=== PATIENT | male | born 1960 | race Caucasian/White ===

== ENCOUNTER → 2024-11-18 | Outpatient (CLI) | payer MEDICARE, SELFPAY | END | disposition home or self-care (01) | LOC: LAB 11:25 | PROVIDERS: Referring Provider Physician Assistant; Visit Provider Physician Assistant | DX: E03.9 Hypothyroidism, unspecified (principal) | CPT/HCPCS: 36415; 84443 ==

== ENCOUNTER 2024-12-28 10:11 | Inpatient (IN) | payer MEDICARE, SELFPAY ==
[2024-10-15 11:53] LABS: Hematocrit 47.4 % (40-54); Hemoglobin 16.6 g/dL (13.0-16.5); Mean Corp Hgb Conc 35.0 g/dL (32-36); Mean Corpuscular Volume 91.3 fL (80-94); Mean Platelet Vol. 10.6 fl (6.2-12.0); Platelet Count 215 K/mm3 (150-450); RBC Distribution Width CV 14.2 % (11.6-14.6); RBC Distribution Width SD 47.8 fl (35.1-43.9); Red Blood Count 5.19 M/mm3 (4.6-6.2); White Blood Count 6.7 K/mm3 (4.4-11.0)
[2024-10-15 12:38] LABS: Anion Gap 12 (5-15); BUN 16 mg/dL (4-19); BUN/Creat Ratio 14.0 RATIO (10-20); Calcium,Total 9.5 mg/dL (7.6-11.0); Carbon Dioxide 25.8 mmol/L (21.0-32.0); Chloride 100 mmol/L (98-108); Glucose 114 mg/dL (70-99); Potassium 4.0 mmol/L (3.3-5.1)
--- NOTE | 2024-10-18 09:13 | PAT.ANESEVAL ---
Pre-Assessment Diagnosis/Proposed Procedure Planned Operative Procedure(s): Carotidstent, in Licensed Physical Therapy Assistant, OR Staff, Callie FERNANDES Anesthesia History Anesthesia History - solutions specialist: Anesthesia History - solutions specialist Hx Hospitalization No 10/05/24 15:10 Any Problems With Anesthesia No 10/05/24 15:10 Cholinesterase deficiency No 10/05/24 15:10 You/Your Family Experience No 10/05/24 15:10 fever (hyperthermia) with Relationship Recent Exposure to Contagious Disease Does patient have nerve No 10/05/24 15:10 stimulator Patient instructed to have device shut off --Does patient have Pacemaker or ICD? When Was Last Pacemaker Check QUESTION #4 FULL TEXT: You/Your Family Experience fever (hyperthermia) with Anesthesia Last Oral Intake Last Oral intake: Last Oral Intake NPO since Meds taken in AM with sips of water? 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 - solutions specialist: PONV - solutions specialist Female No 10/05/24 15:10 HX of Motion Sickness No 10/05/24 15:10 HX of N/V After Surgery No 10/05/24 15:10 Non-Smoker Yes 10/05/24 15:10 Duration of Surgery greater No 10/05/24 15:10 than 60 minutes Number of Risk Factors 1 10/05/24 15:10 PONV Score Low Risk 10/05/24 15:10 Respiratory Assessment Respiratory Assessment - solutions specialist: Respiratory Tract Infection Hx - solutions specialist Hx Respiratory Tract Infection No 10/05/24 15:10 STOP Sleep Apnea STOP Sleep Apnea - solutions specialist: STOP Sleep Apnea - solutions specialist Hx Hypertension Yes 10/05/24 15:10 Hx Sleep Apnea No 10/05/24 15:10 CPAP BIPAP Do you snore loudly (louder No 10/05/24 15:10 than talking or can be heard Do you often feel tired/ No 10/05/24 15:10 fatigued/ sleepy during daytime? Has anyone observed you stop No 10/05/24 15:10 breathing during sleep? STOP Results Negative 10/05/24 15:10 QUESTION #5 FULL TEXT : Do you snore loudly (louder than talking or can be heard through closed doors)? 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 Specify any problems Hx of Preganancy in last 3 N/A 10/05/24 15:10 Months Nurse Filling Out Transfusion [id number] 10/05/24 15:10 & Questions: Date: 10/05/24 10/05/24 15:10 Time: 15:13 10/05/24 15:10 Patient unable to answer at this time (ie. confused, unrespo /Reproduction History /Reproductive History - solutions specialist: /Reproductive Hx- solutions specialist Hx Now Gestational Age (in weeks): EDC: Hx Hx Para Hx Section SAB PFSH Medical History Wears glasses Alcohol use Thyroid disease Restless legs syndrome (RLS) Stroke/cerebrovascular accident Former smoker Carotid artery stenosis Acute right arterial ischemic stroke, middle cerebral artery (MCA) Hypertension Hypothyroid Hyperlipidemia Diabetes mellitus Home Medications ?Medication ?Instructions ?Recorded ?Last Taken ?Type aspirin 81 mg tablet,delayed 81 mg PO QDAY 08/05/24 Unknown History release (Adult Aspirin Regimen) atorvastatin 80 mg tablet 80 mg PO QDAY 08/05/24 Unknown History clopidogrel 75 mg tablet 75 mg PO QDAY 08/05/24 Unknown History hydrochlorothiazide 25 mg tablet 25 mg PO QDAY 08/05/24 Unknown History levothyroxine 75 mcg capsule 225 mcg PO QDAY 08/05/24 Unknown History metformin 1,000 mg tablet 1,000 mg PO BIDWMEAL 08/05/24 Unknown History Allergy/AdvReac Type Severity Reaction Status Date / Time duloxetine Allergy Nausea Verified 09/20/24 10:18 Penicillins Allergy Rash Verified 09/20/24 10:18 Family History Mother Breast cancer Father Alcohol abuse Surgical History H/O carotid endarterectomy (~06/16/17) History of cholecystectomy (~1992) Social History Smoking Status: Former smoker how long ago did patient quit smokin years Audit: Pertinent Findings Pertinent Findings Additional pertinent findings: TSH is 98.2. Should be optimized prior to surgery by physician managing hypothyroidism. Recommendation Anesthesia Recommendation Anesthesia recommendation: F/U recommended
--- NOTE | 2024-12-21 10:12 | EKG12_ITS ---
Test Reason : PREOP Blood Pressure : */* mmHG Vent. Rate : 56 BPM Atrial Rate : 56 BPM P-R Int : 180 ms QRS Dur : 102 ms QT Int : 438 ms P-R-T Axes : 44 -52 41 degrees QTcB Int : 422 ms Sinus bradycardia with sinus arrhythmia Left anterior fascicular block Abnormal ECG Confirmed by Ganga Willams ([id number]), video effects editor BRICE MEDEROS ([id number]) on 12/22/2024 1:43:45 PM Referred By: Roshan Burks Confirmed By: Ganga Willams
[2024-12-21 10:57] LABS: Hematocrit 50.4 % (40-54); Hemoglobin 17.2 g/dL (13.0-16.5); Immature Granulocytes Count 0.010 X10^3/uL (0.0-0.0); Mean Corp Hgb Conc 34.1 g/dL (32-36); Mean Corpuscular Volume 95.6 fL (80-94); Mean Platelet Vol. 10.1 fl (6.2-12.0); NRBC Flagged by Analyzer 0 % (0-5); Platelet Count 200 K/mm3 (150-450); RBC Distribution Width CV 13.6 % (11.6-14.6); RBC Distribution Width SD 48.2 fl (35.1-43.9); Red Blood Count 5.27 M/mm3 (4.6-6.2); White Blood Count 5.6 K/mm3 (4.4-11.0)
[2024-12-21 12:03] LABS: Anion Gap 11 (5-15); BUN 11 mg/dL (4-19); BUN/Creat Ratio 13.6 RATIO (10-20); Calcium,Total 9.5 mg/dL (7.6-11.0); Carbon Dioxide 26.4 mmol/L (21.0-32.0); Chloride 104 mmol/L (98-108); Glucose 95 mg/dL (70-99); Potassium 4.3 mmol/L (3.3-5.1)
--- NOTE | 2024-12-21 16:07 | PAT.ANE_ITS ---
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 When Was Last Pacemaker Check QUESTION #4 FULL TEXT: You/Your Family Experience fever (hyperthermia) with Anesthesia Last Oral Intake Last Oral intake: Last Oral Intake NPO since Meds taken in AM with sips of water? 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 Female No 12/14/24 14:00 HX of Motion Sickness No 12/14/24 14:00 HX of N/V After Surgery No 12/14/24 14:00 Non-Smoker Yes 12/14/24 14:00 Duration of Surgery greater No 12/14/24 14:00 than 60 minutes Number of Risk Factors 1 12/14/24 14:00 PONV Score Low Risk 12/14/24 14:00 Respiratory Assessment Respiratory Assessment - garbage pick up worker: Respiratory Tract Infection Hx - garbage pick up worker Hx Respiratory Tract Infection No 12/14/24 14:00 STOP Sleep Apnea STOP Sleep Apnea - garbage pick up worker: STOP Sleep Apnea - garbage pick up worker Hx Hypertension Yes 12/14/24 14:00 Hx Sleep Apnea No 12/14/24 14:00 CPAP BIPAP Do you snore loudly (louder No 12/14/24 14:00 than talking or can be heard Do you often feel tired/ No 12/14/24 14:00 fatigued/ sleepy during daytime? Has anyone observed you stop No 12/14/24 14:00 breathing during sleep? STOP Results Negative 12/14/24 14:00 QUESTION #5 FULL TEXT : Do you snore loudly (louder than talking or can be heard through closed doors)? 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 Specify any problems Hx of Preganancy in last 3 N/A 12/14/24 14:00 Months Nurse Filling Out Transfusion [email or web address] 12/14/24 14:00 & Questions: Date: 12/14/24 12/14/24 14:00 Time: 14:00 12/14/24 14:00 Patient unable to answer at this time (ie. confused, unrespo /Reproduction History /Reproductive History - garbage pick up worker: /Reproductive Hx- garbage pick up worker Hx Now Gestational Age (in weeks): EDC: Hx Hx Para Hx Section SAB PFSH Medical History (Updated 12/14/24 @ 14:05 by Patrick Magaña) Cardiology follow-up encounter Wears glasses Alcohol use Thyroid disease Restless legs syndrome (RLS) Stroke/cerebrovascular accident Former smoker Carotid artery stenosis Acute right arterial ischemic stroke, middle cerebral artery (MCA) Hypertension Hypothyroid Hyperlipidemia Diabetes mellitus Home Medications ?Medication ?Instructions ?Recorded ?Last Taken ?Type aspirin 81 mg tablet,delayed 81 mg PO QDAY 08/05/24 Un known History release (Adult Aspirin Regimen) atorvastatin 80 mg tablet 80 mg PO QDAY 08/05/24 Unkno wn History clopidogrel 75 mg tablet 75 mg PO QDAY 08/05/24 Unkno wn History hydrochlorothiazide 25 mg tablet 25 mg PO QDAY 5 Unknown History levothyroxine 75 mcg capsule 225 mcg PO QDAY 08/05/24 Unknown History metformin 1,000 mg tablet 1,000 mg PO BIDWMEAL 5 Unknown History Allergy/AdvReac Type Severity Reaction Status Date / Time duloxetine Allergy Nausea Verified 12/14/24 13:58 Penicillins Allergy Rash Verified 12/14/24 13:58 Family History Mother Breast cancer Father Alcohol abuse Surgical History H/O carotid endarterectomy (~06/16/17) History of cholecystectomy (~1992) Social History Smoking Status: Former smoker how long ago did patient quit smokin years Audit: Pertinent Findings HISTORY of Pertinent Findings History of Pertinent Findings: Additional Pertinent Findings Additional pertinent findings TSH is 98.2. Should be 10/18/24 09:17 optimized prior to surgery by physician managing hypothyroidism. Pertinent Findings EKG Perinent findings: 12/21/2024 Sinus bradycardia with sinus arryhthmia, LAFB, abnormal EKG. No previous EKGs Recommendation Anesthesia Recommendation Anesthesia recommendation: F/U recommended Follow up Details Consult Recommendation: Yes Consult Rec Details: Pre-op cardiology consult
--- NOTE | 2024-12-23 14:03 | PAT.ANESEVAL ---
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 When Was Last Pacemaker Check QUESTION #4 FULL TEXT: You/Your Family Experience fever (hyperthermia) with Anesthesia Last Oral Intake Last Oral intake: Last Oral Intake NPO since Meds taken in AM with sips of water? 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 Female No 12/14/24 14:00 HX of Motion Sickness No 12/14/24 14:00 HX of N/V After Surgery No 12/14/24 14:00 Non-Smoker Yes 12/14/24 14:00 Duration of Surgery greater No 12/14/24 14:00 than 60 minutes Number of Risk Factors 1 12/14/24 14:00 PONV Score Low Risk 12/14/24 14:00 Respiratory Assessment Respiratory Assessment - voting machine repairer: Respiratory Tract Infection Hx - voting machine repairer Hx Respiratory Tract Infection No 12/14/24 14:00 STOP Sleep Apnea STOP Sleep Apnea - voting machine repairer: STOP Sleep Apnea - voting machine repairer Hx Hypertension Yes 12/14/24 14:00 Hx Sleep Apnea No 12/14/24 14:00 CPAP BIPAP Do you snore loudly (louder No 12/14/24 14:00 than talking or can be heard Do you often feel tired/ No 12/14/24 14:00 fatigued/ sleepy during daytime? Has anyone observed you stop No 12/14/24 14:00 breathing during sleep? STOP Results Negative 12/14/24 14:00 QUESTION #5 FULL TEXT : Do you snore loudly (louder than talking or can be heard through closed doors)? 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 Specify any problems Hx of Preganancy in last 3 N/A 12/14/24 14:00 Months Nurse Filling Out Transfusion [email or web address] 12/14/24 14:00 & Questions: Date: 12/14/24 12/14/24 14:00 Time: 14:00 12/14/24 14:00 Patient unable to answer at this time (ie. confused, unrespo /Reproduction History /Reproductive History - voting machine repairer: /Reproductive Hx- voting machine repairer Hx Now Gestational Age (in weeks): EDC: Hx Hx Para Hx Section SAB PFSH Medical History (Updated 12/14/24 @ 14:05 by Patrick Magaña) Cardiology follow-up encounter Wears glasses Alcohol use Thyroid disease Restless legs syndrome (RLS) Stroke/cerebrovascular accident Former smoker Carotid artery stenosis Acute right arterial ischemic stroke, middle cerebral artery (MCA) Hypertension Hypothyroid Hyperlipidemia Diabetes mellitus Home Medications ?Medication ?Instructions ?Recorded ?Last Taken ?Type aspirin 81 mg tablet,delayed 81 mg PO QDAY 08/05/24 Unknown History release (Adult Aspirin Regimen) atorvastatin 80 mg tablet 80 mg PO QDAY 08/05/24 Unknown History clopidogrel 75 mg tablet 75 mg PO QDAY 08/05/24 Unknown History hydrochlorothiazide 25 mg tablet 25 mg PO QDAY 08/05/24 Unknown History levothyroxine 75 mcg capsule 225 mcg PO QDAY 08/05/24 Unknown History metformin 1,000 mg tablet 1,000 mg PO BIDWMEAL 08/05/24 Unknown History Allergy/AdvReac Type Severity Reaction Status Date / Time duloxetine Allergy Nausea Verified 12/14/24 13:58 Penicillins Allergy Rash Verified 12/14/24 13:58 Family History Mother Breast cancer Father Alcohol abuse Surgical History H/O carotid endarterectomy (~06/16/17) History of cholecystectomy (~1992) Social History Smoking Status: Former smoker how long ago did patient quit smokin years Audit: Pertinent Findings HISTORY of Pertinent Findings History of Pertinent Findings: EKG Pertinent Findings EKG Perinent findings 12/21/2024 Sinus bradycardia 12/21/24 16:14 with sinus arryhthmia, LAFB , abnormal EKG. No previous EKGs Additional Pertinent Findings Additional pertinent findings TSH is 98.2. Should be 10/18/24 09:17 optimized prior to surgery by physician managing hypothyroidism. Pertinent Findings EKG Perinent findings: 12/19/2024 with normal sinus rhythm and right bundle branch block, LAFB unchanged from 2021. Consult pertinent findings: Patient seen by clay plant treater on 12/23/2024 with comments on EKG and cardiovascular status. Patient was deemed to cardiovascularly stable and okay to proceed with procedure. Not to stop clopidogrel. Recommendation Anesthesia Recommendation Anesthesia recommendation: OPTIMIZED for anesthesia
[2024-12-28] VITALS (27 sets, daily range): BP systolic 111–151; BP diastolic 44–83; PULSE 51–75; RESP 10–21; TEMP 36.2–36.7; O2SAT 94–100; BMI 35.7; BMI 36.6
--- OUTSIDE RECORDS SUMMARY | 2024-12-28 05:40 | XMS RPT_ITS | CCD ---
Author Organization [facility] Care Team Providers Care Simulation Software Engineer Name Role Phone Zaugg, Rachel D Primary Care Provider Zuly Manriquez Attending Provider [phone] Zaugg, Rachel Primary Care Provider Unavailab le Zaugg, Rachel Referring Provider Unavailable Vitaliy MAYORGA, Dr. Islas Attending Provider [phone] ZAUGG, RACHEL Primary Care Provider Zuly Manriquez Referring Provider [phone] ZAUGG, RACHEL Primary Care Provider Unavailab le ZAUGG, RACHEL Referring Provider Unavailable Zaugg DO, Rachel D Primary Care Provider Zaugg DO, Rachel D Primary Care Provider ZAUGG, RACHEL D Primary Care Unavailable ALLIE GRANDE Attending Unavailable ZAUGG, RACHEL Attending Unavailable ZAUGG, RACHEL Primary Care Unavailable ZAUGG, RACHEL Attending Unavailable ZAUGG, RACHEL Primary Care Unavailable AUBRIE PALMER Attending Unavailable ZAUGG, RACHEL Primary Care Unavailable BEN JUSTICE Attending Unavailable ZAUGG, RACHEL Primary Care Unavailable MART ATKINSON Attending Unavailable MART ATKINSON Referring Unavailable ZAUGG, RACHEL Primary Care Unavailable Ruggiero, Zuly Attending Unavailable Ruggiero, Zuly Attending Unavailable GALOWNIA, A Primary Care Unavailable GALOWNIA, A Referring Unavailable Ruggiero, Zuly Attending Unavailable Ruggiero, Zuly Referring Unavailable GALOWNIA, A Primary Care Unavailable Ruggiero, Zuly Attending Unavailable Ruggiero, Zuly Referring Unavailable GALOWNIA, A Primary Care Unavailable Ruggiero, Zuly Attending Unavailable GALOWNIA, A Primary Care Unavailable GALOWNIA, A Referring Unavailable Mart Atkinson Attending Unavailable Mart Atkinson Referring Unavailable Sim LEBLANC Primary Care Unavailable Mart Atkinson Admitting Unavailable Mart Atkinson Attending Unavailable Allergies Allergy Classification Reported Allergen(s) Allergy Type Date of Onset Reaction(s) Facility (13 sources) Erythromycin; Translations: [ERYTHROMYCIN] Drug Allergy 8 [place], [place] (6 sources) Penicillins; Translations: [PENICILLINS] Propensity to adverse reactions to drug 9 [place] (20 sources) DULoxetine; Translations: [DULOXETINE] Drug Allergy 2 Other (See Comments), Nausea Only, Vomiting, Other: See Comments [facility] [employer] Phone: (20 sources) Penicillins Drug Allergy 2 [facility] (2 sources) Penicillins Allergy to substance 5 [facility] (1 source) Penicillins Drug Allergy 9 Unknown [facility] (1 source) DULoxetine Drug Allergy 5 [facility] (1 source) Penicillins Drug allergy (disorder) 5 [facility] Medications Current Medications Medication Drug Class(es) Dates Sig (Normalized) Sig (Original) amLODIPine 5 mg oral tablet (20 sources) Dihydropyridine Calcium Channel Alejandra Start: 10-22-2022 End: 11-04-2024 take 1 tablet by mouth once daily amLODIPine (Norvasc) 5 MG tablet Indications: Primary hypertension Take 1 tablet (5 mg) by mouth daily. 90 tablet 3 11/04/2024 Active Start: 02-10-2022 take 1 tablet by casimiro th in the morning amLODIPine (Norvasc) 5 MG tablet Take 5 mg by mouth in the morning. 0 02/10/2022 Active Start: 01-17-2022 take 1 tablet by casimiro th once daily amLODIPine (NORVASC) 5 MG tablet Indications: Hypertension, unspecified type Take 1 tablet by mouth daily 90 tablet 1 01/17/2022 Active Start: 06-28-2021 take 1 tablet by casimiro th once daily amLODIPine (NORVASC) 5 MG tablet Indications: Hypertension, unspecified type Take 1 tablet by mouth daily 90 tablet 1 06/28/2021 Active Start: 01-19-2021 take 1 tablet by casimiro th once daily amLODIPine (NORVASC) 5 MG tablet Indications: Hypertension, unspecified type Take 1 tablet by mouth once daily 90 tablet 1 01/19/2021 Active Start: 01-13-2020 take 1 tablet by casimiro th once daily amLODIPine (NORVASC) 5 MG tablet Indications: Hypertension, unspecified type TAKE 1 TABLET BY MOUTH ONCE DAILY 90 tablet 3 01/13/2020 Active Start: 02-04-2019 take 1 tablet by casimiro th once daily amLODIPine (NORVASC) 5 MG tablet Indications: Hypertension, unspecified type TAKE 1 TABLET BY MOUTH ONCE DAILY 90 tablet 3 04/08/2019 Active aspirin 81 mg delayed release oral tablet (20 sources) Platelet Aggregation Inhibitor, Nonsteroidal Anti-inflammatory Drug Start: 02-04-2019 take 1 tablet by mouth in the morning aspirin 81 MG EC tablet Take 1 tablet by mouth in the morning. 02/04/2019 Active take 1 tablet by mouth once carri y aspirin 81 mg chewable tablet Take 81 mg by mouth once daily. Active atorvastatin 80 mg oral tablet (20 sources) HMG-CoA Reductase Inhibitor Start: 01-17-2022 End: 11-04-2024 take 1 tablet by mouth once daily in the evening atorvastatin (Lipitor) 80 MG tablet Indications: Type 2 diabetes mellitus with hyperglycemia, without long-term current use of insulin ([facility]) , Mixed hyperlipidemia , History of ischemic right MCA stroke Take 1 tablet (80 mg) by mouth every evening. 90 tablet 3 11/04/2024 Active Start: 06-28-2021 take 1 tablet by casimiro th once daily in the evening atorvastatin (LIPITOR) 80 MG tablet Indications: Type 2 diabetes mellitus with hyperglycemia, without long-term current use of insulin ([facility]) , Carotid artery stenosis, symptomatic, bilateral TAKE 1 TABLET BY MOUTH ONCE DAILY IN THE EVENING 90 tablet 1 06/28/2021 Active Start: 01-19-2021 take 1 tablet by casimiro th once daily in the evening atorvastatin (LIPITOR) 80 MG tablet Indications: Type 2 diabetes mellitus with hyperglycemia, without long-term current use of insulin ([facility]) , Carotid artery stenosis, symptomatic, bilateral TAKE 1 TABLET BY MOUTH ONCE DAILY IN THE EVENING 90 tablet 1 01/19/2021 Active Start: 02-04-2019 take 1 tablet by casimiro th once daily in the evening atorvastatin (LIPITOR) 80 MG tablet Indications: Type 2 diabetes mellitus with hyperglycemia, without long-term current use of insulin ([facility]) , Carotid artery stenosis, symptomatic, bilateral TAKE 1 TABLET BY MOUTH EVERY EVENING 90 tablet 3 01/13/2020 Active Blood Pressure KIT (3 sources) Start: 06-17-2017 Blood Pressure KIT 1 kit by Does not apply route 2 times daily 1 kit 0 06/17/2017 Active clopidogrel 75 mg oral tablet (20 sources) [id number] Platelet Inhibitor Start: 01-31-2023 End: 11-04-2024 take 1 tablet by mouth once daily clopidogrel (Plavix) 75 MG tablet Indications: History of ischemic right MCA stroke Take 1 tablet (75 mg) by mouth daily. 90 tablet 3 11/04/2024 Active Start: 12-14-2021 End: 08-08-2022 take 1 tablet by mouth once daily clopidogrel (Plavix) 75 MG tablet Take 1 tablet (75 mg) by mouth daily. 90 tablet 1 08/08/2022 Active Start: 01-19-2021 take 1 tablet by casimiro th once daily clopidogrel (PLAVIX) 75 MG tablet Indications: Carotid artery stenosis, symptomatic, bilateral , Type 2 diabetes mellitus with hyperglycemia, without long-term current use of insulin ([facility]) Take 1 tablet by mouth once daily 90 tablet 1 01/19/2021 Active Start: 01-13-2020 take 1 tablet by casimiro th once daily clopidogrel (PLAVIX) 75 MG tablet Indications: Carotid artery stenosis, symptomatic, bilateral , Type 2 diabetes mellitus with hyperglycemia, without long-term current use of insulin ([facility]) TAKE 1 TABLET BY MOUTH ONCE DAILY 90 tablet 3 01/13/2020 Active Start: 02-04-2019 take 1 tablet by casimiro th once daily clopidogrel (PLAVIX) 75 MG tablet Indications: Carotid artery stenosis, symptomatic, bilateral , Type 2 diabetes mellitus with hyperglycemia, without long-term current use of insulin ([facility]) TAKE 1 TABLET BY MOUTH ONCE DAILY 90 tablet 1 05/03/2019 Active doxycycline hyclate 100 mg oral capsule (3 sources) Tetracycline-class Drug Start: 12-09-2024 End: 12-10-2024 take 2 capsules by mouth once daily doxycycline hyclate (VIBRAMYCIN) 100 mg capsule Take 2 capsules by mouth once daily for 1 day. 2 capsule 12/09/2024 12/10/2024 Active Start: 2019 End: 06-09-2019 doxycycline monohydrate (ADO XA) 100 MG tablet Take 100 mg by mouth 0 2019 06/09/2019 Active DULoxetine 60 mg delayed release oral capsule (2 sources) Serotonin and Norepinephrine Reuptake Inhibitor Start: 02-08-2021 take 1 capsule by mouth once daily DULoxetine (CYMBALTA) 60 MG extended release capsule Take 1 capsule by mouth daily 90 capsule 1 02/08/2021 Active ezetimibe 10 mg oral tablet (6 sources) Dietary Cholesterol Absorption Inhibitor Start: 12-23-2024 End: 12-23-2025 take 1 tablet by mouth once daily ezetimibe (Zetia) 10 MG tablet Take 1 tablet (10 mg) by mouth daily. 90 tablet 3 12/23/2024 12/23/2025 Active Start: 10-11-2020 take 1 tablet by casimiro th once daily ezetimibe (ZETIA) 10 MG tablet Take 1 tablet by mouth daily 90 tablet 3 10/11/2020 Active Start: 05-11-2019 take 1 tablet by casimiro th once daily ezetimibe (ZETIA) 10 MG tablet Take 1 tablet by mouth daily 90 tablet 3 05/11/2019 Active gabapentin 100 mg oral capsule (20 sources) Anti-epileptic Agent Start: 01-17-2022 End: 05-22-2023 take 1 capsule by mouth three times daily gabapentin (Neurontin) 100 MG capsule TAKE 1 CAPSULE BY MOUTH THREE TIMES DAILY FOR 90 DAYS 270 capsule 3 06/05/2022 Active Start: 01-13-2020 End: 12-25-2021 take 1 capsule by mouth three times daily gabapentin (NEURONTIN) 300 MG capsule Indications: Neuropathy Take 1 capsule by mouth 3 times daily for 180 days. 270 capsule 1 06/28/2021 12/25/2021 Active Start: 02-04-2019 End: 05-05-2019 take 1 capsule by mouth three times daily gabapentin (NEURONTIN) 300 MG capsule Indications: Central pain syndrome Take 1 capsule by mouth 3 times daily for 90 days. 270 capsule 3 02/04/2019 05/05/2019 Active GABAPENTIN ORAL Take by mouth. Active glimepiride 4 mg oral tablet (9 sources) Sulfonylurea Start: 03-22-2021 take 1 tablet by mouth once daily in the morning glimepiride (AMARYL) 4 MG tablet Indications: Type 2 diabetes mellitus with hyperglycemia, without long-term current use of insulin (HCC) TAKE 1 TABLET BY MOUTH ONCE DAILY IN THE MORNING 30 tablet 1 03/22/2021 Active Start: 02-08-2021 take 1 tablet by casimiro th once daily in the morning glimepiride (AMARYL) 4 MG tablet Indications: Type 2 diabetes mellitus with hyperglycemia, without long-term current use of insulin (HCC) TAKE 1 TABLET BY MOUTH ONCE DAILY IN THE MORNING 30 tablet 2 02/08/2021 Active Start: 01-13-2020 take 1 tablet by casimiro th once daily in the morning glimepiride (AMARYL) 2 MG tablet Indications: Type 2 diabetes mellitus with hyperglycemia, without long-term current use of insulin (HCC) Take 1 tablet by mouth every morning 90 tablet 3 01/13/2020 Active Start: 02-04-2019 take 1 tablet by casimiro th once daily in the morning glimepiride (AMARYL) 2 MG tablet Indications: Type 2 diabetes mellitus with hyperglycemia, without long-term current use of insulin ([facility]) Take 1 tablet by mouth every morning 90 tablet 3 02/04/2019 Active glucose monitoring kit (FREESTYLE) monitoring kit (11 sources) Start: 02-04-2019 glucose monitoring kit (FREESTYLE) monitoring kit Indications: Type 2 diabetes mellitus with hyperglycemia, without long-term current use of insulin ([facility]) 1 kit by Does not apply route daily Brand per patient or insurance preference. 1 kit 0 02/04/2019 Active glyBURIDE (1 source) Sulfonylurea GLYBURIDE ORAL T madeleine by mouth. Active 12 hr guaiFENesin 600 mg extended release oral tablet (2 sources) Start: 06-07-2019 End: 06-22-2019 take 1 tablet by mouth twice daily guaiFENesin (MUCINEX) 600 MG extended release tablet Take 1 tablet by mouth 2 times daily for 15 days 30 tablet 0 06/07/2019 06/22/2019 Active hydroCHLOROthiazide 25 mg oral tablet (20 sources) Thiazide Diuretic Start: 02-04-2019 End: 11-04-2024 take 1 tablet by mouth once daily Hydrochlorothiazide 25 mg tablet Active 25 mg PO daily August 05, 2024 1:00am levothyroxine sodium 0.075 mg oral tablet (20 sources) l-Thyroxine Start: 08-05-2024 take 3 capsules by mouth once daily Levothyroxine 75 mcg capsule Active 225 ug PO daily August 05, 2024 1:00am Start: 10-22-2022 End: 11-04-2024 take 3 tablets by mouth once daily levothyroxine (Synthroid, Levoxyl) 75 MCG tablet Indications: Hypothyroidism, unspecified type Take 3 tablets (225 mcg) by mouth daily. 270 tablet 3 11/04/2024 Active Start: 10-02-2021 take 3 tablets by mo uth in the morning levothyroxine (Synthroid, Levoxyl) 75 MCG tablet Take 3 tablets by mouth in the morning. 0 10/02/2021 Active Start: 06-29-2021 take 3 tablets by mo uth once daily levothyroxine (SYNTHROID) 75 MCG tablet Indications: Hypothyroidism, unspecified type Take 3 tablets by mouth daily 270 tablet 1 06/29/2021 Active Start: 01-26-2020 take 1 tablet by casimiro th once daily levothyroxine (SYNTHROID) 200 MCG tablet Indications: Hypothyroidism, unspecified type TAKE 1 TABLET BY MOUTH ONCE DAILY 90 tablet 3 05/19/2020 Active Start: 05-06-2019 take 1 tablet by casimiro th once daily levothyroxine (SYNTHROID) 150 MCG tablet Indications: Hypothyroidism, unspecified type TAKE 1 TABLET BY MOUTH ONCE DAILY 90 tablet 3 05/06/2019 Active Start: 02-04-2019 take 1 tablet by casimiro th once daily levothyroxine (SYNTHROID) 125 MCG tablet Indications: Hypothyroidism, unspecified type TAKE 1 TABLET BY MOUTH ONCE DAILY 90 tablet 3 02/04/2019 Active 24 hr metFORMIN hydrochloride 500 mg extended release oral tablet (20 sources) Biguanide Start: 08-05-2024 take 1 tablet by mouth twice daily at mealtime Metformin 1,000 mg tablet Active 1000 mg PO 2 times per day with meals August 05, 2024 1:00am Start: 06-10-2024 End: 11-04-2024 take 2 tablets by mouth twice daily at mealtime metFORMIN XR (Glucophage-XR) 500 MG 24 hr tablet Indications: Type 2 diabetes mellitus with hyperglycemia, without long-term current use of insulin (HCC) Take 2 tablets (1,000 mg) by mouth 2 times daily (with meals). 360 tablet 3 11/04/2024 Active Start: 05-22-2023 End: 06-10-2024 take 2 tablets by mouth every twenty-four hours in the morning metFORMIN XR (Glucophage-XR) 500 MG 24 hr tablet Indications: Type 2 diabetes mellitus with hyperglycemia, without long-term current use of insulin (HCC) Take 2 tablets (1,000 mg) by mouth in the morning and 2 tablets (1,000 mg) in the evening. Take with meals. 360 tablet 1 12/09/2023 06/10/2024 Discontinued (Reorder) Start: 05-05-2023 End: 05-22-2023 take 2 tablets by mouth twice daily at mealtime metFORMIN XR (Glucophage-XR) 500 MG 24 hr tablet TAKE 2 TABLETS BY MOUTH TWICE DAILY WITH MEALS 360 tablet 0 05/05/2023 05/22/2023 Discontinued (Reorder) Start: 01-17-2022 End: 05-05-2023 take 1 tablet by mouth every twenty-four hours metFORMIN XR (Glucophage-XR) 500 MG 24 hr tablet Take 1,000 mg by mouth. 0 01/17/2022 05/05/2023 Discontinued Start: 01-17-2022 take 2 tablets by mo uth twice daily at mealtime metFORMIN (GLUCOPHAGE-XR) 500 MG extended release tablet Indications: Type 2 diabetes mellitus with hyperglycemia, without long-term current use of insulin (HCC) Take 2 tablets by mouth 2 times daily (with meals) 360 tablet 3 01/17/2022 Active Start: 02-07-2021 take 2 tablets by mo uth twice daily at mealtime metFORMIN (GLUCOPHAGE-XR) 500 MG extended release tablet Indications: Type 2 diabetes mellitus with hyperglycemia, without long-term current use of insulin (HCC) Take 2 tablets by mouth 2 times daily (with meals) 360 tablet 3 02/07/2021 Active Start: 01-13-2020 take 2 tablets by mo uth twice daily at mealtime metFORMIN (GLUCOPHAGE-XR) 500 MG extended release tablet Indications: Type 2 diabetes mellitus with hyperglycemia, without long-term current use of insulin (HCC) Take 2 tablets by mouth 2 times daily (with meals) 360 tablet 3 01/13/2020 Active Start: 02-04-2019 take 2 tablets by mo uth twice daily at mealtime metFORMIN (GLUCOPHAGE-XR) 500 MG extended release tablet Indications: Type 2 diabetes mellitus with hyperglycemia, without long-term current use of insulin (HCC) Take 2 tablets by mouth 2 times daily (with meals) 360 tablet 3 02/04/2019 Active metformin HCl (M ETFORMIN ORAL) Take by mouth. Active sertraline 100 mg oral tablet (8 sources) Serotonin Reuptake Inhibitor Start: 05-18-2020 take 2 tablets by mouth once daily sertraline (ZOLOFT) 100 MG tablet Indications: Moderate episode of recurrent major depressive disorder (HCC) Take 2 tablets by mouth daily 180 tablet 3 05/18/2020 Active Start: 01-13-2020 take 2 tablets by mo uth once daily sertraline (ZOLOFT) 100 MG tablet Indications: Moderate episode of recurrent major depressive disorder (HCC) Take 2 tablets by mouth daily 180 tablet 3 01/13/2020 Active Start: 02-04-2019 take 1.5 tablets by mouth once daily sertraline (ZOLOFT) 100 MG tablet Indications: Moderate episode of recurrent major depressive disorder (HCC) Take 1.5 tablets by mouth daily 135 tablet 3 02/04/2019 Active sertraline (ZOLO FT) 100 mg tablet Take 150 mg by mouth once daily. Active Completed/Discontinued Medications Medication Drug Class(es) Dates Sig (Normalized) Sig (Original) iopamidol (Isovue-370) 76 % injection 75 mL (2 sources) Start: 09-14-2024 End: 09-14-2024 take 75 mL intravenously once as needed 75 mL, IntraVENous, IMG once PRN, contrast, Starting on Fri09/14/24 at 1158, For 1 dose 24 hr venlafaxine 37.5 mg extended release oral capsule (20 sources) Serotonin and Norepinephrine Reuptake Inhibitor Start: 08-05-2024 End: 08-06-2024 take 1 capsule by mouth once daily Venlafaxine 37.5 mg capsule,extended release 24hr Discontinued 37.5 mg PO daily August 05, 2024 1:00am August 06, 2024 12:06pm Start: 06-05-2022 End: 06-10-2024 take 1 capsule by mouth once daily venlafaxine XR (Effexor XR) 37.5 MG 24 hr capsule Indications: Neuropathy , Recurrent mild major depressive disorder with anxiety (HCC) Take 1 capsule (37.5 mg) by mouth daily. 90 capsule 1 12/09/2023 06/10/2024 Discontinued (Therapy completed) Start: 01-17-2022 End: 06-05-2022 take 1 capsule by mouth every twenty-four hours in the morning venlafaxine XR (Effexor XR) 37.5 MG 24 hr capsule Take 1 capsule by mouth in the morning. 0 01/17/2022 06/05/2022 Discontinued Start: 01-17-2022 take 1 capsule by mo uth once daily venlafaxine (EFFEXOR XR) 37.5 MG extended release capsule Indications: Neuropathy , Current mild episode of major depressive disorder without prior episode (HCC) Take 1 capsule by mouth daily 30 capsule 2 01/17/2022 Active Start: 09-27-2021 take 1 capsule by mo uth once daily venlafaxine (EFFEXOR XR) 37.5 MG extended release capsule Take 1 capsule by mouth daily 30 capsule 2 09/27/2021 Active Problems Active Problems Problem Classification Problem Date Documented Date Episodic/Chronic Adjustment disorders (1 source) Adjustment disorder with depressed mood; Translations: [Adjustment disorder with depressed mood] Onset: 10-07-2017 10-07-2017 Chronic Anxiety disorders (9 sources) Mixed anxiety and depressive disorder; Translations: [Other specified anxiety disorders] Onset: 01-18-2022 03-14-2022 Chronic Diabetes mellitus with complications (18 sources) Hyperglycemia due to type 2 diabetes mellitus; Translations: [Type 2 diabetes mellitus with hyperglycemia] Onset: 09-28-2021 06-10-2024 Chronic Diabetes mellitus without complication (20 sources) Type 2 diabetes mellitus; Translations: [Type 2 diabetes mellitus without complications] Onset: 06-12-2017 06-27-2017 Chronic Disorders of lipid metabolism (20 sources) Hyperlipidemia; Translations: [Hyperlipidemia, unspecified] Onset: 10-11-2020 10-11-2020 Chronic E Codes: Natural/environment (1 source) Bitten or stung by nonvenomous insect and other nonvenomous arthropods, initial encounter; Translations: [Tick bite of right thigh, initial encounter] Onset: 12-09-2024 Episodic Essential hypertension (20 sources) Hypertensive disorder; Translations: [Essential hypertension] Onset: 06-12-2017 06-27-2017 Chronic Mood disorders (20 sources) Moderate major depression, single episode; Translations: [Major depressive disorder, single episode, moderate] Onset: 10-07-2017 Resolved: 05-22-2023 02-07-2019 Chronic Occlusion or stenosis of precerebral arteries (20 sources) Symptomatic carotid artery stenosis; Translations: [Occlusion and stenosis of bilateral carotid arteries] Onset: 01-25-2020 06-27-2017 Chronic Comment on above: CTA- images reviewed , 95% stenosis left ICA with more severe degree of stenosis at distal extent of plaque, mild calcification more proximal lesion, high bifurcation Other circulatory disease (2 sources) Personal history of transient ischemic attack (TIA), and cerebral infarction without residual deficits; Translations: [Personal history of transient ischemic attack (TIA), and cerebral infarction without residual deficits] Onset: 04-06-2022 Episodic Other nervous system disorders (5 sources) Central pain syndrome; 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] Onset: 10-07-2017 10-07-2017 Chronic Other nervous system disorders (20 sources) Neuropathy; Translations: [Polyneuropathy, unspecified] Onset: 05-13-2019 08-05-2019 Chronic Other nutritional; endocrine; and metabolic disorders (20 sources) Severe obesity; Translations: [Morbid (severe) obesity due to excess calories] Onset: 01-22-2018 01-22-2018 Chronic Other nutritional; endocrine; and metabolic disorders (2 sources) Body mass index 30+ - obesity; Translations: [Body mass index (BMI) 38.0-38.9, adult] Onset: 09-27-2021 09-27-2021 Chronic Other nutritional; endocrine; and metabolic disorders (2 sources) Morbid (severe) obesity due to excess calories; Translations: [Morbid (severe) obesity due to excess calories (HCC)] Onset: 03-14-2022 Chronic Other nutritional; endocrine; and metabolic disorders (2 sources) Body mass index (BMI) 38.0-38.9, adult; Translations: [Body mass index (BMI) 38.0-38.9, adult] Onset: 03-14-2022 Chronic Other screening for suspected conditions (not mental disorders or infectious disease) (14 sources) Patient encounter status; Translations: [Encounter for screening for malignant neoplasm of colon] Onset: 10-07-2017 Resolved: 11-06-2017 11-06-2017 Episodic Peripheral and visceral atherosclerosis (6 sources) Atherosclerosis of artery ; Translations: [Atherosclerosis of artery] Onset: 06-16-2017 06-27-2017 Chronic Residual codes; unclassified (2 sources) Chronic pain; Translations: [Chronic left shoulder pain] Onset: 08-05-2019 08-05-2019 Chronic Residual codes; unclassified (20 sources) Hypersomnia; Translations: [Hypersomnia, unspecified] Onset: 01-22-2018 01-13-2020 Chronic Superficial injury; contusion (2 sources) Tick bite; Translations: [Insect bite (nonvenomous), right thigh, initial encounter] Onset: 12-09-2024 12-09-2024 Episodic Thyroid disorders (20 sources) Hypothyroidism; Translations: [Hypothyroidism, unspecified] Onset: 06-12-2017 06-27-2017 Chronic Unclassified (3 sources) Severe obesity; Translations: [Class 3 obesity in adult] Onset: 01-22-2018 01-22-2018 Unclassified (2 sources) New Patient; Translations: [New Patient] Onset: 07-05-2024 Unclassified (1 source) Obesity, class 2; Translations: [Obesity, class 2] Onset: 03-14-2022 Past or Other Problems Problem Classification Problem Date Documented Date Episodic/Chronic Blindness and vision defects (16 sources) Diplopia; Translations: [Diplopia] Onset: 06-11-2024 06-11-2024 Episodic Coma; stupor; and brain damage (5 sources) Daytime somnolence; Translations: [Daytime somnolence] Onset: 01-22-2018 01-22-2018 Episodic Other and ill-defined cerebrovascular disease (6 sources) Cerebral ischemia; Translations: [Transient cerebral ischemia] Resolved: 10-07-2017 10-07-2017 Chronic Other circulatory disease (20 sources) History of cerebrovascular accident; Translations: [Personal history of transient ischemic attack (TIA), and cerebral infarction without residual deficits] Onset: 06-11-2017 02-04-2019 Episodic Other liver diseases (20 sources) Enzyme level - finding; Translations: [Transaminitis] Onset: 02-03-2020 Resolved: 05-22-2023 02-03-2020 Episodic Other lower respiratory disease (20 sources) Air trapping; Translations: [Other specified symptoms and signs involving the circulatory and respiratory systems] Onset: 08-05-2019 08-05-2019 Episodic Other nervous system disorders (1 source) Hyperalgesia; Translations: [Hyperalgesia] Onset: 01-22-2018 01-22-2018 Episodic Other non-traumatic joint disorders (20 sources) Chronic pain of left upper limb; Translations: [Pain in left shoulder] Onset: 08-05-2019 08-05-2019 Episodic Pneumonia (except that caused by tuberculosis or sexually transmitted disease) (1 source) Infective pneumonia Episodic Residual codes; unclassified (2 sources) Hypersomnia; Translations: [Hypersomnolence] Onset: 01-22-2018 01-13-2020 Episodic Transient cerebral ischemia (5 sources) Transient cerebral ischemia; Translations: [Cerebral ischemia] Resolved: 10-07-2017 10-07-2017 Chronic Unclassified (7 sources) Patient encounter status; Translations: [Colon cancer screening] Onset: 10-07-2017 Resolved: 11-06-2017 11-06-2017 Unclassified (1 source) Obesity, class 2; Translations: [Obesity, class 2] Onset: 06-10-2024 Results Test Name Value Interpretation Reference Range Facility MR/PAT.Corin 12-23-2024 MR/PAT.[facility] Medical Records Department [address] [place] [address] PAT - Anesthesia 12/23/24 1403 MR#: [id number] Acct: [id number] Name: LUIS ESPINO Rep #: [id number] : 1960 64 From: Misty Taylor MD PCP: RACHEL RANGEL Status:PRE IN Y Race: C Location: [facility] Pre-Assessment Diagnosis/Proposed Procedure Planned Operative Procedure(s): T CAR Anesthesia History 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 When Was Last Pacemaker Check QUESTION #4 FULL TEXT: You/Your Family Experience fever (hyperthermia) with Anesthesia Last Oral Intake Last Oral intake: Last Oral Intake NPO since Meds taken in AM with sips of water? 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 Female No 12/14/24 14:00 HX of Motion Sickness No 12/14/24 14:00 HX of N/V After Surgery No 12/14/24 14:00 Non-Smoker Yes 12/14/24 14:00 Duration of Surgery greater No 12/14/24 14:00 than 60 minutes Number of Risk Factors 1 12/14/24 14:00 PONV Score Low Risk 12/14/24 14:00 Respiratory Assessment Respiratory Assessment - construction supervisor/carpenter: Respiratory Tract Infection Hx - construction supervisor/carpenter Hx Respiratory Tract Infection No 12/14/24 14:00 STOP Sleep Apnea STOP Sleep Apnea - construction supervisor/carpenter: STOP Sleep Apnea - construction supervisor/carpenter Hx Hypertension Yes 12/14/24 14:00 Hx Sleep Apnea No 12/14/24 14:00 CPAP BIPAP Do you snore loudly (louder No 12/14/24 14:00 than talking or can be heard Do you often feel tired/ No 12/14/24 14:00 fatigued/ sleepy during daytime? Has anyone observed you stop No 12/14/24 14:00 breathing during sleep? STOP Results Negative 12/14/24 14:00 QUESTION #5 FULL TEXT : Do you snore loudly (louder than talking or can be heard through closed doors)? 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 Specify any problems Hx of Preganancy in last 3 N/A 12/14/24 14:00 Months Nurse Filling Out Transfusion [email or web address] 12/14/24 14:00 Questions: Date: 12/14/24 12/14/24 14:00 Time: 14:00 12/14/24 14:00 Patient unable to answer at this time (ie. 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: /Reproductive Hx- construction supervisor/carpenter Hx Now Gestational Age (in weeks): EDC: Hx Hx Para Hx Section SAB PFSH Medical History (Updated 12/14/24 @ 14:05 by Patrick Magaña) Cardiology follow-up encounter Wears glasses Alcohol use Thyroid disease Restless legs syndrome (RLS) Stroke/cerebrovascular accident Former smoker Carotid artery stenosis Acute right arterial ischemic stroke, middle cerebral artery (MCA) Hypertension Hypothyroid Hyperlipidemia Diabetes mellitus Home Medications ???Medication ???Instructions ???Recorded ???Last Taken ???Type aspirin 81 mg tablet,delayed 81 mg PO QDAY 08/05/24 Unknown His tory release (Adult Aspirin Regimen) atorvastatin 80 mg tablet 80 mg PO QDAY 08/05/24 Unknown His tory clopidogrel 75 mg tablet 75 mg PO QDAY 08/05/24 Unknown His tory hydrochlorothiazide 25 mg tablet 25 mg PO QDAY 08/05/24 Unknown His tory levothyroxine 75 mcg capsule 225 mcg PO QDAY 08/05/24 Unknown H istory metformin 1,000 mg tablet 1,000 mg PO BIDWMEAL 08/05/24 Unkn own History Allergy/AdvReac Type Severity Reaction Status Date / Time duloxetine Allergy Nausea Verified 12/14/24 13:58 Penicillins (more content not included)... Normal [facility] Office Visiton 12-23-2024 Follow-up visit [id number] Luis Espino 1960 M Date Provider Department Center 12/23/2024 [id number] [facility] [address] Family History Problem Relation Age of Onset Breast cancer Mother Other Mother Alcohol abuse Father Family Status - Relation Status Age at Mother 78 Notes: aplastic anemia Father 42 Notes: Cirrhosis Sister Alive Sister Alive Level of Service:49737 [place] OFFICE/OUTPATIENT NEW MODERATE MDM 45 MINUTES Reason for Visit and Comments: Follow-up [386872] Pre-op Exam [709011] Normal [facility] Progress Noteon 12-23-2024 Progress Note [facility] Medical [facility] Cardiology [facility] [place] [address] [facility] [address] Dept: [phone] Dept Visit type: Established : 1960 DATE of SERVICE: 12/23/2024 Chief Complaint: Chief Complaint Patient presents with Follow-up Pre-op Exam History of Present Illness: Luis Espino is a 64 y.o. male with history of severe symptomatic right carotid arterial occlusive disease post right carotid endarterectomy June 2017, hypertension, hyperlipidemia, VAL, hypothyroidism, former tobacco abuse, and TIA. CTA neck was obtained showing subtotal occlusion on R ICA and 60% stenosis of L ICA. Prior to endarterectomy. Residual paresthesias left arm. Has done very well post surgery. Good BP control. No tobacco, LDL still elevated on max atorvastatin. Now has insurance and Zetia an option. -Carotid duplex 09/29/20 looked good, abnormal flow in L vert but patent -CTA neck 09/14/24 98% stenosis LICA ASX. Referral for pre op clearance with DR Atkinson. No chest pain or abnormal SOB. Needed hypothyroidism treated. LDL 6 m aoi uncontrolled at 163 mg%. Now back on highh intensity statin. Compliance is good. No angina. Past Medical History: Medical History[1] Past Surgical History Surgical History[2] Family History Family History[3] Social History Social History[4] Allergies: Allergies[5] Medications: Current Medications[6] Review of Systems: Review of Systems Constitutional: Negative for activity change, chills, diaphoresis, fatigue and fever. HENT: Negative for nosebleeds and trouble swallowing. Eyes: Negative for discharge and visual disturbance. Respiratory: Negative for apnea, cough, chest tightness, shortness of breath and wheezing. Cardiovascular: Negative for chest pain, palpitations and leg swelling. Gastrointestinal: Negative for abdominal distention, abdominal pain, blood in stool, diarrhea, nausea and vomiting. Endocrine: Negative for cold intolerance and heat intolerance. Genitourinary: Negative for hematuria. Musculoskeletal: Negative for gait problem and myalgias. Skin: Negative for color change and rash. Neurological: Negative for dizziness, seizures, syncope, facial asymmetry, speech difficulty, weakness, light-headedness, numbness and headaches. Hematological: Does not bruise/bleed easily. Psychiatric/Behavioral: Negative for dysphoric mood. Physical Examination: Vitals: Vitals: 12/23/24 1056 BP: 138/72 BP Location: Right arm Patient Position: Sitting BP Cuff Size: Adult Pulse: 66 Weight: 252 lb (114 kg) Height: 5' 11 (1.803 m) Body mass index is 35.15 kg/m?. Physical Exam Constitutional: Appearance: Normal appearance. He is obese. HENT: Head: Normocephalic and atraumatic. Eyes: Extraocular Movements: Extraocular movements intact. Conjunctiva/sclera: Conjunctivae normal. Pupils: Pupils are equal, round, and reactive to light. Neck: Vascular: No carotid bruit. Comments: No thyromegaly Cardiovascular: Rate and Rhythm: Normal rate and regular rhythm. Pulses: Normal pulses. Carotid pulses are 2+ on the right side and 2+ on the left side. Radial pulses are 2+ on the right side and 2+ on the left side. Femoral pulses are 2+ on the right side and 2+ on the left side. Popliteal pulses are 2+ on the right side and 2+ on the left side. Dorsalis pedis pulses are 2+ on the right side and 2+ on the left side. Posterior tibial pulses are 2+ on the right side and 2+ on the left side. Heart sounds: Murmur heard. Crescendo decrescendo systolic murmur is present with a grade of 1/6. No gallop. Pulmonary: Breath sounds: Normal breath sounds and air entry. Abdominal: General: Bowel sounds are normal. Palpations: Abdomen is soft. Tenderness: There is no abdominal tenderness. Musculoskeletal: General: Normal range of motion. Cervical back: Normal range of motion and neck supple. Right lower leg: No edema. Left lower leg: No edema. Skin: General: Skin is warm and dry. Findings: No lesion. Neurological: General: No focal deficit present. Mental Status: He is alert and oriented to person, place, and time. Mental status is at baseline. Psychiatric: Mood and Affect: Mood normal. Behavior: Behavior normal. Thought Content: Thought content normal. Laboratory Tests: Lab Results Component Value Date WBC 6.3 06/10/2024 HGB 15.8 06/10/2024 HCT 47.7 06/10/2024 MCV 95.8 06/10/2024 PLT 234 06/10/2024 Lab Results Component Value Date GLUCOSE 106 06/10/2024 CALCIUM 9.5 06/10/2024 NA 140 06/10/2024 K 4.0 06/10/2024 CO2 29 06/10/2024 CL 103 06/10/2024 BUN 20 06/10/2024 CREATININE 0.92 06/10/2024 Lab Results Component Value Date NA 140 06/10/2024 K 4.0 06/10/2024 CL 103 06/10/2024 CO2 29 06/10/2024 BUN 20 06/10/2024 CREATININE 0.92 06/10/2024 GLUCOSE 106 06/10/2024 CALCIUM 9.5 06/10/2024 PROT 7.9 06/10/2024 BILITOT 0. (more content not included)... [facility] 12 Lead EKGon 12-21-2024 12 Lead EKG [facility] Cardiovascular Services [address] [place] [address] 12 Lead EKG 12/21/24 1025 MR#: [id number] Acct: [id number] Name: LUIS ESPINO Rep #: [id number] : 1960 64 From: Ganga Willams MD Attending Dr: Dr. Mart Atkinson MD Status: PRE I N Ordering Dr: Mart Atkinson MD Date: 12/21/24 Location: [facility] Sex: M C Admitted: Test Reason : PREOP Blood Pressure : */* mmHG Vent. Rate : 56 BPM Atrial Rate : 56 BPM P-R Int : 180 ms QRS Dur : 102 ms QT Int : 438 ms P-R-T Axes : 44 -52 41 degrees QTcB Int : 422 ms Sinus bradycardia with sinus arrhythmia Left anterior fascicular block Abnormal ECG Confirmed by Ganga Willams ([id number]), assignment desk editor BRICE MEDEROS ([id number]) on 12/22/2024 1:43:45 PM Referred By: Mart Atkinson Confirmed By: Ganga Willams 12/22/24 1953 Date Ganga Willams MD CC: Dr. Mart Atkinson MD; RACHEL RANGEL Signed [facility] Basic Metabolic Profile (BMP )on 12-21-2024 BUN/CRE 13.6 RATIO Normal 10-20 [facility] Comment on above: Performed By: #### L 500.2500, BTSPAT, L501.9520, L100.0100 #### [facility] Laboratory [address] [place], [address] Calcium [Mass/Vol] 9.5 mg/dL Normal 7.6-11.0 [facility] Comment on above: Performed By: #### L 500.2500, BTSPAT, L501.9520, L100.0100 #### [facility] Laboratory [address] [place], [address] Chloride [Moles/Vol] 104 mmol/L Normal 98-108 [facility] Comment on above: Performed By: #### L 500.2500, BTSPAT, L501.9520, L100.0100 #### [facility] Laboratory [address] [place], [address] CO2 [Moles/Vol] 26.4 mmol/L Normal 21.0-32.0 [facility] Comment on above: Performed By: #### L 500.2500, BTSPAT, L501.9520, L100.0100 #### [facility] Laboratory [address] [place], [address] Creatinine [Mass/Vol] 0.83 mg/dL Normal 0.70-1.20 [facility] Comment on above: Performed By: #### L 500.2500, BTSPAT, L501.9520, L100.0100 #### [facility] Laboratory [address] [place], [address] GAP 11 Normal 5-15 [facility] Comment on above: Performed By: #### L 500.2500, BTSPAT, L501.9520, L100.0100 #### [facility] Laboratory [address] [place], [address] GFR/1.73 sq M.predicted among non-blacks MDRD (S/P/Bld) [Vol rate/Area] 97 mL/min/{1.73_m2} Normal >60 [facility] Comment on above: Result Comment: mL/m in/1.73m2 CKD-EPI Creatinine Equation (2020) Performed By: #### L 500.2500, BTSPAT, L501.9520, L100.0100 #### [facility] Laboratory [address] [place], [address] Glucose [Mass/Vol] 95 mg/dL Normal 70-99 [facility] Comment on above: Performed By: #### L 500.2500, BTSPAT, L501.9520, L100.0100 #### [facility] Laboratory [address] [place], [address] Potassium [Moles/Vol] 4.3 mmol/L Normal 3.3-5.1 [facility] Comment on above: Performed By: #### L 500.2500, BTSPAT, L501.9520, L100.0100 #### [facility] [address] [place], [address] Sodium [Moles/Vol] 141 mmol/L Normal 133-145 [facility] Comment on above: Performed By: #### L 500.2500, BTSPAT, L501.9520, L100.0100 #### [facility] Laboratory [address] [place], [address] Urea nitrogen [Mass/Vol] 11 mg/dL Normal 4-19 [facility] Comment on above: Performed By: #### L 500.2500, BTSPAT, L501.9520, L100.0100 #### [facility] Laboratory [address] [place], [address] CBC W/Diff, Automatedon 07-2 Absolute Lymph 1.81 X10 3/uL Normal 0.83-4.51 [facility] Comment on above: Performed By: #### L 500.2500, BTSPAT, L501.9520, L100.0100 #### [facility] Laboratory [address] [place], [address] Absolute Neut 2.6 X10 3/uL Normal 2.0-7.7 [facility] Comment on above: Performed By: #### L 500.2500, BTSPAT, L501.9520, L100.0100 #### [facility] [address] [place], [address] Basophils/100 WBC (Bld) 1.2 % High 0-1 [facility] Comment on above: Performed By: #### L 500.2500, BTSPAT, L501.9520, L100.0100 #### [facility] [address] [place], [address] Eosinophils/100 WBC (Bld) 8.9 % High 0-5 [facility] Comment on above: Performed By: #### L 500.2500, BTSPAT, L501.9520, L100.0100 #### [facility] Laboratory [address] [place], [address] Erythrocyte distribution width (RBC) [Ratio] 13.6 % Normal 11.6-14.6 [facility] Comment on above: Performed By: #### L 500.2500, BTSPAT, L501.9520, L100.0100 #### [facility] [address] [place], [address] Hematocrit (Bld) [Volume fraction] 50.4 % Normal 40-54 [facility] Comment on above: Performed By: #### L 500.2500, BTSPAT, L501.9520, L100.0100 #### [facility] [address] [place], [address] Hemoglobin (Bld) [Mass/Vol] 17.2 g/dL High 13.0-16.5 [facility] Comment on above: Performed By: #### L 500.2500, BTSPAT, L501.9520, L100.0100 #### [facility] [address] [place], [address] IG% 0.200 Normal 0.0-0.9 [facility] Comment on above: Result Comment: IG% - Immature Granulocytes (promyelocytes, myelocytes and metamyelocytes) > 1% indicates that a LEFT SHIFT is Present. Performed By: #### L 500.2500, BTSPAT, L501.9520, L100.0100 #### [facility] [address] [place], [address] Lymphocytes/100 WBC (Bld) 32.3 % Normal 19-41 [facility] Comment on above: Performed By: #### L 500.2500, BTSPAT, L501.9520, L100.0100 #### [facility] [address] [place], [address] MCH (RBC) [Entitic mass] 32.6 pg High 27.0-32.0 [facility] Comment on above: Performed By: #### L 500.2500, BTSPAT, L501.9520, L100.0100 #### [facility] [address] [place], [address] MCHC (RBC) [Mass/Vol] 34.1 g/dL Normal 32-36 [facility] Comment on above: Performed By: #### L 500.2500, BTSPAT, L501.9520, L100.0100 #### [facility] Laboratory [address] [place], [address] MCV (RBC) [Entitic vol] 95.6 fL High 80-94 [facility] Comment on above: Performed By: #### L 500.2500, BTSPAT, L501.9520, L100.0100 #### [facility] [address] [place], [address] Monocytes/100 WBC (Bld) 10.9 % High 0-10 [facility] Comment on above: Performed By: #### L 500.2500, BTSPAT, L501.9520, L100.0100 #### [facility] [address] [place], [address] Neutrophils/100 WBC (Bld) 46.5 % Low 47-70 [facility] Comment on above: Performed By: #### L 500.2500, BTSPAT, L501.9520, L100.0100 #### [facility] [address] [place], [address] Nucleated RBC (Bld) [#/Vol] 0 10*3/uL Normal 0-5 [facility] Comment on above: Performed By: #### L 500.2500, BTSPAT, L501.9520, L100.0100 #### [facility] [address] [place], [address] Platelet mean volume (Bld) [Entitic vol] 10.1 fL Normal 6.2-12.0 [facility] Comment on above: Performed By: #### L 500.2500, BTSPAT, L501.9520, L100.0100 #### [facility] Laboratory [address] [place], [address] Platelets (Bld) [#/Vol] 200 10*3/uL Normal 150-450 [facility] Comment on above: Performed By: #### L 500.2500, BTSPAT, L501.9520, L100.0100 #### [facility] Laboratory [address] [place], [address] RBC (Bld) [#/Vol] 5.27 10*6/uL Normal 4.6-6.2 [facility] Comment on above: Performed By: #### L 500.2500, BTSPAT, L501.9520, L100.0100 #### [facility] Laboratory [address] [place], [address] RDW SD 48.2 fl High 35.1-43.9 [facility] Comment on above: Performed By: #### L 500.2500, BTSPAT, L501.9520, L100.0100 #### [facility] Laboratory [address] [place], [address] WBC (Bld) [#/Vol] 5.6 10*3/uL Normal 4.4-11.0 [facility] Comment on above: Performed By: #### L 500.2500, BTSPAT, L501.9520, L100.0100 #### [facility] Laboratory [address] [place], [address] MR/Pam 12-21-2024 MR/PAT.[facility] Medical Records Department [address] [place] [address] PAT - Anesthesia 12/21/24 1607 MR#: [id number] Acct: [id number] Name: LUIS ESPINO Rep #: [id number] : 1960 64 From: Zachary Lyman MD PCP: RACHEL RANGEL Status:PRE IN Y Race: C Location: [facility] Pre-Assessment Diagnosis/Proposed Procedure Planned Operative Procedure(s): T CAR Anesthesia History 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 When Was Last Pacemaker Check QUESTION #4 FULL TEXT: You/Your Family Experience fever (hyperthermia) with Anesthesia Last Oral Intake Last Oral intake: Last Oral Intake NPO since Meds taken in AM with sips of water? 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 Female No 12/14/24 14:00 HX of Motion Sickness No 12/14/24 14:00 HX of N/V After Surgery No 12/14/24 14:00 Non-Smoker Yes 12/14/24 14:00 Duration of Surgery greater No 12/14/24 14:00 than 60 minutes Number of Risk Factors 1 12/14/24 14:00 PONV Score Low Risk 12/14/24 14:00 Respiratory Assessment Respiratory Assessment - construction supervisor/carpenter: Respiratory Tract Infection Hx - construction supervisor/carpenter Hx Respiratory Tract Infection No 12/14/24 14:00 STOP Sleep Apnea STOP Sleep Apnea - construction supervisor/carpenter: STOP Sleep Apnea - construction supervisor/carpenter Hx Hypertension Yes 12/14/24 14:00 Hx Sleep Apnea No 12/14/24 14:00 CPAP BIPAP Do you snore loudly (louder No 12/14/24 14:00 than talking or can be heard Do you often feel tired/ No 12/14/24 14:00 fatigued/ sleepy during daytime? Has anyone observed you stop No 12/14/24 14:00 breathing during sleep? STOP Results Negative 12/14/24 14:00 QUESTION #5 FULL TEXT : Do you snore loudly (louder than talking or can be heard through closed doors)? 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 Specify any problems Hx of Preganancy in last 3 N/A 12/14/24 14:00 Months Nurse Filling Out Transfusion [email or web address] 12/14/24 14:00 Questions: Date: 12/14/24 12/14/24 14:00 Time: 14:00 12/14/24 14:00 Patient unable to answer at this time (ie. 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: /Reproductive Hx- construction supervisor/carpenter Hx Now Gestational Age (in weeks): EDC: Hx Hx Para Hx Section SAB PFSH Medical History (Updated 12/14/24 @ 14:05 by Patrick Magaña) Cardiology follow-up encounter Wears glasses Alcohol use Thyroid disease Restless legs syndrome (RLS) Stroke/cerebrovascular accident Former smoker Carotid artery stenosis Acute right arterial ischemic stroke, middle cerebral artery (MCA) Hypertension Hypothyroid Hyperlipidemia Diabetes mellitus Home Medications ???Medication ???Instructions ???Recorded ???Last Taken ???Type aspirin 81 mg tablet,delayed 81 mg PO QDAY 08/05/24 Unknown His tory release (Adult Aspirin Regimen) atorvastatin 80 mg tablet 80 mg PO QDAY 08/05/24 Unknown His tory clopidogrel 75 mg tablet 75 mg PO QDAY 08/05/24 Unknown His tory hydrochlorothiazide 25 mg tablet 25 mg PO QDAY 08/05/24 Unknown His tory levothyroxine 75 mcg capsule 225 mcg PO QDAY 08/05/24 Unknown H istory metformin 1,000 mg tablet 1,000 mg PO BIDWMEAL 08/05/24 Unkn own History Allergy/AdvReac Type Severity Reaction Status Date / Time duloxetine Allergy Nausea Verified 12/14/24 13:58 Penicillins Allergy R (more content not included)... Normal [facility] Thyroid Stim Hormone (TSH)on 12-21-2024 TSH 3.040 uIU/mL Normal 0.300-4.200 [facility] Comment on above: Performed By: #### L 500.2500, BTSPAT, L501.9520, L100.0100 #### [facility] Laboratory [address] [place], [place], [id number] Type AND Screen - PAT ONLYon 12-21-2024 Ab SCREEN GEL Negative Normal [facility] Comment on above: Order Comment: Surge ry Date: 12/28/24 Reason for Laboratory Test SURGERY [id number] No N N S TCAR Performed By: #### L 500.2500, BTSPAT, L501.9520, L100.0100 #### [facility] Laboratory [place], [address] CNOVon 12-09-2024 [facility] ([id number]) 1960 M Date Time Provider Department 12/09/24 1:20 PM ALLIE GRANDE [facility] During your visit today, we recorded the following information about you: Temperature Pulse Respiration Blood pressure 98.2 degrees 75/minute 18/minute 120/74 Weight Height 116.1 kg 1.791 m Allie Grande PA-C 12/09/2024 1:23 PM Signed Immunizations are up to date. PAST MEDICAL HISTORY Diagnosis Date Depression Diabetes (HCC) Hyperlipidemia Hypertension Hypothyroidism Stroke (HCC) Medications: aspirin 81 mg chewable tablet Take 81 mg by mouth once daily. levothyroxine (SYNTHROID) 150 mcg tablet Take 150 mcg by mouth daily before breakfast. sertraline (ZOLOFT) 100 mg tablet Take 150 mg by mouth once daily. hydroCHLOROthiazide (HYDRODIURIL, ESIDRIX) 25 mg tablet Take 25 mg by mouth once daily. clopidogrel (PLAVIX) 75 mg tablet Take 75 mg by mouth once daily. amLODIPine (NORVASC) 5 mg tablet Take 5 mg by mouth once daily. atorvastatin (LIPITOR) 80 mg tablet Take 80 mg by mouth once daily. metformin HCl (METFORMIN ORAL) Take by mouth. GLYBURIDE ORAL Take by mouth. doxycycline hyclate (VIBRAMYCIN) 100 mg capsule Take 2 capsules by mouth once daily for 1 day. GABAPENTIN ORAL Take by mouth. (Patient not taking: Reported on 12/09/2024) PAST SURGICAL HISTORY Procedure Laterality Date BYP OTH/THN VEIN COMMON-IPSILATERAL CAROTID Carotid Endarectomy Social History Tobacco Use Smoking status: Former Current packs/day: 0.00 Types: Cigarettes Quit date: 06/2017 Years since quittin.5 Smokeless tobacco: Never Substance Use Topics Alcohol use: Yes Comment: rare Drug use: Never Vital Signs: BP 120/74 Pulse 75 Temp 36.8 ?C (98.2 ?F) (Oral) Resp 18 Ht 179.1 cm (5' 10.5) Wt 116.1 kg (255 lb 15.3 oz) SpO2 96% BMI 36.21 kg/m? The patient is a 64-year-old male presenting for a tick bite on the right posterior thigh. Tick Bite: - Noticed an embedded tick on the right posterior thigh approximately one hour ago. - Denies fever, nausea, emesis, or myalgias. - Frequently works outside, often near wooded areas. - History of a tick bite on the chest two years ago, which developed a bullseye rash and took a month to resolve. Constitutional: (-) fever Gastrointestinal: (-) nausea, (-) vomiting Musculoskeletal: (-) myalgia No Cp, Sob. Physical Exam: General: Vitals noted, no distress. Afebrile. Age-appropriate. Interactive. Well-hydrated. Nontoxic. Cardiac: Regular, rate, rhythm, no murmur. Pulmonary: Lungs clear bilaterally with good aeration. No adventitious breath sounds. Extremities: No peripheral edema. Neurovascularly intact throughout. Skin: Tick embedded in right posterior thigh, no erythema migrans, hematoma, or cellulitis. Is blanchable. No evidence of secondary infection. No petechiae or purpura. No mucous membrane lesions. No Bullseye lesion. Neuro: No focal neurologic deficits. Again, well-hydrated and nontoxic in appearance. 1. Tick bite of right thigh, initial encounter (S70.606A) - Tick embedded in the right posterior thigh, noticed approximately an hour ago; no signs of erythema migrans, hemapsis, or cellulitis. - Tick removed with tweezers. - Administered a prophylactic one-time dose of doxycycline to prevent Lyme disease. - Advised to monitor for signs of infection or Lyme disease, including redness, swelling, pus, bullseye lesion, body aches, fever, headache, and joint aches. - The tick was removed from your right posterior thigh with tweezers. - You received a one-time dose of doxycycline to help prevent Lyme disease. - Check the bite site for increasing redness, swelling, pus, or a ?bullseye? (ring-shaped) rash. - Monitor for fever, headache, body aches, or joint pain. - If you notice any of these signs or develop a bullseye rash, call our office to discuss further treatment. Recording using [employer] software for draft documentation of the visit was discussed with the patient/authorized auto service representative; all questions welcomed and answered. Patient/authorized auto service representative agreed to proceed Differential Diagnosis: Is extensive but includes dermatitis, tinea, molluscum, cellulitis, viral exanthem, Kawasaki's disease, scarlatina, erythema multiforme, Chinchilla-Tristan syndrome, TEN, staphylococcal scalded skin syndrome, etc. Plan: Homegoing. I discussed the differential, results and discharge plan with the patient and/or family/friend/caregiver if present. I emphasized the importance of follow-up with the physician I referred them to in the timeframe recommended. Additional verbal discharge instructions were also given and discussed with the patient to supplement those generated by the EMR. We also discussed medications that were prescribed (if any) including common side effects and inte (more content not included)... Normal [facility] MR/BMS.Ryley 11-18-2024 MR/BMSJadielMilla [facility] Vascular Surgery [address] [place] [address] OFFICE VISIT Date of Service: 11/18/24 MR#: [id number] Acct: [id number] Name: LUIS ESPINO Rep #: [id number] : 1960 Provider: MAIKEL Gonzalez Age/Sex: 64/M Location: [facility] Status: Signed Intake Vital Signs 11/18/24 11:49 Weight: 257 lb BP 149/78 H Blood Pressure Location Lt brachial Position Sitting Respiration 16 Pulse 70 Pulse Source Monitor Temp 98 F Temp Source Temporal Pulse Oximetry (%) 97 Oxygen Delivery Method room air Intake Visit Reasons: Discuss TSH levels Is patient in pain?: No Allergies duloxetine Allergy (Verified 11/18/24 11:50) Nausea Penicillins Allergy (Verified 11/18/24 11:50) Rash Medications ???Medication ???Instructions ???Recorded ???Confirmed ???Type aspirin 81 mg tablet,delayed 81 mg PO QDAY 08/05/24 11/18/24 Hi story release (Adult Aspirin Regimen) atorvastatin 80 mg tablet 80 mg PO QDAY 08/05/24 11/18/24 Hi story clopidogrel 75 mg tablet 75 mg PO QDAY 08/05/24 11/18/24 Hi story hydrochlorothiazide 25 mg tablet 25 mg PO QDAY 08/05/24 11/18/24 Hi story levothyroxine 75 mcg capsule 225 mcg PO QDAY 08/05/24 11/18/24 History metformin 1,000 mg tablet 1,000 mg PO BIDWMEAL 08/05/2410/31 History Have you fallen in the past year?: No PFSH Medical History Wears glasses Alcohol use Thyroid disease Restless legs syndrome (RLS) Stroke/cerebrovascular accident Former smoker Carotid artery stenosis Acute right arterial ischemic stroke, middle cerebral artery (MCA) Hypertension Hypothyroid Hyperlipidemia Diabetes mellitus Surgical History H/O carotid endarterectomy ( 06/16/17) History of cholecystectomy ( 1992) Family History Mother Breast cancer Father Alcohol abuse Social History Smoking Status: Former smoker how long ago did patient quit smokin years HPI HPI HPI: LUIS ESPINO, is a 64 M who presents to the office today for preoperative follow-up. He had been scheduled for L TCAR 10/19/2024 however PAT evaluation revealed TSH 98.2 so surgery was cancelled to allow for improved management of his hypothyroidism. He does have known hypothyroidism and he reports that he actually was not taking his levothyroxine consistently or as instructed prior to this testing. He has restarted this medication daily as prescribed and directed; he reports that when his PCP checked his TSH a couple weeks ago it was around 6. He otherwise reports no significant interval changes to his medical history. He denies any edema, CP, SOB, palpitations, or other concerns. He is eager to proceed with rescheduling his carotid surgery. ROS General General: No weight change, appetite, fatigue, colon cancer, breast cancer or weakness HEENT HEENT: No difficulty swallowing, eye injury, eye surgery, swollen glands or hoarseness Endo Endocrine: Yes thyroid disease, diabetes mellitus, heat intolerance and cold intolerance; No thyroid cancer or Hair loss Skin Skin: No rash or changing moles Musc Musculoskeletal: Yes joint pain; No back problems, arthritis, rheumatoid arthritis or gout Cardio Cardiovascular: Yes high blood pressure; No murmur, pacemaker, heart disease, atrial fibrillation, heart attack, heart stent, palpitations, shortness of breath with exertion or chest pain Psych Psychiatric: Yes depression and anxiety; No hearing voices Resp Respiratory: No shortness of breath, No sleep apnea, No cough, No COPD, No asthma, No emphysema and No wheezing Gastro Gastrointestinal: No abdominal pain, No nausea or vomiting, No diarrhea, No constipation, No blood in stool, No acid reflux, No hemorrhoids, No ulcers, No gallbladder problem and No black,tarry stools Robby Hematologic: Yes blood thinners, No blood disorders, No bleeding, No anemia and No blood clots Neuro Neurologic: No system reviewed and no additional complaints, except as documented, No as per HPI, No abnormal gait, No abnormal hearing, No abnormal movements, No abnormal speech, No behavioral changes, No burning sensations, No confusion, No convulsions, No disequilibrium, No dizziness, No localized weakness, No frequent falls, No headache(s), No lack of coordination, No loss of vision, No memory loss, No numbness, No other visual disturbances, No radicular pain, Yes restless legs, No sensory deficit, No syncope, No tingling, No tremor(s), No weakness and No other Exam Const General: cooperative, healthy appearing, comfortable, no acute distress and well developed Nutritional Appearanc (more content not included)... Normal [facility] TSH DL <= 0.005 mIU/L QnOrde red By: Zuly Ruggiero on 11-18-2024 TSH Qn 3.700 uIU/mL 0.300-4.200 [facility] Thyroid Stim Hormone (TSH)on 11-18-2024 TSH 3.700 uIU/mL Normal 0.300-4.200 [facility] Comment on above: Performed By: #### L 827.2706 #### [facility] Laboratory [address] [place], [address] Progress Noteon 11-05-2024 Progress Note Chronic, stable. Monitor off medication. Planted a garden which brings him leslie. Normal [facility] Progress Note Chronic, uncontrolle d. Last LDL 121. Still not regularly taking atorvastatin 80mg daily. Sites stress of caring for and her elderly uncle. Plan to repeat lipid panel once taking atorvastatin 80mg daily for 2-4 weeks. Has been at goal of LDL<70 on this dose in past. Normal [facility] Progress Note Chronic, controlled. Due for 6 month follow up HgA1c. Very mild proteinuria on last screening- would repeat to confirm. Plan for repeat urine at next visit. Continue metformin and healthy diet. Has been doing time restricted eating. Eats 12-8pm. No lows. Normal [facility] Progress Note Chronic, uncontrolle d. Outside TSH not available to me but pt reports was elevated so L CEA cancelled. Since then has been taking 225mcg every morning on empty stomach w/other pills. No MVI or tums. Repeat TSH today. Was uncontrolled due to infrequently taking levothyhroxine. On wt appropriate dose. Normal [facility] Progress Note Chronic, stable. Hx R CEA and R MCA atheroembolic stroke 2018. Since last visit has re-established w/Dr. Atkinson and was planned for L CEA given progression of stenosis to 70-79% but procedure cancelled due to uncontrolled hypothryoid. Continue high intensity statin and DAPT. Normal [facility] Progress Note Chronic, stable. BP at goal today. Switched from [facility] to [facility] since last visit. New Rx sent for amlodipien 5mg daily and hydrochlorothiazide 25 mg daily. 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 Not related to DM2. Stopped effexor since last visit. Tolerating symptoms and does not desire medication at this time. Normal [facility] HEMOGLOBIN A1Con 11-04-2024 Glucose [Mass/Vol] 120 mg/dL [facility] Comment on above: Result Comment: ORDE R COMMENTS: HbA1c values of 5.7-6.4 percent indicate an increased risk for developing diabetes mellitus. HbA1c values greater than or equal to 6.5 percent are diagnostic of diabetes mellitus. For diagnosis of diabetes in individuals without unequivocal hyperglycemia, results should be confirmed by repeat testing. Performed By: #### L AB90 #### Park Manager: LIZ SQUIRES ([phone]) [facility] ([facility]) [address] [place] [address] HEMOGLOBIN A1C 5.8 %HbA1C High <5.7 [facility] Comment on above: Result Comment: Norm al less than 5.7% Prediabetes 5.7% to 6.4% Diabetes 6.5% or higher --HgbA1C levels may not be accurate in patients who have renal disease, received recent blood transfusions, are anemic, or who have dyshemoglobinemia. Performed By: #### L AB90 #### Park Manager: LIZ SQUIRES ([phone]) [facility] ([facility]) [address] [place] [address] Laboratory - Chemistry and C hemistry - challengeon 11-04-2024 Average glucose Estimated from glycated hemoglobin (Bld) [Mass/Vol] 120 mg/dL [facility] TSH Qn 6.1 m[IU]/L High [facility] Laboratory - Hematology and Cell countson 11-04-2024 HbA1c (Bld) [Mass fraction] 5.8 % High [facility] Comment on above: Normal less than 5.7 % Prediabetes 5.7% to 6.4% Diabetes 6.5% or higher --HgbA1C levels may not be accurate in patients who have renal disease, received recent blood transfusions, are anemic, or who have dyshemoglobinemia. No Panel Informationon 11-04 Interpretation and review of laboratory results Abnormal [facility] HbA1c values of 5.7- 6.4 percent indicate an increased risk for developing diabetes mellitus. HbA1c values greater than or equal to 6.5 percent are diagnostic of diabetes mellitus. For diagnosis of diabetes in individuals without unequivocal hyperglycemia, results should be confirmed by repeat testing. [facility] Office Visiton 11-04-2024 Follow-up visit [id number] Luis Espino 1960 M Date Provider Department [facility] 11/04/2024 RACHEL OVALLE [facility] Family History Problem Relation Age of Onset Breast cancer Mother Alcohol abuse Father Other Mother Family Status - Relation Status Age at Mother 78 Notes: aplastic anemia Father 42 Notes: Cirrhosis Sister Alive Sister Alive Level of Service:19008 [place] OFFICE/OUTPATIENT ESTABLISHED MOD MDM 30 MIN Reason for Visit and Comments: Hypothyroidism [143] Normal [facility] Progress Noteon 11-04-2024 Progress Note [facility] - [address] [facility] [address] Dept: [phone] Dept Loc: [phone] 11/04/2024 Visit type: Routine Follow up visit Reason for Visit: Hypothyroidism ASSESSMENT/PLAN 1. Type 2 diabetes mellitus with hyperglycemia, without long-term current use of insulin (HCC) Assessment & Plan: Chronic, controlled. Due for 6 month follow up HgA1c. Very mild proteinuria on last screening- would repeat to confirm. Plan for repeat urine at next visit. Continue metformin and healthy diet. Has been doing time restricted eating. Eats 12-8pm. No lows. Orders: - atorvastatin (Lipitor) 80 MG tablet; Take 1 tablet (80 mg) by mouth every evening., Starting Linda 11/04/2024, Normal - metFORMIN XR (Glucophage-XR) 500 MG 24 hr tablet; Take 2 tablets (1,000 mg) by mouth 2 times daily (with meals)., Starting Linda 11/04/2024, Normal - Hemoglobin A1c 2. Encounter for colorectal cancer screening - Cologuard? colon cancer screening 3. Mixed hyperlipidemia Assessment & Plan: Chronic, uncontrolled. Last LDL 121. Still not regularly taking atorvastatin 80mg daily. Sites stress of caring for and her elderly uncle. Plan to repeat lipid panel once taking atorvastatin 80mg daily for 2-4 weeks. Has been at goal of LDL<70 on this dose in past. Orders: - atorvastatin (Lipitor) 80 MG tablet; Take 1 tablet (80 mg) by mouth every evening., Starting Linda 11/04/2024, Normal 4. History of ischemic right MCA stroke Assessment & Plan: Chronic, stable. Residual L UE neuropathy. On secondary prevention with DAPT and high intensity status. S/P R CEA. Needs L CEA due to progression stenosis. Orders: - atorvastatin (Lipitor) 80 MG tablet; Take 1 tablet (80 mg) by mouth every evening., Starting Linda 11/04/2024, Normal - clopidogrel (Plavix) 75 MG tablet; Take 1 tablet (75 mg) by mouth daily., Starting Linda 11/04/2024, Normal 5. Type 2 diabetes mellitus with diabetic neuropathy, without long-term current use of insulin ([facility]) 6. Primary hypertension Assessment & Plan: Chronic, stable. BP at goal today. Switched from [facility] to [facility] since last visit. New Rx sent for amlodipien 5mg daily and hydrochlorothiazide 25 mg daily. Orders: - amLODIPine (Norvasc) 5 MG tablet; Take 1 tablet (5 mg) by mouth daily., Starting [facility] 11/04/2024, Normal 7. Hypothyroidism, unspecified type Assessment & Plan: Chronic, uncontrolled. Outside TSH not available to me but pt reports was elevated so L CEA cancelled. Since then has been taking 225mcg every morning on empty stomach w/other pills. No MVI or tums. Repeat TSH today. Was uncontrolled due to infrequently taking levothyhroxine. On wt appropriate dose. Orders: - TSH - levothyroxine (Synthroid, Levoxyl) 75 MCG tablet; Take 3 tablets (225 mcg) by mouth daily., Starting [facility] 11/04/2024, Normal 8. 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 Not related to DM2. Stopped effexor since last visit. Tolerating symptoms and does not desire medication at this time. 9. Type 2 diabetes mellitus without complication, without long-term current use of insulin ([facility]) Assessment & Plan: Chronic, controlled. Due for 6 month follow up HgA1c. Very mild proteinuria on last screening- would repeat to confirm. Plan for repeat urine at next visit. Continue metformin and healthy diet. Has been doing time restricted eating. Eats 12-8pm. No lows. 10. Recurrent mild major depressive disorder with anxiety (HCC) Assessment & Plan: Chronic, stable. Monitor off medication. Planted a garden which brings him leslie. Follow up in about 3 months (around 02/04/2025) for AWV w/Josefa or Rosalba or me. Subjective Patient: Luis Espino is a 64 y.o. male HPI HLP- hasn't been taking atorvastatin regularly since last checked. Reviewed LDL above goal of <70 and recommendation for taking daily. Carotid Stenosis- no new neuro sx. Has residual L UE neuropathy from prior R MCA stroke. L CEA was scheduled but cancelled due to elevated TSH. Wasn't taking levothyroxine. Has been taking daily for 4 weeks. Check TSH today Mild Depression- doing ok. Stopped venlafaxine after last visit as doesn't really want to take meds. No SI. Planted a garden. Ongoing caregiver stress DM2- doing time restricted eating. Eats 12-8pm. No lows. No GI side effects. Taking metformin. Due for HgA1c today. Wt coming down- BMI is down to 35. From high of 43 in 2020. Colon Cancer screening- did not do cologuard. Received kit but got busy. Would like to complete colon cancer screening. Review of Systems Allergies[1] Current Medications[2] Medical History[3] Surgical History[4] Family History[5] Social History Tobacco Use Smoking status: Former Current packs/day: 0.00 Types: Cigarettes Quit date: 2017 Years since quittin.4 Smokeless tobacco: Never Substance U (more content not included)... Normal [facility] Progress Note MA time with patient : 3min, AG (initial vitals) Normal [facility] THYROID STIMULATING HORMONEo n 11-04-2024 THYROID STIMULATING HORMONE 6.10 uIU/mL High 0.35-4.94 [facility] Comment on above: Performed By: #### L AB129 ####Park Manager: LIZ SQUIRES ([phone])[facility] ([facility] TSH Qnon 11-04-2024 Interpretation and review of laboratory results Abnormal [facility] 36on 10-19-2024 36 Thanks- reviewed ryan rt. On wt appropriate dose of levothyroxine. Expect to be euthyroid w/consistent daily usage of levothyroxine. 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 When Was Last Pacemaker Check QUESTION #4 FULL TEXT: You/Your Family Experience fever (hyperthermia) with Anesthesia Last Oral Intake Last Oral intake: Last Oral Intake NPO since Meds taken in AM with sips of water? 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 Female No 10/05/24 15:10 HX of Motion Sickness No 10/05/24 15:10 HX of N/V After Surgery No 10/05/24 15:10 Non-Smoker Yes 10/05/24 15:10 Duration of Surgery greater No 10/05/24 15:10 than 60 minutes Number of Risk Factors 1 10/05/24 15:10 PONV Score Low Risk 10/05/24 15:10 Respiratory Assessment Respiratory Assessment - construction supervisor/carpenter: Respiratory Tract Infection Hx - construction supervisor/carpenter Hx Respiratory Tract Infection No 10/05/24 15:10 STOP Sleep Apnea STOP Sleep Apnea - construction supervisor/carpenter: STOP Sleep Apnea - construction supervisor/carpenter Hx Hypertension Yes 10/05/24 15:10 Hx Sleep Apnea No 10/05/24 15:10 CPAP BIPAP Do you snore loudly (louder No 10/05/24 15:10 than talking or can be heard Do you often feel tired/ No 10/05/24 15:10 fatigued/ sleepy during daytime? Has anyone observed you stop No 10/05/24 15:10 breathing during sleep? STOP Results Negative 10/05/24 15:10 QUESTION #5 FULL TEXT : Do you snore loudly (louder than talking or can be heard through closed doors)? 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 Tobacco Use Smoking Status Former smoker 10/05/24 15:10 Hx Tobacco Use No 10/05/24 15:10 Years Smoking Packs Smoked per Day Smoking Cessation Date was Yes - quit smoking within 15 10/05/24 15:10 within the last 15 years years Hx Smoking Cessation Date 06/02/09 10/05/24 15:10 Hx Smoking Cessation Counseling Hematologic Medial History Hematologic Hx - construction supervisor/carpenter: Hematologic Medical Hx - tester armature or fields Hx of Blood Transfusion No 10/05/24 15:10 Hx of Transfusion in last 3 No 10/05/24 15:10 Months Date of Last Transfusion (if within last 3 months) Ever experience any problems No 10/05/24 15:10 with transfusion(s)? Specify any problems Hx of Preganancy in last 3 N/A 10/05/24 15:10 Months Nurse Filling Out Transfusion [facility] 10/05/24 15:10 Questions: Date: 10/05/24 10/05/24 15:10 Time: 15:13 10/05/24 15:10 Patient unable to answer at this time (ie. 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: /Reproductive Hx- construction supervisor/carpenter Hx Now Gestational Age (in weeks): EDC: Hx Hx Para Hx Section SAB [facility] Medical History Wears glasses Alcohol use Thyroid disease Restless legs syndrome (RLS) Stroke/cerebrovascular accident Former smoker Carotid artery stenosis Acute right arterial ischemic stroke, middle cerebral artery (MCA) Hypertension Hypothyroid Hyperlipidemia Diabetes mellitus Home Medications ???Medication ???Instructions ???Recorded ???Last Taken ???Type aspirin 81 mg tablet,delayed 81 mg PO QDAY 08/05/24 Unknown His tory release (Adult Aspirin Regimen) atorvastatin 80 mg tablet 80 mg PO QDAY 08/05/24 Unknown His tory clopidogrel 75 mg tablet 75 mg PO QDAY 08/05/24 Unknown His tory hydrochlorothiazide 25 mg tablet 25 mg PO QDAY 08/05/24 Unknown His tory levothyroxine 75 mcg capsule 225 mcg PO QDAY 08/05/24 Unknown H istory metformin 1,000 mg tablet 1,000 mg PO BIDWMEAL 08/05/24 Unkn own History Allergy/AdvReac Type Severity Reaction Status Date / Time duloxetine Allergy Nausea Verified 09/20/24 10:18 Penic (more content not included)... Normal [facility] Basic Metabolic Profile (BMP )on 10-15-2024 BUN/CRE 14.0 RATIO Normal 10-20 [facility] Comment on above: Performed By: #### L 500.2500, L501.9520, L100.0500, L501.9985, BTSPAT ####[facility] [address] [place], [address] Calcium [Mass/Vol] 9.5 mg/dL Normal 7.6-11.0 [facility] Comment on above: Performed By: #### L 500.2500, L501.9520, L100.0500, L501.9985, BTSPAT ####[facility] [address] [place], [address] Chloride [Moles/Vol] 100 mmol/L Normal 98-108 [facility] Comment on above: Performed By: #### L 500.2500, L501.9520, L100.0500, L501.9985, BTSPAT ####[facility] [address] [place], [address] CO2 [Moles/Vol] 25.8 mmol/L Normal 21.0-32.0 [facility] Comment on above: Performed By: #### L 500.2500, L501.9520, L100.0500, L501.9985, BTSPAT ####[facility] [address] [place], [address] Creatinine [Mass/Vol] 1.16 mg/dL Normal 0.70-1.20 [facility] Comment on above: Performed By: #### L 500.2500, L501.9520, L100.0500, L501.9985, BTSPAT ####[facility] [address] [place], [address] GAP 12 Normal 5-15 [facility] Comment on above: Performed By: #### L 500.2500, L501.9520, L100.0500, L501.9985, BTSPAT ####[facility] [address] [place], [address] GFR/1.73 sq M.predicted among non-blacks MDRD (S/P/Bld) [Vol rate/Area] 70 mL/min/{1.73_m2} Normal >60 [facility] Comment on above: Result Comment: mL/m in/1.73m2 CKD-EPI Creatinine Equation (2020) Performed By: #### L 500.2500, L501.9520, L100.0500, L501.9985, BTSPAT ####[facility] [address] [place], [address] Glucose [Mass/Vol] 114 mg/dL High 70-99 [facility] Comment on above: Performed By: #### L 500.2500, L501.9520, L100.0500, L501.9985, BTSPAT ####[facility] [address] [place], [address] Potassium [Moles/Vol] 4.0 mmol/L Normal 3.3-5.1 [facility] Comment on above: Performed By: #### L 500.2500, L501.9520, L100.0500, L501.9985, BTSPAT ####[facility] [address] [place], [address] Sodium [Moles/Vol] 137 mmol/L Normal 133-145 [facility] Comment on above: Performed By: #### L 500.2500, L501.9520, L100.0500, L501.9985, BTSPAT ####[facility] [address] [place], [address] Urea nitrogen [Mass/Vol] 16 mg/dL Normal 4-19 [facility] Comment on above: Performed By: #### L 500.2500, L501.9520, L100.0500, L501.9985, BTSPAT ####[facility] [address] [place], [address] CBC-Complete Blood Cnt No Di ffon 10-15-2024 Erythrocyte distribution width (RBC) [Ratio] 14.2 % Normal 11.6-14.6 [facility] Comment on above: Performed By: #### L 500.2500, L501.9520, L100.0500, L501.9985, BTSPAT #### [facility] Laboratory [address] [place], [address] Hematocrit (Bld) [Volume fraction] 47.4 % Normal 40-54 [facility] Comment on above: Performed By: #### L 500.2500, L501.9520, L100.0500, L501.9985, BTSPAT #### [facility] [address] [place], [address] Hemoglobin (Bld) [Mass/Vol] 16.6 g/dL High 13.0-16.5 [facility] Comment on above: Performed By: #### L 500.2500, L501.9520, L100.0500, L501.9985, BTSPAT #### [facility] [address] [place], [address] MCH (RBC) [Entitic mass] 32.0 pg Normal 27.0-32.0 [facility] Comment on above: Performed By: #### L 500.2500, L501.9520, L100.0500, L501.9985, BTSPAT #### [facility] [address] [place], [address] MCHC (RBC) [Mass/Vol] 35.0 g/dL Normal 32-36 [facility] Comment on above: Performed By: #### L 500.2500, L501.9520, L100.0500, L501.9985, BTSPAT #### [facility] [address] [place], [address] MCV (RBC) [Entitic vol] 91.3 fL Normal 80-94 [facility] Comment on above: Performed By: #### L 500.2500, L501.9520, L100.0500, L501.9985, BTSPAT #### [facility] [address] [place], [address] Platelet mean volume (Bld) [Entitic vol] 10.6 fL Normal 6.2-12.0 [facility] Comment on above: Performed By: #### L 500.2500, L501.9520, L100.0500, L501.9985, BTSPAT #### [facility] [address] [place], [address] Platelets (Bld) [#/Vol] 215 10*3/uL Normal 150-450 [facility] Comment on above: Performed By: #### L 500.2500, L501.9520, L100.0500, L501.9985, BTSPAT #### [facility] [address] [place], [address] RBC (Bld) [#/Vol] 5.19 10*6/uL Normal 4.6-6.2 [facility] Comment on above: Performed By: #### L 500.2500, L501.9520, L100.0500, L501.9985, BTSPAT #### [facility] [address] [place], [address] RDW SD 47.8 fl High 35.1-43.9 [facility] Comment on above: Performed By: #### L 500.2500, L501.9520, L100.0500, L501.9985, BTSPAT #### [facility] [address] [place], [address] WBC (Bld) [#/Vol] 6.7 10*3/uL Normal 4.4-11.0 [facility] Comment on above: Performed By: #### L 500.2500, L501.9520, L100.0500, L501.9985, BTSPAT #### [facility] [address] [place], [address] Hemoglobin A1con 10-15-2024 HbA1c (Bld) [Mass fraction] 6.4 % High <=5.6 [facility] Comment on above: Result Comment: Norm al < 5.7 % Prediabetic 5.7 - 6.4 % Diabetic >or= 6.5 % Please note range changes. Performed By: #### L 500.2500, L501.9520, L100.0500, L501.9985, BTSPAT #### [facility] [address] [place], [address] Thyroid Stim Hormone (TSH)on 10-15-2024 TSH 98.200 uIU/mL High 0.300-4.200 [facility] Comment on above: Performed By: #### L 500.2500, L501.9520, L100.0500, L501.9985, BTSPAT ####[facility] [address] [place], [address] Type AND Screen - PAT ONLYon 10-15-2024 Ab SCREEN GEL Negative Normal [facility] Comment on above: Order Comment: Surge ry Date: 10/19/24Reason for Laboratory Test [id number]/ANNSCAROTID STENT Performed By: #### L 500.2500, L501.9520, L100.0500, L501.9985, BTSPAT ####[facility] [address] [place], [place], [address] MR/BMSJulisa 09-20-2024 MR/BMS.BVS [facility] Vascular Surgery [address] [place] [address] OFFICE VISIT Date of Service: 09/20/24 MR#: [id number] Acct: [id number] Name: LUIS ESPINO Rep #: [id number] : 1960 Provider: Dr. Mart Atkinson MD Age/Sex: 64/M Location: [facility] Status: Signed Intake Vital Signs 09/20/24 10:15 Weight: 263 lb BP 154/88 H Blood Pressure Location Lt brachial Position Sitting Pulse 58 L Pulse Source Monitor Temp 98 F Temp Source Temporal Pulse Oximetry (%) 98 Oxygen Delivery Method room air Intake Visit Reasons: Discuss CTA Intervention Is patient in pain?: No Allergies duloxetine Allergy (Verified 09/20/24 10:18) Nausea Penicillins Allergy (Verified 09/20/24 10:18) Rash Medications ???Medication ???Instructions ???Recorded ???Confirmed ???Type aspirin 81 mg tablet,delayed 81 mg PO QDAY 08/05/24 09/20/24 Hi story release (Adult Aspirin Regimen) atorvastatin 80 mg tablet 80 mg PO QDAY 08/05/24 09/20/24 Hi story clopidogrel 75 mg tablet 75 mg PO QDAY 08/05/24 09/20/24 Hi story hydrochlorothiazide 25 mg tablet 25 mg PO QDAY 08/05/24 09/20/24 Hi story levothyroxine 75 mcg capsule 225 mcg PO QDAY 08/05/24 09/20/24 History metformin 1,000 mg tablet 1,000 mg PO BIDWMEAL 08/05/2409/01 History Have you fallen in the past year?: No PFSH Medical History Carotid artery stenosis Acute right arterial ischemic stroke, middle cerebral artery (MCA) Hypertension Hypothyroid Hyperlipidemia Diabetes mellitus Surgical History H/O carotid endarterectomy ( 06/16/17) History of cholecystectomy ( 1992) Family History Mother Breast cancer Father Alcohol abuse Social History Smoking Status: Former smoker how long ago did patient quit smokin years HPI HPI HPI: LUIS ESPINO, is a 64 M who presents to the office today for evaluation of left ICA stenosis. I had previously performed right CEA about 7 years ago at [facility]. He has been followed with serial duplex since that time and recent testing in November 2023 revealed increasing velocities reaching ranges indicating treatment. He had a CTA also at [place] that showed 98% stenosis of left ICA. He denies numbness/weakness/visio n loss/speech difficulty. ROS General General: No weight change, appetite, fatigue, colon cancer, breast cancer or weakness HEENT HEENT: No difficulty swallowing, eye injury, eye surgery, swollen glands or hoarseness Endo Endocrine: Yes thyroid disease and diabetes mellitus; No thyroid cancer, Hair loss, heat intolerance or cold intolerance Skin Skin: No rash or changing moles Musc Musculoskeletal: No back problems, arthritis, rheumatoid arthritis, gout or joint pain Cardio Cardiovascular: Yes high blood pressure; No murmur, pacemaker, heart disease, atrial fibrillation, heart attack, heart stent, palpitations, shortness of breath with exertion or chest pain Psych Psychiatric: Yes depression and anxiety; No hearing voices Resp Respiratory: No shortness of breath, No sleep apnea, No cough, No COPD, No asthma, No emphysema and No wheezing Gastro Gastrointestinal: No abdominal pain, No nausea or vomiting, No diarrhea, Yes constipation (occasional), No blood in stool, No acid reflux, No hemorrhoids, No ulcers, Yes gallbladder problem and No black,tarry stools Robby Hematologic: Yes blood thinners, No blood disorders, No bleeding, No anemia and No blood clots Neuro Neurologic: No system reviewed and no additional complaints, except as documented, No as per HPI, No abnormal gait, No abnormal hearing, No abnormal movements, No abnormal speech, No behavioral changes, No burning sensations, No confusion, No convulsions, No disequilibrium, No dizziness, No localized weakness, No frequent falls, No headache(s), No lack of coordination, No loss of vision, No memory loss, No numbness, No other visual disturbances, No radicular pain, Yes restless legs, No sensory deficit, No syncope, No tingling, No tremor(s), No weakness and No other Exam Const General: cooperative, healthy appearing, comfortable, no acute distress and well developed Nutritional Appearance: well nourished Orientation: alert, awake and oriented x3 HENMT Head: normocephalic and atraumatic Ears: hearing grossly normal bilaterally Nose: external nose normal Eyes General: appearance normal, both eyes and all related structures EOM: EOM intact bilaterally Neck Neck: normal visual inspection, full ROM, no lymphadenopathy and trachea midline Thyroid: thyroid normal Lymphatic: no lymphadenopat (more content not included)... Normal [facility] CT NECK ANGIO W AND WO IV CO NTRASTon 09-14-2024 CT NECK ANGIO W AND WO IV CONTRAST Patient Name: LUIS ESPINO : 1960 Exam Date/Time: 09/14/2024 11:28 Procedure: CT NECK ANGIO W AND WO IV CONTRAST Ordering Provider: RUGGIERO ALLISON Reason For Exam: Carotid artery stenosis CTA neck with and without contrast HISTORY: Carotid stenosis Technique: 1 mm axial images through the neck with and without intravenous contrast, 3-D rendering performed by me on an independent workstation Dose reduction was employed with automated exposure control. A 98 percent stenosis just after the origin of the left internal carotid artery measured using the NASCET criteria. Previous right carotid endarterectomy without stenosis. The vertebral arteries are widely patent. IMPRESSION: A 98 percent stenosis just after the origin of the left internal carotid artery. Report Dictated on Electronically Signed By: Angelo Chicas MD Electronically Signed Date/Time: 09/14/2024 4:08 PM EDT [facility] CTA Neck vessels WO and W co ntrast Rocio 09-14-2024 A 98 percent stenosis just after the origin of the left internal carotid artery. Report Dictated on Electronically Signed By: Angelo Chicas MD Electronically Signed Date/Time: 09/14/2024 4:08 PM EDT [facility] Patient Name: LUIS REED : 1960 Exam Date/Time: 09/14/2024 11:28 Procedure: CT NECK ANGIO W AND WO IV CONTRAST Ordering Provider: RUGGIERO ALLISON Reason For Exam: Carotid artery stenosis CTA neck with and without contrast HISTORY: Carotid stenosis Technique: 1 mm axial images through the neck with and without intravenous contrast, 3-D rendering performed by me on an independent workstation Dose reduction was employed with automated exposure control. A 98 percent stenosis just after the origin of the left internal carotid artery measured using the NASCET criteria. Previous right carotid endarterectomy without stenosis. The vertebral arteries are widely patent. [facility] Angelo Chicas MD - 09/14/2024 Patient Name: LUIS ESPINO : 1960 Exam Date/Time: 09/14/2024 11:28 Procedure: CT NECK ANGIO W AND WO IV CONTRAST Ordering Provider: RUGGIERO ALLISON Reason For Exam: Carotid artery stenosis CTA neck with and without contrast HISTORY: Carotid stenosis Technique: 1 mm axial images through the neck with and without intravenous contrast, 3-D rendering performed by me on an independent workstation Dose reduction was employed with automated exposure control. A 98 percent stenosis just after the origin of the left internal carotid artery measured using the NASCET criteria. Previous right carotid endarterectomy without stenosis. The vertebral arteries are widely patent. IMPRESSION: A 98 percent stenosis just after the origin of the left internal carotid artery. Report Dictated on Electronically Signed By: Angelo Chicas MD Electronically Signed Date/Time: 09/14/2024 4:08 PM EDT [facility] Study observation (narrative) [facility] CTA Neck vessels WO and W co ntrast IVOrdered By: Angelo Chicas on 09-14-2024 [facility] Work Phone: Progress Noteon 08-17-2024 Progress Note Reached patient toda y on 3rd attempt of calling back. Still hasn't decided if he wants to proceed with left CEA. Will call him back in 2 weeks. Aubrie Palmer MD Vascular Surgery 08/17/2024 11:38 AM Normal [facility] MR/BMSJadielBVDominik 08-06-2024 MR/BMS.BVS [facility] Vascular Surgery [address] [place], [place] [address] OFFICE VISIT Date of Service: 08/06/24 MR#: [id number] Acct: [id number] Name: LUIS ESPINO Rep #: [id number] : 1960 Provider: MAIKEL Gonzalez Age/Sex: 64/M Location: BMS.BVS Status: Signed Intake Vital Signs 08/06/24 11:05 Weight: 265 lb BP 160/78 H Blood Pressure Location Rt brachial Position Sitting Respiration 16 Pulse 62 Pulse Source Monitor Temp 98.2 F Temp Source Temporal Pulse Oximetry (%) 98 Oxygen Delivery Method room air Intake Visit Reasons: Establish care Is patient in pain?: No Allergies duloxetine Allergy (Verified 08/06/24 11:06) Nausea Penicillins Allergy (Verified 08/06/24 11:06) Rash Medications ???Medication ???Instructions ???Recorded ???Confirmed ???Type aspirin 81 mg tablet,delayed 81 mg PO QDAY 08/05/24 08/06/24 Hi story release (Adult Aspirin Regimen) atorvastatin 80 mg tablet 80 mg PO QDAY 08/05/24 08/06/24 Hi story clopidogrel 75 mg tablet 75 mg PO QDAY 08/05/24 08/06/24 Hi story hydrochlorothiazide 25 mg tablet 25 mg PO QDAY 08/05/24 08/06/24 Hi story levothyroxine 75 mcg capsule 225 mcg PO QDAY 08/05/24 08/06/24 History metformin 1,000 mg tablet 1,000 mg PO BIDWMEAL 08/05/2412/24 History Have you fallen in the past year?: No PFSH Medical History Carotid artery stenosis Acute right arterial ischemic stroke, middle cerebral artery (MCA) Hypertension Hypothyroid Hyperlipidemia Diabetes mellitus Surgical History H/O carotid endarterectomy ( 06/16/17) History of cholecystectomy ( 1992) Family History Mother Breast cancer Father Alcohol abuse Social History Smoking Status: Former smoker smoking status stop date: 06/02/17 how long ago did patient quit smokin years HPI HPI HPI: LUIS ESPINO, is a 64 M who presents to the office today for evaluation of severe L ICA stenosis as referred from his PCP. He had R CEA by Dr. Atkinson in 2019 and so wanted to return to him for management of his L carotid disease. He had carotid duplex at [facility] November 2023 which demonstrated >70% L ICA stenosis with max PSV 321.9/103.7 cm/s. He has not had any recent CTA. He had R ischemic MCA stroke in 2019 with which he had LUE weakness and sensory changes; he has residual neuropathy/altered sensation and some mild weakness. This was when his R ICA stenosis was identified leading to R CEA. He denies any recurrent stroke or similar symptoms. His medical history is otherwise significant for HTN, diabetes, hyperlipidemia, hypothyroidism. He takes ASA, Plavix, and high-intensity statin daily. ROS General General: No weight change, appetite, fatigue, colon cancer, breast cancer or weakness HEENT HEENT: No difficulty swallowing, eye injury, eye surgery, swollen glands or hoarseness Endo Endocrine: Yes thyroid disease and diabetes mellitus; No thyroid cancer, Hair loss, heat intolerance or cold intolerance Skin Skin: No rash or changing moles Musc Musculoskeletal: No back problems, arthritis, rheumatoid arthritis, gout or joint pain Cardio Cardiovascular: Yes high blood pressure; No murmur, pacemaker, heart disease, atrial fibrillation, heart attack, heart stent, palpitations, shortness of breath with exertion or chest pain Psych Psychiatric: No depression, anxiety or hearing voices Resp Respiratory: No shortness of breath, No sleep apnea, No cough, No COPD, No asthma, No emphysema and No wheezing Gastro Gastrointestinal: No abdominal pain, No nausea or vomiting, No diarrhea, No constipation, No blood in stool, No acid reflux, No hemorrhoids, No ulcers, Yes gallbladder problem and No black,tarry stools Robby Hematologic: Yes blood thinners, No blood disorders, No bleeding, No anemia and No blood clots Neuro Neurologic: No system reviewed and no additional complaints, except as documented, No as per HPI, No abnormal gait, No abnormal hearing, No abnormal movements, No abnormal speech, No behavioral changes, Yes burning sensations, No confusion, No convulsions, No disequilibrium, No dizziness, No localized weakness, No frequent falls, No headache(s), No lack of coordination, No loss of vision, No memory loss, Yes numbness, No other visual disturbances, No radicular pain, Yes restless legs, No sensory deficit, No syncope, Yes tingling, No tremor(s), No weakness and No other Exam Const General: cooperative, comfortable and no acute distress Orientation: alert, awake and oriented x3 HENMT Head: normal to inspection, normocephalic and atraumatic (more content not included)... Normal [facility] Office Visiton 07-05-2024 Follow-up visit [id number] SrinivasLuis 1960 M Date Provider Department Center 07/05/2024 [id number] PALMER [facility] None Family History Problem Relation Age of Onset Breast cancer Mother Alcohol abuse Father Other Mother Family Status - Relation Status Age at Mother 78 Notes: aplastic anemia Father 42 Notes: Cirrhosis Sister Alive Sister Alive Level of Service:35635 [place] OFFICE/OUTPATIENT NEW MODERATE MDM 45 MINUTES Reason for Visit and Comments: New Patient [542] - (ref Dr. Rachel Rangel) ETL TESTER eval for left carotid stenosis; CU 11/18/23, s/p right CEA 2018 - Dr. Atkinson [facility] Progress Noteon 06-11-2024 Progress Note New issue. Etiology unclear. Reports has resolved and was evaluated by optho. Not sure optho name so will get me name so we can request records. Aware of yearly need for dilated eye exam given hx DM2 to screen for retinopathy. Normal [facility] Progress Note Chronic, stable. Residual L UE neuropathy. On secondary prevention with DAPT and high intensity status. S/P R CEA. Normal [facility] Progress Note Chronic, stable. He reported mood ok and denies SI. Not sure if effexor 37.5mg helps or not but is not taking regularly. 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 Normal [facility] Progress Note Chronic, controlled. Continue atorvastatin 80mg. Tolerating although has read articles that make him nervous to take it. Inquires if better alternative. Reviewed PSK9 and ezetimibe as alternate options but really best data w/statin for his situation. Agreeable to continue statin as is a critical medication for secondary stroke prevention for him given his stroke was likely atheroembolic from carotid artery atherosclerosis. Normal [facility] Progress Note Chronic, uncontrolle d and overdue for HgA1c. Diet has not been good given stress of caregiver role. Has missed doses metformin. Recommended GLP1 for dual indication and CVD risk reduction. Pt desires to continue max dose metformin and work to get back with his diet and exercise. Follow up 3 months HgA1c. Normal [facility] Progress Note Chronic, uncontrolle d w/TSH above goal. Hard to interpret TSH in setting of missed doses. Regardless will check TSH today. Continue 225mcg daily for now. Normal [facility] Progress Note Chronic, stable. Reviewed benefits of GLP1 for both his DM2 and cardiovascular risk reduction. Leery of additional medication. Has done well w/meditteranean diet in past and just hasn't been able to do it give need to care for . Normal [facility] Progress Note Chronic, stable and at goal today although likely at goal due to recent GI illness and decreased po intake as has not been taking BP meds regularly. Continue owpepdfegq0pm daily and hydrochlorothiazide 25mg daily. 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 Doing ok off gabapentin. Has symptoms but tolerates and prefers to avoid medication. Only taking effexor intermittently at best so unsure if helpful or not. Normal [facility] CBC (HEMOGRAM)on 06-10-2024 Erythrocyte distribution width (RBC) [Ratio] 13.4 % Normal 11.5-15.0 [facility] Comment on above: Performed By: #### L [id number] ####Park Manager: LIZ SQUIRES ([id number])[facility] ([address] Hematocrit (Bld) [Volume fraction] 47.7 % Normal 40.0-52.0 [facility] Comment on above: Performed By: #### L AB294 ####Park Manager: LIZ SQUIRES ([id number])[facility] ([facility])[address] [place] [address] Hemoglobin (Bld) [Mass/Vol] 15.8 g/dL Normal 13.0-18.0 [facility] Comment on above: Performed By: #### L AB294 ####Park Manager: LIZ SQUIRES ([id number])[facility] ([facility])[address] [place] [address] MCH (RBC) [Entitic mass] 31.7 pg Normal 26.0-34.0 [facility] Comment on above: Performed By: #### L AB294 ####Park Manager: LIZ SQUIRES ([phone])[facility])[address] [place] [address] MCHC 33.1 % Normal 30.5-36.0 [facility] Comment on above: Performed By: #### L AB294 ####Park Manager: LIZ SQUIRES ([id number])[facility] ([facility])[address] [place] [address] MCV (RBC) [Entitic vol] 95.8 fL Normal 77.0-99.0 [facility] Comment on above: Performed By: #### L AB294 ####Park Manager: LIZ SQUIRES ([id number])[facility] ([facility])[address] [place] [address] Platelet mean volume (Bld) [Entitic vol] 10.6 fL Normal 9.0-12.7 [facility] Comment on above: Performed By: #### L AB294 ####Park Manager: LIZ SQUIRES ([phone])[facility] ([facility])[address] [place] [address] Platelets (Bld) [#/Vol] 234 10*3/uL Normal 140-440 [facility] Comment on above: Performed By: #### L AB294 ####Park Manager: LIZ SQUIRES ([id number])[facility] ([facility])[address] [place] [address] RBC (Bld) [#/Vol] 4.98 10*6/uL Normal 4.40-5.90 [facility] Comment on above: Performed By: #### L AB294 ####Park Manager: LIZ SQUIRES ([id number])[facility] ([facility])[address] [place] [address] WBC (Bld) [#/Vol] 6.3 10*3/uL Normal 3.6-10.7 [facility] Comment on above: Performed By: #### L AB294 ####Park Manager: LIZ SQUIRES ([id number])[facility] ([facility])[address] [place] [address] CBC panel Auto (Bld)on 06-10 Erythrocyte distribution width (RBC) [Ratio] 13.4 % 11.5 - 15.0 % [facility] Hematocrit (Bld) [Volume fraction] 47.7 % 40.0 - 52.0 % [facility] Hemoglobin (Bld) [Mass/Vol] 15.8 g/dL 13.0 - 18.0 g/dL [facility] Interpretation and review of laboratory results Normal [facility] MCH (RBC) [Entitic mass] 31.7 pg 26.0 - 34.0 pg [facility] MCHC (RBC) [Mass/Vol] 33.1 % 30.5 - 36.0 % [facility] MCV (RBC) [Entitic vol] 95.8 fL 77.0 - 99.0 fL [facility] Platelet mean volume (Bld) [Entitic vol] 10.6 fL 9.0 - 12.7 fL [facility] Platelets (Bld) [#/Vol] 234 10*3/uL 140 - 440 10*3/uL [facility] RBC (Bld) [#/Vol] 4.98 10*6/uL 4.40 - 5.9 0 10*6/uL [facility] WBC (Bld) [#/Vol] 6.3 10*3/uL 3.6 - 10.7 10*3/uL [facility] COMPREHENSIVE METABOLIC PANE Adriel 06-10-2024 Albumin [Mass/Vol] 3.9 g/dL Normal 3.4-4.8 [facility] Comment on above: Performed By: #### L AB18, [id number], LAB17 ####Park Manager: LIZ SQUIRES ([id number])[facility] ([facility])[address] [place] [address] ALP [Catalytic activity/Vol] 68 U/L Normal 40-150 [facility] Comment on above: Performed By: #### L AB18, [id number], LAB17 ####Park Manager: LIZ SQUIRES ([id number])[facility] ([facility])[address] [place] [address] ALT [Catalytic activity/Vol] 26 U/L Normal <40 [facility] Comment on above: Performed By: #### L AB18, [id number], LAB17 ####Park Manager: LIZ SQUIRES ([id number])[facility] ([facility])[address] [place] [address] Anion gap [Moles/Vol] 8 mmol/L Normal 3-13 [facility] Comment on above: Performed By: #### L AB18, [id number], LAB17 ####Park Manager: LIZ SQUIRES ([id number])[facility] ([facility])[address] [place] [address] AST [Catalytic activity/Vol] 26 U/L Normal <34 [facility] Comment on above: Performed By: #### L AB18, [id number], LAB17 ####Park Manager: LIZ SQUIRES ([id number])[facility] ([facility])[address] [place] [address] [place] Bilirubin [Mass/Vol] 0.7 mg/dL Normal <1.2 [facility] Comment on above: Performed By: #### L AB18, [id number], LAB17 ####Park Manager: LIZ SQUIRES ([id number])[facility] ([facility])[address] [place] [address] Calcium [Mass/Vol] 9.5 mg/dL Normal 8.8-10.0 [facility] Comment on above: Performed By: #### L AB18, [id number], LAB17 ####Park Manager: LIZ SQUIRES ([id number])[facility] ([facility])[address] [place] [address] [place] Chloride [Moles/Vol] 103 mmol/L Normal 98-107 [facility] Comment on above: Performed By: #### L AB18, [id number], LAB17 ####Park Manager: LIZ SQUIRES ([phone])[facility] ([facility])[address] [place] [address] [place] CO2 [Moles/Vol] 29 mmol/L Normal 23-31 [facility] Comment on above: Performed By: #### L AB18, [id number], LAB17 ####Park Manager: LIZ SQUIRES ([phone])[facility])[address] [place] [address] Creatinine [Mass/Vol] 0.92 mg/dL Normal 0.72-1.25 [facility] Comment on above: Performed By: #### L AB18, [id number], LAB17 ####Park Manager: LIZ SQUIRES ([phone])[facility] ([facility])[address] [place] [address] GLOMERULAR FILTRATION RATE ML/MIN/1.73 SQ M.PREDICTED >90.0 Normal >60.0 [facility] Comment on above: Result Comment: Calc ulation based on the Chronic Kidney Disease Epidemiology Collaboration (CKD-EPI) equation refit without adjustment for race Performed By: #### L AB18, [id number], LAB17 ####Park Manager: LIZ SQUIRES ([id number])[facility] ([facility])[address] [place] [address] [place] Glucose [Mass/Vol] 106 mg/dL Normal 82-115 [facility] Comment on above: Performed By: #### L AB18, [id number], LAB17 ####Park Manager: LIZ SQUIRES ([phone])[facility])[address] [place] [address] [place] Potassium [Moles/Vol] 4.0 mmol/L Normal 3.5-5.1 [facility] Comment on above: Result Comment: Plas ma potassium values may be up to 0.5 mmol/L lower than serum values. Performed By: #### L AB18, [id number], LAB17 ####Park Manager: LIZ SQUIRES ([phone])[facility] ([facility])[address] [place] [address] Protein [Mass/Vol] 7.9 g/dL Normal 6.4-8.3 [facility] Comment on above: Performed By: #### L AB18, [id number], LAB17 ####Park Manager: LIZ SQUIRES ([id number])[facility] ([facility])[address] [place] [address] Sodium [Moles/Vol] 140 mmol/L Normal 136-145 [facility] Comment on above: Performed By: #### L AB18, [id number], LAB17 ####Park Manager: LIZ SQUIRES ([id number])[facility] ([facility])[address] [place] [address] Urea nitrogen [Mass/Vol] 20 mg/dL Normal 9-23 [facility] Comment on above: Performed By: #### L AB18, [id number], LAB17 ####Park Manager: LIZ SQUIRES ([phone])[facility] ([facility])[address] [place] [address] Comprehensive metabolic 1998 panelon 06-10-2024 Albumin [Mass/Vol] 3.9 g/dL 3.4 - 4.8 g/dL [facility] ALP [Catalytic activity/Vol] 68 U/L 40 - 150 U/L [facility] ALT [Catalytic activity/Vol] 26 U/L NINF - 40 U/L [facility] Anion gap [Moles/Vol] 8 mmol/L 3 - 13 mmol/L [facility] AST [Catalytic activity/Vol] 26 U/L NINF - 34 U/L [facility] Bilirubin [Mass/Vol] 0.7 mg/dL NINF - 1.2 mg/dL [facility] Calcium [Mass/Vol] 9.5 mg/dL 8.8 - 10. 0 mg/dL [facility] Chloride [Moles/Vol] 103 mmol/L 98 - 10 7 mmol/L [facility] CO2 [Moles/Vol] 29 mmol/L 23 - 31 mmol/L [facility] Creatinine [Mass/Vol] 0.92 mg/dL 0.72 - 1.25 mg/dL [facility] GFR/1.73 sq M.predicted (S/P/Bld) [Vol rate/Area] - PINF [facility] Comment on above: Calculation based on the Chronic Kidney Disease Epidemiology Collaboration (CKD-EPI) equation refit without adjustment for race Glucose [Mass/Vol] 106 mg/dL 82 - 115 mg/dL [facility] Interpretation and review of laboratory results Normal [facility] Potassium [Moles/Vol] 4 mmol/L 3.5 - 5.1 mmol/L [facility] Comment on above: Plasma potassium nikhil ues may be up to 0.5 mmol/L lower than serum values. Protein [Mass/Vol] 7.9 g/dL 6.4 - 8.3 g/dL [facility] Sodium [Moles/Vol] 140 mmol/L 136 - 145 mmol/L [facility] Urea nitrogen [Mass/Vol] 20 mg/dL 9 - 23 mg/dL [facility] HEMOGLOBIN A1Con 06-10-2024 Glucose [Mass/Vol] 131 mg/dL Normal [facility] Comment on above: Result Comment: [employer] COMMENTS: HbA1c values of 5.7-6.4 percent indicate an increased risk for developing diabetes mellitus. HbA1c values greater than or equal to 6.5 percent are diagnostic of diabetes mellitus. For diagnosis of diabetes in individuals without unequivocal hyperglycemia, results should be confirmed by repeat testing. Performed By: #### L AB90 ####Park Manager: LIZ SQUIRES ([id number])[facility] ([address] HEMOGLOBIN A1C 6.2 %HbA1C High <5.7 [facility] Comment on above: Result Comment: Norm al less than 5.7% Prediabetes 5.7% to 6.4% Diabetes 6.5% or higher --HgbA1C levels may not be accurate in patients who have renal disease, received recent blood transfusions, are anemic, or who have dyshemoglobinemia. Performed By: #### L AB90 ####Park Manager: LIZ SQUIRES ([phone])[facility] ([facility])[address] [place] [address] LIPID PANELon 06-10-2024 Cholesterol [Mass/Vol] 193 mg/dL Normal <200 [facility] Comment on above: Performed By: #### L AB18, [id number], LAB17 ####Park Manager: LIZ SQUIRES ([id number])[facility] ([facility])[address] [place] [address] Cholesterol in HDL [Mass/Vol] 39 mg/dL Low >=60 [facility] Comment on above: Performed By: #### L AB18, [id number], LAB17 ####Park Manager: LIZ SQUIRES ([phone])[facility])[address] [place] [address] Cholesterol.total/Chol esterol in HDL [Mass ratio] 5 {ratio} Normal [facility] Comment on above: Result Comment: Ref Range: < 3 Low Risk for CHD 3-6 Mod Risk for CHD > 6 High Risk for CHD Performed By: #### L AB18, [id number], LAB17 ####Park Manager: LIZ SQUIRES ([phone])[facility] ([facility])[address] [place] [address] LOW DENSITY LIPOPROTEIN 121 mg/dL High 0-<100 [facility] Comment on above: Performed By: #### L AB18, [id number], LAB17 ####Park Manager: LIZ SQUIRES ([phone])[facility] ([facility])[address] [place] [address] NON-HDL CHOLESTEROL, CALCULATED 154 High <130 [facility] Comment on above: Performed By: #### L AB18, [id number], LAB17 ####Park Manager: LIZ SQUIRES ([phone])[facility])[address] [place] [address] Triglyceride [Mass/Vol] 163 mg/dL High <150 [facility] Comment on above: Performed By: #### L AB18, [id number], LAB17 ####Park Manager: LIZ SQUIRES ([id number])[facility] ([facility])[address] [place] [address] VERY LOW DENSITY LIPOPROTEIN, CALCULATED 33 mg/dL High <=30 [facility] Comment on above: Performed By: #### L AB18, [id number], LAB17 ####Park Manager: LIZ SQUIRES ([id number])[facility] ([facility])[address] [place] [address] Laboratory - Chemistry and C hemistry - challengeon 06-10-2024 Average glucose Estimated from glycated hemoglobin (Bld) [Mass/Vol] 131 mg/dL [facility] [employer] TSH Qn 30.76 m[IU]/L High [facility] h Laboratory - Hematology and Cell countson 06-10-2024 HbA1c (Bld) [Mass fraction] 6.2 % High [facility] Comment on above: Normal less than 5.7 % Prediabetes 5.7% to 6.4% Diabetes 6.5% or higher --HgbA1C levels may not be accurate in patients who have renal disease, received recent blood transfusions, are anemic, or who have dyshemoglobinemia. Lipid 1996 panelon 5 Cholesterol [Mass/Vol] 193 mg/dL [facility] mg/dL [facility] Cholesterol in HDL [Mass/Vol] 39 mg/dL Low 60 - PINF mg/dL [facility] [employer] Cholesterol in LDL [Mass/Vol] 121 mg/dL High 0 - <100 [facility] Cholesterol.total/Chol esterol in HDL [Mass ratio] 5 {ratio} [facility] Comment on above: Ref Range: < 3 Low Risk for CHD 3-6 Mod Risk for CHD > 6 High Risk for CHD Interpretation and review of laboratory results Abnormal [facility] [employer] NON-HDL CHOLESTEROL, CALCULATED 154 High NINF - 130 [facility] [employer] Triglyceride [Mass/Vol] 163 mg/dL High [facility] - 150 mg/dL [facility] VERY LOW DENSITY LIPOPROTEIN, CALCULATED 33 mg/dL High [facility] - 30 mg/dL [facility] MICROALBUMIN / CREATININE UR INE RATIOon 06-10-2024 CREATININE, URINE 134.0 mg/dL Normal 63.0-166.0 [facility] Comment on above: Performed By: #### L AB689 ####Park Manager: LIZ SQUIRES ([id number])[facility] ([facility])[address] [place] [address] MICROALBUMIN, URINE 65.4 ug/mL Normal [employer] [facility] Comment on above: Result Comment: [employer] COMMENTS: Microalbumin concentrations <30 are considered normal, 30-300 are considered microalbuminuria (or risk of diabetic nephropathy), and >300 are considered clinical albuminuria (clinical nephropathy). Diabetes Care,27, Supplement 1, [id number] Performed By: #### L AB689 ####Park Manager: LIZ SQUIRES ([id number])[facility] ([facility])[address] [place] [address] MICROALBUMIN/CREATININ E RATIO 49 mg/g High <30 [employer] [facility] Comment on above: Performed By: #### L AB689 ####Park Manager: LIZ SQUIRES ([id number])[facility] ([facility])[address] [place] [address] Microalbumin/Creatinine rati o panel (U)Ordered By: Ruby Iqbal on 06-10-2024 Albumin DL <= 20 mg/L (U) [Mass/Vol] 65.4 ug/mL [employer] Albumin/Creatinine DL <= 20 mg/L (U) [Mass ratio] 49 mg/g High NINF - 30 mg/g [employer] CREATININE, URINE 134 mg/dL 63.0 - 166 .0 mg/dL [employer] Interpretation and review of laboratory results Abnormal [employer] Microalbumin concentrations <30 are considered normal, 30-300 are considered microalbuminuria (or risk of diabetic nephropathy), and >300 are considered clinical albuminuria (clinical nephropathy). Diabetes Care,27, Supplement 1, [id number] [facility] [employer] No Panel Informationon 06-10 Interpretation and review of laboratory results Abnormal [employer] HbA1c values of 5.7- 6.4 percent indicate an increased risk for developing diabetes mellitus. HbA1c values greater than or equal to 6.5 percent are diagnostic of diabetes mellitus. For diagnosis of diabetes in individuals without unequivocal hyperglycemia, results should be confirmed by repeat testing. [employer] Office Visiton 06-10-2024 Follow-up visit [id number] Luis Espino 1960 M Date Provider Department Center 06/10/2024 [id number] RANGEL [facility] Family History Problem Relation Age of Onset Breast cancer Mother Alcohol abuse Father Other Mother Family Status - Relation Status Age at Mother 78 Notes: aplastic anemia Father 42 Notes: Cirrhosis Sister Alive Sister Alive Level of Service:06198 [place] OFFICE/OUTPATIENT ESTABLISHED MOD MDM 30 MIN Reason for Visit and Comments: Diabetes [34] - REGULAR VISIT Normal [facility] Progress Noteon 06-10-2024 Progress Note [facility] - [address] [facility] [address] Dept: [phone] Dept Loc: [phone] 06/10/2024 Visit type: Routine Follow up visit Reason for Visit: Diabetes (REGULAR VISIT ) ASSESSMENT/PLAN 1. Type 2 diabetes mellitus with hyperglycemia, without long-term current use of insulin (HCC) Assessment & Plan: Chronic, uncontrolled and overdue for HgA1c. Diet has not been good given stress of caregiver role. Has missed doses metformin. Recommended GLP1 for dual indication and CVD risk reduction. Pt desires to continue max dose metformin and work to get back with his diet and exercise. Follow up 3 months HgA1c. Orders: - Hemoglobin A1c - Microalbumin / creatinine urine ratio - Comprehensive metabolic panel - atorvastatin (Lipitor) 80 MG tablet; Take 1 tablet (80 mg) by mouth every evening., Starting [facility] 06/10/2024, Normal - CBC - metFORMIN XR (Glucophage-XR) 500 MG 24 hr tablet; Take 2 tablets (1,000 mg) by mouth 2 times daily (with meals)., Starting [facility] 06/10/2024, Normal 2. Encounter for colorectal cancer screening 3. Recurrent mild major depressive disorder with anxiety (HCC) Assessment & Plan: Chronic, stable. He reported mood ok and denies SI. Not sure if effexor 37.5mg helps or not but is not taking regularly. 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 4. Hypothyroidism, unspecified type Assessment & Plan: Chronic, uncontrolled w/TSH above goal. Hard to interpret TSH in setting of missed doses. Regardless will check TSH today. Continue 225mcg daily for now. Orders: - TSH - levothyroxine (Synthroid, Levoxyl) 75 MCG tablet; Take 3 tablets (225 mcg) by mouth daily., Starting [facility] 06/10/2024, Normal 5. Mixed hyperlipidemia Assessment & Plan: Chronic, controlled. Continue atorvastatin 80mg. Tolerating although has read articles that make him nervous to take it. Inquires if better alternative. Reviewed PSK9 and ezetimibe as alternate options but really best data w/statin for his situation. Agreeable to continue statin as is a critical medication for secondary stroke prevention for him given his stroke was likely atheroembolic from carotid artery atherosclerosis. Orders: - Lipid panel - atorvastatin (Lipitor) 80 MG tablet; Take 1 tablet (80 mg) by mouth every evening., Starting Fri06/10/2024, Normal 6. Class 2 severe obesity due to excess calories with serious comorbidity and body mass index (BMI) of 38.0 to 38.9 in adult (HCC) Assessment & Plan: Chronic, stable. Reviewed benefits of GLP1 for both his DM2 and cardiovascular risk reduction. Leery of additional medication. Has done well w/meditteranean diet in past and just hasn't been able to do it give need to care for . 7. History of ischemic right MCA stroke Assessment & Plan: Chronic, stable. Residual L UE neuropathy. On secondary prevention with DAPT and high intensity status. S/P R CEA. Orders: - atorvastatin (Lipitor) 80 MG tablet; Take 1 tablet (80 mg) by mouth every evening., Starting [facility] 06/10/2024, Normal - [facility] - clopidogrel (Plavix) 75 MG tablet; Take 1 tablet (75 mg) by mouth daily., Starting Fri06/10/2024, Normal 8. Primary hypertension Assessment & Plan: Chronic, stable and at goal today although likely at goal due to recent GI illness and decreased po intake as has not been taking BP meds regularly. Continue [id number] daily and hydrochlorothiazide 25mg daily. Orders: - amLODIPine (Norvasc) 5 MG tablet; Take 1 tablet (5 mg) by mouth daily., Starting Fri06/10/2024, Normal 9. Carotid artery stenosis, symptomatic, bilateral Assessment & Plan: Chronic, L artery progressed on last US to 70-79% from <50%. Reviewed w/him today. Agreeable to seeing Dr. Atkinson who did R CEA. Continue aggressive secondary prevention w/statin (LDL goal <70), ASA and plavix. No bleeding issues. Orders: - [facility] Vascular Surgery 10. Neuropathy Assessment & Plan: Chronic stable L finger neuropathy 2/ R MCA stroke 2017. Doing ok off gabapentin. Has symptoms but tolerates and prefers to avoid medication. Only taking effexor intermittently at best so unsure if helpful or not. Follow up in about 3 months (around 09/08/2024) for a1c. Subjective Patient: Luis Espino is a 64 y.o. male HPI Under more stress- moved in with 90 year old family member ('s uncle) to help care for him. has DOW and has had to have frequent admission for fluid overload. Double Vision- started in May. Saw eye doctor. Was told to wear eye patch. Double vision has since resolved. Record not available to me today. Has follow up with eye doctor 07/14 DM2- weight down 10 pounds since last year but reports is b/c had URI and GI illness going around last couple weeks so appetite has been gone. Now feeling better, tolerating po. HTN- hasn't been checking BP at home. Hasn't taken BP (more content not included)... Normal [facility] Progress Note Ma time with patient 6 minutes Major May Normal [facility] THYROID STIMULATING HORMONEo n 06-10-2024 THYROID STIMULATING HORMONE 30.76 uIU/mL High 0.35-4.94 [facility] Comment on above: Performed By: #### L AB18, [id number], LAB17 ####Park Manager: LIZ SQUIRES ([phone])[facility] ([facility])[address] [place] [address] TSH Qnon 06-10-2024 Interpretation and review of laboratory results Abnormal [facility] Progress Noteon 05-06-2024 Progress Note Received call from patient, requesting to schedule appointment with Dr Rangel - pcp. Reviewed available appointments and a date / time was scheduled that Terrance chose. No other questions or concerns reported by Terrance. [facility] Progress Noteon 04-01-2024 Progress Note Additional attempt m riri to speak to Luis and discuss awdia, cologuard. He did not answer, rfp writer did not leave an additional voicemail message. Letter mailed to residence on file. [facility] Progress Note Luis Espino's n darren is listed on [place] Care Gap ([employer]) report generated for [facility] for: Colon cancer screening Chart reviewed. Date of last office visit: 05/22/2023 Date of next scheduled office visit: Visit date not found Health maintenance topics currently due in [facility] EMR: Colon cancer screening Kidney Evaluation for Person with Diabetes DM Retinopathy Testing DM Foot Exam. DM Dental Exam Medicare Annual Wellness Visit. Depression Screening Vaccine(s) Plan. Call was placed to Luis to review care gaps & inquire if pt would like to schedule office visit for health maintenance or had any questions about their health care.Had to [facility] requesting callback. Ok to [facility] per communication form on file. Did see in care everywhere that Luis may have had a cologuard ordered by an outside of [facility] provider. Called [employer] and they confirmed a kit was delivered to Luis on 03-09-[address]. [address] Rangel would be notified of results but there are none currently. Shoulder Tap is activated but patient does not appear to utilize application. [facility] 36on 03-25-2024 36 [facility] MEDICATION ADHERENCE Luis Espino - 1960 PCP: Rachel Rangel DO Per insurance med adherence report, patient is due for refills on METFORMIN. Last prescription date 12/09/2023 Quantity: 360 Refills: 1 Per chart review, patient has refills. [facility] [address] [place] [address] Diabetes: Lab Results Component Value Date HGBA1C 9.1 (A) 05/22/2023 MICROALBCREA 18.1 02/08/2021 K 4.1 05/22/2023 NA 136 05/22/2023 LDL 64 01/17/2022 HDL 28 (L) 05/22/2023 TRIG 145 05/22/2023 After chart review, patient should still be on this medication and needs to pick it up at the pharmacy. Will outreach to patient via [employer] Last appointment 05/22/2023 , Next appointment is Visit date not found [facility] No Panel InformationOrdered By: Bernardo Galeano on 11-18-2023 Left CCA dist EDV 8.4 cm/s [facility] Work Phone: Left CCA dist PSV 52.7 cm/s [facility] Work Phone: Left CCA mid EDV 12.10 cm/s [facility] Work Phone: Left CCA mid PSV 70.90 cm/s [facility] Work Phone: Left CCA prox EDV 8.5 cm/s [facility] Work Phone: Left CCA prox PSV 61.1 cm/s [facility] Work Phone: Left ECA EDV 10.70 cm/s [facility] Work Phone: Left ECA PSV 97.8 cm/s [facility] Work Phone: Left ICA dist EDV 10.8 cm/s [facility] Work Phone: Left ICA dist PSV 28.5 cm/s [facility] Work Phone: Left ICA mid EDV 31.1 cm/s [facility] Work Phone: Left ICA mid PSV 201.2 cm/s [facility] Work Phone: Left ICA prox EDV 103.7 cm/s [facility] Work Phone: Left ICA prox PSV 321.9 cm/s [facility] Work Phone: Left ICA/CCA PSV 4.54 [facility] Work Phone: Left subclavian mid EDV 0.0 cm/s [facility] Work Phone: Left subclavian mid PSV 169.5 cm/s [facility] Work Phone: Left vertebral EDV 6.20 cm/s [facility] Work Phone: Left vertebral PSV 32.6 cm/s [facility] Work Phone: Right CCA dist EDV 6.5 cm/s [facility] Work Phone: Right cca dist PSV 49.3 cm/s [facility] Work Phone: Right CCA mid EDV 12.00 cm/s [facility] Work Phone: Right CCA mid PSV 64.70 cm/s [facility] Work Phone: Right CCA prox EDV 9.7 cm/s [facility] Work Phone: Right CCA prox PSV 94.2 cm/s [facility] Work Phone: Right ECA EDV 4.30 cm/s [facility] Work Phone: Right ECA PSV 71.3 cm/s [facility] Work Phone: Right ICA dist EDV 26.7 cm/s [facility] Work Phone: Right ICA dist PSV 95.8 cm/s [facility] Work Phone: Right ICA mid EDV 23.4 cm/s [facility] Work Phone: Right ICA mid PSV 79.3 cm/s [facility] Work Phone: Right ICA prox EDV 15.0 cm/s [facility] Work Phone: Right ICA prox PSV 52.7 cm/s [facility] Work Phone: Right ICA/CCA PSV 1.48 [facility] Work Phone: Right subclavian mid EDV 0.0 cm/s [facility] Work Phone: Right subclavian mid PSV 101.4 cm/s [facility] Work Phone: Right vertebral EDV 11.70 cm/s [facility] Work Phone: Right vertebral PSV 30.7 cm/s [employer] Work Phone: No Panel Informationon 11-17 <50% stenosis in the right internal carotid artery. Mild and heterogeneous plaque (proximal) in the right internal carotid artery. 70-79% stenosis in the left internal carotid artery. Severe and heterogeneous plaque (proximal) in the left internal carotid artery. Normal antegrade flow involving the right vertebral artery. Normal antegrade flow involving the left vertebral artery. Left clavicle to bifurcation measurement: 7 cm. Patient was asymptomatic. Right Carotid Patient is s/p carotid endarterectomy (>70% stenosis). Common Carotid Artery: Mild and heterogeneous plaque (prox, mid and distal). Internal Carotid Artery: <50% stenosis. Mild and heterogeneous plaque (proximal). External Carotid Artery: Mild and heterogeneous plaque (proximal). Vertebral Artery: Flow is antegrade. Subclavian Artery: Normal. Left Carotid Common Carotid Artery: Mild and heterogeneous plaque (prox, mid and distal). Internal Carotid Artery: 70-79% stenosis in the proximal ICA. Severe and heterogeneous plaque (proximal). Middle ICA has turbulent flow. External Carotid Artery: Mild and heterogeneous plaque (prox). Vertebral Artery: Flow is antegrade. Subclavian Artery: Normal. Comparison Study The exam was compared to the study performed on 05/24/2019. 1. Less than 50% stenosis involving the right internal carotid artery. 2. Less than 50% stenosis involving the left internal carotid artery. 3. Normal antegrade flow involving the right vertebral artery. 4. Normal antegrade flow involving the left vertebral artery. Upper Shaper Details A jiménez scale, color Doppler imaging and spectral Doppler analysis ultrasound was performed. During the study longitudinal and transverse views were obtained. Pulsed wave doppler was performed. The exam was performed with the patient in the supine position. Overall the study quality was adequate. CV CPACS CBC panel Auto (Bld)on 05-22 Erythrocyte distribution width (RBC) [Ratio] 14.5 % 11.5 - 14.5 % [employer] Hematocrit (Bld) [Volume fraction] 43.4 % 40.0 - 52.0 % [employer] Hemoglobin (Bld) [Mass/Vol] 14.5 g/dL 13.0 - 18.0 g/dL [facility] Interpretation and review of laboratory results Normal [facility] MCH (RBC) [Entitic mass] 30.9 pg 26.0 - 34.0 pg [facility] MCHC (RBC) [Mass/Vol] 33.4 % 32.0 - 36.0 % [facility] MCV (RBC) [Entitic vol] 92.8 fL 80.0 - 98.0 fL [facility] Platelet mean volume (Bld) [Entitic vol] 7.7 fL 7.4 - 12.4 fL [facility] Platelets (Bld) [#/Vol] 258 10*3/uL 140 - 440 10*3/uL [facility] RBC (Bld) [#/Vol] 4.68 10*6/uL 4.40 - 5.9 0 10*6/uL [facility] WBC (Bld) [#/Vol] 7.5 10*3/uL 3.6 - 10.7 10*3/uL [facility] Comprehensive metabolic 1998 panelon 05-22-2023 Albumin [Mass/Vol] 4.5 g/dL 3.5 - 5.0 g/dL [facility] ALP [Catalytic activity/Vol] 93 U/L 38 - 126 U/L [facility] ALT [Catalytic activity/Vol] 24 U/L 0 - 49 U/L [facility] Anion gap [Moles/Vol] 9 mmol/L 3 - 13 mmol/L [facility] AST [Catalytic activity/Vol] 27 U/L 15 - 46 U/L [facility] Bilirubin [Mass/Vol] 1.0 mg/dL 0.2 - 1 .3 mg/dL [facility] Calcium [Mass/Vol] 9.2 mg/dL 8.4 - 10. 4 mg/dL [facility] Chloride [Moles/Vol] 97 mmol/L Low 98 - 10 7 mmol/L [facility] CO2 [Moles/Vol] 30 mmol/L 22 - 30 mmol/L [facility] Creatinine [Mass/Vol] 0.80 mg/dL 0.66 - 1.25 mg/dL [facility] GFR/1.73 sq M.predicted MDRD (S/P/Bld) [Vol rate/Area] - PINF [facility] Comment on above: Calculation based on the Chronic Kidney Disease Epidemiology Collaboration (CKD-EPI) equation refit without adjustment for race Glucose [Mass/Vol] 207 mg/dL High 70 - 100 mg/dL [facility] Potassium [Moles/Vol] 4.1 mmol/L 3.5 - 5.1 mmol/L [facility] Protein [Mass/Vol] 8.3 g/dL High 6.3 - 8.2 g/dL [facility] Sodium [Moles/Vol] 136 mmol/L 135 - 145 mmol/L [facility] Urea nitrogen [Mass/Vol] 15 mg/dL 9 - 20 mg/dL [facility] HCV Ab IA Qlon 05-22-2023 Interpretation and review of laboratory results Normal [facility] HbA1c (Bld) [Mass fraction]O rdered By: Juliette Valdez on 05-22-2023 Interpretation and review of laboratory results Abnormal [facility] HbA1c (Bld) [Mass fraction]o n 05-22-2023 A1C Reference range 4.0-6.4 [facility] Laboratory - Chemistry and C hemistry - challengeon 05-22-2023 TSH Qn 16.202 m[IU]/L High [facility] Laboratory - Hematology and Cell countsOrdered By: Juliette Valdez on 05-22-2023 HbA1c (Bld) [Mass fraction] 9.1 % Abnormal - 5.7 % [facility] - Microbiology an d Antimicrobial susceptibilityon 05-22-2023 HCV Ab IA Ql Not detected Not Detected [facility] Comment on above: Patients with DETECT ED Hepatitis C Ab results should have a new specimen submitted for supplemental testing with a Hepatitis C Quantitative RNA assay (viral load), if clinically indicated. Lipid 1996 panelon 3 Cholesterol [Mass/Vol] 118 mg/dL NINF - 200 mg/dL [facility] Cholesterol in HDL [Mass/Vol] 28 mg/dL Low 40 - 60 mg/dL [facility] Cholesterol in LDL [Mass/Vol] 61 mg/dL 0 - <100 [facility] Cholesterol.total/Chol esterol in HDL [Mass ratio] 4 {ratio} [facility] Comment on above: Ref Range: < 3 Low Risk for CHD 3-6 Mod Risk for CHD > 6 High Risk for CHD Triglyceride [Mass/Vol] 145 mg/dL NINF - 150 mg/dL [facility] No Panel Informationon 05-22 Interpretation and review of laboratory results Abnormal [facility] TSH Qnon 05-22-2023 Interpretation and review of laboratory results Abnormal [facility] CBCon 01-17-2022 Hematocrit (Bld) [Volume fraction] 47.7 % 40 - 52 % [facility] Hemoglobin (Bld) [Mass/Vol] 15.8 g/dL 13 - 18 g/dL [facility] MCH (RBC) [Entitic mass] 29.9 pg 26 - 34 pg [facility] MCHC (RBC) [Mass/Vol] 33.1 % 32 - 36 % [facility] MCV (RBC) [Entitic vol] 90.3 fL 80 - 98 fL [facility] Platelet distribution width (Bld) [Ratio] 13.9 % 11.5 - 14.5 % [facility] Platelet mean volume (Bld) [Entitic vol] 8.5 fL 7.4 - 12.4 fL [facility] Comment on above: MPV is a calculated measurement using platelet volume ratio. Platelets (Bld) [#/Vol] 227 10*3/uL 140 - 440 10*3/uL [facility] RBC (Bld) [#/Vol] 5.28 10*6/uL 4.4 - 5.9 10*6/uL [facility] WBC (Bld) [#/Vol] 6.8 10*3/uL 3.6 - 10.7 10*3/uL [facility] Test Performed by [id number] [place] [address] LAB [facility] Comp Metabolic Panelon 01-17 Calcium [Mass/Vol] 9.6 mg/dL Normal 8.4-10.4 [facility] Comment on above: Performed By: #### T SH5, CMP3, LIPD2, HEMOG #### [address] [address] ALP [Catalytic activity/Vol] 74 U/L Normal 38-126 [facility] Comment on above: Performed By: #### T SH5, CMP3, LIPD2, HEMOG #### [address] [address] ALT [Catalytic activity/Vol] 39 U/L Normal 0-49 [facility] Comment on above: Result Comment: The ALT test is performed by an updated assay method. Please note that the reference intervals have been changed and are now sex specific. Performed By: #### T SH5, CMP3, LIPD2, HEMOG #### [address] [place], [place] Anion gap [Moles/Vol] 10 mmol/L Normal 3-13 [facility] Comment on above: Performed By: #### T SH5, CMP3, LIPD2, HEMOG #### [address] [place], [place] AST [Catalytic activity/Vol] 33 U/L Normal 15-46 [facility] Comment on above: Performed By: #### T SH5, CMP3, LIPD2, HEMOG #### [address] [address] [place], [place] Bilirubin [Mass/Vol] 1.0 mg/dL Normal 0.2-1.3 [facility] Comment on above: Performed By: #### T SH5, CMP3, LIPD2, HEMOG #### [address] [place], [place] CO2 [Moles/Vol] 28 mmol/L Normal 22-30 [facility] Comment on above: Performed By: #### T SH5, CMP3, LIPD2, HEMOG #### [address] [place], [place] Creatinine [Mass/Vol] 0.72 mg/dL Normal 0.52-1.25 [facility] Comment on above: Performed By: #### T SH5, CMP3, LIPD2, HEMOG #### [address] [place], [place] eGFR OTHER > 90.0 Normal >60 [facility] Comment on above: Result Comment: KDIG O guidelines provide the following GFR categories: Stage GFR(ml/min/1.73 m2) Terms G1 >=90 Normal or high G2 60-89 Mildly decreased* G3a 45-59 Mildly to moderately decreased G3b 30-44 Moderately to severely decreased G4 15-29 Severely decreased G5 <15 Kidney failure *Relative to young adult level. In the absence of evidence of kidney damage, neither GFR category G1 nor G2 fulfill the criteria for CKD. The CKD-EPI equation is validated in individuals 18 years of age and older. Currently the best equation for estimating glomerular filtration rate (GFR) from serum creatinine in children is the Bedside Dumont equation. It is less accurate in patients with extremes of muscle mass, restriction of dietary protein, ingestion of creatine, extra-renal metabolism of creatinine, or treatment with medications that affect renal tubular creatinine secretion. Performed By: #### T SH5, CMP3, LIPD2, HEMOG #### [facility] [address] [place] [address] GFR/1.73 sq M.predicted among blacks MDRD (S/P/Bld) [Vol rate/Area] mL/min/{1.73_m2} Normal >60 [facility] Comment on above: Performed By: #### T SH5, CMP3, LIPD2, HEMOG #### [facility] [address] [place] [address] Glucose [Mass/Vol] 110 mg/dL High 70-100 [facility] Comment on above: Performed By: #### T SH5, CMP3, LIPD2, HEMOG #### [facility] [address] [place] [address] Protein [Mass/Vol] 8.2 g/dL Normal 6.3-8.2 [facility] Comment on above: Performed By: #### T SH5, CMP3, LIPD2, HEMOG #### [address] [place] [address] Urea nitrogen [Mass/Vol] 19 mg/dL High 7-17 [facility] Comment on above: Performed By: #### T SH5, CMP3, LIPD2, HEMOG #### [facility] [address] [place] [address] Potassium [Moles/Vol] 3.3 mmol/L Low 3.5-5.1 [facility] Comment on above: Performed By: #### T SH5, CMP3, LIPD2, HEMOG #### [facility] [address] [place] [address] Albumin [Mass/Vol] 4.6 g/dL Normal 3.5-5.0 [facility] Comment on above: Performed By: #### T SH5, CMP3, LIPD2, HEMOG #### [facility] [address] [place], [place] Chloride [Moles/Vol] 102 mmol/L Normal 98-107 [facility] Comment on above: Performed By: #### T SH5, CMP3, LIPD2, HEMOG #### [facility] [address] [place], [place] Sodium [Moles/Vol] 140 mmol/L Normal 135-145 [facility] Comment on above: Performed By: #### T SH5, CMP3, LIPD2, HEMOG #### [facility] [address] [place], [place] Comprehensive Metabolic Pane adriel 01-17-2022 Albumin [Mass/Vol] 4.6 g/dL 3.5 - 5 g/dL [facility] ALP (Bld) [Catalytic activity/Vol] 74 U/L 38 - 126 U/L [facility] ALT [Catalytic activity/Vol] 39 U/L 0 - 49 U/L [facility] Comment on above: The ALT test is perf ormed by an updated assay method. Please note that the reference intervals have been changed and are now sex specific. Anion gap [Moles/Vol] 10 mmol/L 3 - 13 mmol/L [facility] AST [Catalytic activity/Vol] 33 U/L 15 - 46 U/L [facility] Bilirubin [Mass/Vol] 1.0 mg/dL 0.2 - 1 .3 mg/dL [facility] Calcium [Mass/Vol] 9.6 mg/dL 8.4 - 10. 4 mg/dL [facility] Chloride [Moles/Vol] 102 mmol/L 98 - 10 7 mmol/L [facility] CO2 [Moles/Vol] 28 mmol/L 22 - 30 mmol/L [facility] Creatinine [Mass/Vol] 0.72 mg/dL 0.52 - 1.25 mg/dL [facility] eGFR mL/min 60 - P INF mL/min [facility] EGFR IF NonAfrican [place] mL/min 60 - PINF mL/min [facility] Comment on above: KDIGO guidelines pro vide the following GFR categories: Stage GFR(ml/min/1.73 m2) Terms G1 >=90 Normal or high G2 60-89 Mildly decreased* G3a 45-59 Mildly to moderately decreased G3b 30-44 Moderately to severely decreased G4 15-29 Severely decreased G5 <15 Kidney failure *Relative to young adult level. In the absence of evidence of kidney damage, neither GFR category G1 nor G2 fulfill the criteria for CKD. The CKD-EPI equation is validated in individuals 18 years of age and older. Currently the best equation for estimating glomerular filtration rate (GFR) from serum creatinine in children is the Bedside Dumont equation. It is less accurate in patients with extremes of muscle mass, restriction of dietary protein, ingestion of creatine, extra-renal metabolism of creatinine, or treatment with medications that affect renal tubular creatinine secretion. Free PSA/Total PSA [Mass fraction] 8.2 g/dL 6.3 - 8.2 g/dL [facility] Glucose [Mass/Vol] 110 mg/dL High 70 - 100 mg/dL [facility] Potassium [Moles/Vol] 3.3 mmol/L Low 3.5 - 5.1 mmol/L [facility] Sodium [Moles/Vol] 140 mmol/L 135 - 145 mmol/L [facility] Urea nitrogen (BldV) [Mass/Vol] 19 mg/dL High 7 - 17 mg/dL [facility] Hemogramon 01-17-2022 Erythrocyte distribution width (RBC) [Ratio] 13.9 % Normal 11.5-14.5 [facility] Comment on above: Performed By: #### T SH5, CMP3, LIPD2, HEMOG #### [address] [address] Hematocrit (Bld) [Volume fraction] 47.7 % Normal 40.0-52.0 [facility] Comment on above: Performed By: #### T SH5, CMP3, LIPD2, HEMOG #### [address] [address] Hemoglobin (Bld) [Mass/Vol] 15.8 g/dL Normal 13.0-18.0 [facility] Comment on above: Performed By: #### T SH5, CMP3, LIPD2, HEMOG #### [facility] [address] [place] [address] MCH (RBC) [Entitic mass] 29.9 pg Normal 26.0-34.0 [facility] Comment on above: Performed By: #### T SH5, CMP3, LIPD2, HEMOG #### [address] [place], [place] MCHC 33.1 % Normal 32.0-36.0 [facility] Comment on above: Performed By: #### T SH5, CMP3, LIPD2, HEMOG #### [address] [place], [place] MCV (RBC) [Entitic vol] 90.3 fL Normal 80.0-98.0 [facility] Comment on above: Performed By: #### T SH5, CMP3, LIPD2, HEMOG #### [address] [place], [place] Platelet mean volume (Bld) [Entitic vol] 8.5 fL Normal 7.4-12.4 [facility] Comment on above: Result Comment: MPV is a calculated measurement using platelet volume ratio. Performed By: #### T SH5, CMP3, LIPD2, HEMOG #### [address] [place], [place] Platelets (Bld) [#/Vol] 227 10*3/uL Normal 140-440 [facility] Comment on above: Performed By: #### T SH5, CMP3, LIPD2, HEMOG #### [address] [place], [place] RBC (Bld) [#/Vol] 5.28 10*6/uL Normal 4.40-5.90 [facility] Comment on above: Performed By: #### T SH5, CMP3, LIPD2, HEMOG #### [address] [place], [place] WBC (Bld) [#/Vol] 6.8 10*3/uL Normal 3.6-10.7 [facility] Comment on above: Performed By: #### T SH5, CMP3, LIPD2, HEMOG #### [address] [place], [place] Lipid Panelon 01-17-2022 Chol/HDL 4 Normal [facility] Comment on above: Result Comment: Ref Range: < 3 Low Risk for CHD 3-6 Mod Risk for CHD > 6 High Risk for CHD Performed By: #### T SH5, CMP3, LIPD2, HEMOG #### [facility] [address] [place] [address] Cholesterol in HDL [Mass/Vol] 30 mg/dL Low 40-60 [facility] Comment on above: Performed By: #### T SH5, CMP3, LIPD2, HEMOG #### [facility] [address] [place] [address] Low Density Lipoprotein 64 mg/dL Normal <100 [facility] Comment on above: Performed By: #### T SH5, CMP3, LIPD2, HEMOG #### [address] [address] [place] [address] Triglyceride [Mass/Vol] 96 mg/dL Normal <150 [facility] Comment on above: Performed By: #### T SH5, CMP3, LIPD2, HEMOG #### [facility] [address] [place] [address] Cholesterol [Mass/Vol] 113 mg/dL Normal < 200 [facility] Comment on above: Performed By: #### T SH5, CMP3, LIPD2, HEMOG #### [facility] [address] [place] [address] Cholesterol [Mass/Vol] 113 mg/dL NINF - 200 mg/dL [facility] Cholesterol in HDL [Mass/Vol] 30 mg/dL Low 40 - 60 mg/dL [facility] Cholesterol in LDL [Mass/Vol] 64 mg/dL NINF - 100 mg/dL [facility] Cholesterol.total/Chol esterol in HDL [Mass ratio] 4 {ratio} [facility] Comment on above: Ref Range: < 3 Low Risk for CHD 3-6 Mod Risk for CHD > 6 High Risk for CHD Triglyceride [Mass/Vol] 96 mg/dL NINF - 150 mg/dL [facility] No Panel Informationon 01-17 Interpretation and review of laboratory results Abnormal [facility] Test Performed by [facility], [address] [place], [place] [id number] [place] [address] LAB [facility] TSHon 01-17-2022 Interpretation and review of laboratory results Abnormal [facility] TSH Qn 0.062 u[IU]/mL Low 0.465 - 4.68 u[IU]/mL [facility] Test Performed by [facility], [address] [place] [address] [facility] Thyroid Stim. Hormoneon 12-31 Thyroid Stim. Hormone 0.062 u[IU]/mL Low 0.465-4.68 0 [facility] Comment on above: Performed By: #### T SH5, CMP3, LIPD2, HEMOG #### [address] [address] TSHon 09-27-2021 TSH Qn 0.873 u[IU]/mL 0.465 - 4.680 u[IU]/mL [facility] Test Performed by [facility], [address] [place] [address] [facility] Thyroid Stim. Hormoneon 09-01 Thyroid Stim. Hormone 0.873 u[IU]/mL Normal 0.465-4.68 0 [facility] Comment on above: Performed By: #### T SH5, CMP3, LIPD2, HEMOG #### [address] [address] Comp Metabolic Panelon 06-28 ALT [Catalytic activity/Vol] 45 U/L Normal 0-49 [facility] Comment on above: Result Comment: The ALT test is performed by an updated assay method. Please note that the reference intervals have been changed and are now sex specific. Performed By: #### T SH5, CMP3, LIPD2, HEMOG #### [address] Calcium [Mass/Vol] 9.9 mg/dL Normal 8.4-10.4 [facility] Comment on above: Performed By: #### T SH5, CMP3, LIPD2, HEMOG #### [address] [address] [place], [place] Glucose [Mass/Vol] 92 mg/dL Normal 70-100 [facility] Comment on above: Performed By: #### T SH5, CMP3, LIPD2, HEMOG #### [address] [place], [place] ALP [Catalytic activity/Vol] 60 U/L Normal 38-126 [facility] Comment on above: Performed By: #### T SH5, CMP3, LIPD2, HEMOG #### [address] [place], [place] Anion gap [Moles/Vol] 14 mmol/L High 3-13 [facility] Comment on above: Performed By: #### T SH5, CMP3, LIPD2, HEMOG #### [address] [place], [place] AST [Catalytic activity/Vol] 39 U/L Normal 15-46 [facility] Comment on above: Performed By: #### T SH5, CMP3, LIPD2, HEMOG #### [address] [place], [place] Bilirubin [Mass/Vol] 1.1 mg/dL Normal 0.2-1.3 [facility] Comment on above: Performed By: #### T SH5, CMP3, LIPD2, HEMOG #### [address] [place], [place] CO2 [Moles/Vol] 28 mmol/L Normal 22-30 [facility] Comment on above: Performed By: #### T SH5, CMP3, LIPD2, HEMOG #### [address] [place], [place] Creatinine [Mass/Vol] 0.87 mg/dL Normal 0.52-1.25 [facility] Comment on above: Performed By: #### T SH5, CMP3, LIPD2, HEMOG #### [address] [place], [place] eGFR OTHER > 90.0 Normal >60 [facility] Comment on above: Result Comment: KDIG O guidelines provide the following GFR categories: Stage GFR(ml/min/1.73 m2) Terms G1 >=90 Normal or high G2 60-89 Mildly decreased* G3a 45-59 Mildly to moderately decreased G3b 30-44 Moderately to severely decreased G4 15-29 Severely decreased G5 <15 Kidney failure *Relative to young adult level. In the absence of evidence of kidney damage, neither GFR category G1 nor G2 fulfill the criteria for CKD. The CKD-EPI equation is validated in individuals 18 years of age and older. Currently the best equation for estimating glomerular filtration rate (GFR) from serum creatinine in children is the Bedside Dumont equation. It is less accurate in patients with extremes of muscle mass, restriction of dietary protein, ingestion of creatine, extra-renal metabolism of creatinine, or treatment with medications that affect renal tubular creatinine secretion. Performed By: #### T SH5, CMP3, LIPD2, HEMOG #### [address] [phone] GFR/1.73 sq M.predicted among blacks MDRD (S/P/Bld) [Vol rate/Area] mL/min/{1.73_m2} Normal >60 [facility] Comment on above: Performed By: #### T SH5, CMP3, LIPD2, HEMOG #### [address] Protein [Mass/Vol] 8.2 g/dL Normal 6.3-8.2 [facility] Comment on above: Performed By: #### T SH5, CMP3, LIPD2, HEMOG #### [address] [address] Urea nitrogen [Mass/Vol] 16 mg/dL Normal 7-17 [facility] Comment on above: Performed By: #### T SH5, CMP3, LIPD2, HEMOG #### [address] Potassium [Moles/Vol] 3.4 mmol/L Low 3.5-5.1 [facility] Comment on above: Performed By: #### T SH5, CMP3, LIPD2, HEMOG #### [address] Sodium [Moles/Vol] 141 mmol/L Normal 135-145 [facility] Comment on above: Performed By: #### T SH5, CMP3, LIPD2, HEMOG #### [address] [address] [address] [place], [place] Albumin [Mass/Vol] 4.7 g/dL Normal 3.5-5.0 [facility] Comment on above: Performed By: #### T SH5, CMP3, LIPD2, HEMOG #### [address] [address] [address] [place], [place] Chloride [Moles/Vol] 99 mmol/L Normal 98-107 [facility] Comment on above: Performed By: #### T SH5, CMP3, LIPD2, HEMOG #### [address] [address] [address] [place], [place] Thyroid Stim. Hormoneon 06-03 Thyroid Stim. Hormone 31.755 u[IU]/mL High 0.465-4.6 80 [facility] Comment on above: Performed By: #### T SH5, CMP3, LIPD2, HEMOG #### [address] [address] [address] [place], [place] Vitamin B12on 06-28-2021 Cobalamin (Vitamin B12) [Mass/Vol] 332 pg/mL Normal 239-931 [facility] Comment on above: Performed By: #### T SH5, CMP3, LIPD2, HEMOG #### [address] [address] [address] [place], [place] CBCOrdered By: Rachel pardo on 02-08-2021 Hematocrit (Bld) [Volume fraction] 44.3 % 40.0 - 52.0 % [facility] Work Phone: Hemoglobin.gastrointes tinal spec 1 Ql (Stl) 14.7 g/dL 13.0 - 18.0 g/dL [facility] Work Phone: MCH (RBC) [Entitic mass] 30.7 pg 26.0 - 34.0 pg [facility] Work Phone: MCHC (RBC) [Mass/Vol] 33.2 % 32.0 - 36.0 % [facility] Work Phone: MCV (RBC) [Entitic vol] 92.5 fL 80.0 - 98.0 fL [employer] Work Phone: Platelet distribution width (Bld) [Ratio] 14.3 % 11.5 - 14.5 % [employer] Work Phone: Platelet mean volume (Bld) [Entitic vol] 8.8 fL 7.4 - 10.4 fL [employer] Work Phone: Platelets (Bld) [#/Vol] 186 10*3/uL 140 - 440 10*3/uL [facility] Work Phone: RBC (Bld) [#/Vol] 4.79 10*6/uL 4.40 - 5.9 0 10*6/uL [employer] Work Phone: WBC (Bld) [#/Vol] 6.6 10*3/uL 3.6 - 10.7 10*3/uL [employer] Work Phone: Test Performed by [facility], [address] [place] [id number] [place], [place] [address] Work Phone: [employer] Work Phone: Comp Metabolic Panelon 02-08 ALP [Catalytic activity/Vol] 65 U/L Normal 38-126 [facility] Comment on above: Performed By: #### F T4M, TSH5, LIPD2, HEMOG, CMP3 #### [facility] [place] [id number] ALT [Catalytic activity/Vol] 47 U/L Normal 0-49 [facility] Comment on above: Result Comment: The ALT test is performed by an updated assay method. Please note that the reference intervals have been changed and are now sex specific. Performed By: #### F T4M, TSH5, LIPD2, HEMOG, CMP3 #### [facility] [address] [place] [address] AST [Catalytic activity/Vol] 50 U/L High 15-46 [facility] Comment on above: Performed By: #### F T4M, TSH5, LIPD2, HEMOG, CMP3 #### [address] [place], [place] Bilirubin [Mass/Vol] 0.9 mg/dL Normal 0.2-1.3 [facility] Comment on above: Performed By: #### F T4M, TSH5, LIPD2, HEMOG, CMP3 #### [address] [place] Calcium [Mass/Vol] 9.5 mg/dL Normal 8.4-10.4 [facility] Comment on above: Performed By: #### F T4M, TSH5, LIPD2, HEMOG, CMP3 #### [address] [address] [address] [place], [place] Glucose [Mass/Vol] 100 mg/dL Normal 70-100 [facility] Comment on above: Performed By: #### F T4M, TSH5, LIPD2, HEMOG, CMP3 #### [address] [address] [place] Urea nitrogen [Mass/Vol] 20 mg/dL High 7-17 [facility] Comment on above: Performed By: #### F T4M, TSH5, LIPD2, HEMOG, CMP3 #### [address] [address] [place] Anion gap [Moles/Vol] 10 mmol/L Normal 3-13 [facility] Comment on above: Performed By: #### F T4M, TSH5, LIPD2, HEMOG, CMP3 #### [address] [address] [address] [place] CO2 [Moles/Vol] 29 mmol/L Normal 22-30 [facility] Comment on above: Performed By: #### F T4M, TSH5, LIPD2, HEMOG, CMP3 #### [address] [place] Creatinine [Mass/Vol] 0.80 mg/dL Normal 0.52-1.25 [facility] Comment on above: Performed By: #### F T4M, TSH5, LIPD2, HEMOG, CMP3 #### [address] [address] [address] [place] eGFR OTHER > 90.0 Normal >60 [facility] Comment on above: Result Comment: KDIG O guidelines provide the following GFR categories: Stage GFR(ml/min/1.73 m2) Terms G1 >=90 Normal or high G2 60-89 Mildly decreased* G3a 45-59 Mildly to moderately decreased G3b 30-44 Moderately to severely decreased G4 15-29 Severely decreased G5 <15 Kidney failure *Relative to young adult level. In the absence of evidence of kidney damage, neither GFR category G1 nor G2 fulfill the criteria for CKD. The CKD-EPI equation is validated in individuals 18 years of age and older. Currently the best equation for estimating glomerular filtration rate (GFR) from serum creatinine in children is the Bedside Dumont equation. It is less accurate in patients with extremes of muscle mass, restriction of dietary protein, ingestion of creatine, extra-renal metabolism of creatinine, or treatment with medications that affect renal tubular creatinine secretion. Performed By: #### F T4M, TSH5, LIPD2, HEMOG, CMP3 #### [address] [place] GFR/1.73 sq M.predicted among blacks MDRD (S/P/Bld) [Vol rate/Area] mL/min/{1.73_m2} Normal >60 [facility] Comment on above: Performed By: #### F T4M, TSH5, LIPD2, HEMOG, CMP3 #### [address] [address] [place] Protein [Mass/Vol] 8.0 g/dL Normal 6.3-8.2 [facility] Comment on above: Performed By: #### F T4M, TSH5, LIPD2, HEMOG, CMP3 #### [address] Potassium [Moles/Vol] 3.8 mmol/L Normal 3.5-5.1 [facility] Comment on above: Performed By: #### F T4M, TSH5, LIPD2, HEMOG, CMP3 #### [address] [address] [address] [place] Sodium [Moles/Vol] 140 mmol/L Normal 135-145 [facility] Comment on above: Performed By: #### F T4M, TSH5, LIPD2, HEMOG, CMP3 #### [facility] [address] [place], [place] Albumin [Mass/Vol] 4.6 g/dL Normal 3.5-5.0 [facility] Comment on above: Performed By: #### F T4M, TSH5, LIPD2, HEMOG, CMP3 #### [facility] [address] [place], [place] Chloride [Moles/Vol] 101 mmol/L Normal 98-107 [facility] Comment on above: Performed By: #### F T4M, TSH5, LIPD2, HEMOG, CMP3 #### [address] [address] [place], [place] Comprehensive Metabolic Pane lOrdered By: Rachel Rangel on 02-08-2021 Albumin [Mass/Vol] 4.6 g/dL 3.5 - 5.0 g/dL [facility] Work Phone: ALP (Bld) [Catalytic activity/Vol] 65 U/L 38 - 126 U/L [facility] Work Phone: ALT [Catalytic activity/Vol] 47 U/L 0 - 49 U/L [facility] Work Phone: Comment on above: The ALT test is perf ormed by an updated assay method. Please note that the reference intervals have been changed and are now sex specific. Anion gap [Moles/Vol] 10 mmol/L 3 - 13 mmol/L [facility] Work Phone: AST [Catalytic activity/Vol] 50 U/L High 15 - 46 U/L [facility] Work Phone: Bilirubin [Mass/Vol] 0.9 mg/dL 0.2 - 1 .3 mg/dL [facility] Work Phone: Calcium [Mass/Vol] 9.5 mg/dL 8.4 - 10. 4 mg/dL [facility] Work Phone: Chloride [Moles/Vol] 101 mmol/L 98 - 10 7 mmol/L [facility] Work Phone: CO2 [Moles/Vol] 29 mmol/L 22 - 30 mmol/L [facility] Work Phone: Creatinine [Mass/Vol] 0.8 mg/dL 0.52 - 1.25 mg/dL [facility] Work Phone: EGFR IF NonAfrican Belizean >90.0 >60 mL/min [facility] Work Phone: Comment on above: KDIGO guidelines pro vide the following GFR categories: Stage GFR(ml/min/1.73 m2) Terms G1 >=90 Normal or high G2 60-89 Mildly decreased* G3a 45-59 Mildly to moderately decreased G3b 30-44 Moderately to severely decreased G4 15-29 Severely decreased G5 <15 Kidney failure *Relative to young adult level. In the absence of evidence of kidney damage, neither GFR category G1 nor G2 fulfill the criteria for CKD. The CKD-EPI equation is validated in individuals 18 years of age and older. Currently the best equation for estimating glomerular filtration rate (GFR) from serum creatinine in children is the Bedside Dumont equation. It is less accurate in patients with extremes of muscle mass, restriction of dietary protein, ingestion of creatine, extra-renal metabolism of creatinine, or treatment with medications that affect renal tubular creatinine secretion. Free PSA/Total PSA [Mass fraction] 8.0 g/dL 6.3 - 8.2 g/dL [facility] Work Phone: GFR/1.73 sq M.predicted among blacks MDRD (S/P/Bld) [Vol rate/Area] mL/min/{1.73_m2} >60 mL/min [facility] Work Phone: Glucose [Mass/Vol] 100 mg/dL 70 - 100 mg/dL [facility] Work Phone: Potassium [Moles/Vol] 3.8 mmol/L 3.5 - 5.1 mmol/L [facility] Work Phone: Sodium [Moles/Vol] 140 mmol/L 135 - 145 mmol/L [employer] Work Phone: Urea nitrogen (BldV) [Mass/Vol] 20 mg/dL High 7 - 17 mg/dL [facility] Work Phone: Free T4on 02-08-2021 Free T4 [Mass/Vol] 1.01 ng/dL Normal 0.78-2.19 [facility] Comment on above: Performed By: #### F T4M, TSH5, LIPD2, HEMOG, CMP3 #### [address] [address] [address] [place], [place] Hemogramon 02-08-2021 Erythrocyte distribution width (RBC) [Ratio] 14.3 % Normal 11.5-14.5 [facility] Comment on above: Performed By: #### F T4M, TSH5, LIPD2, HEMOG, CMP3 #### [address] [address] [place], [place] Hematocrit (Bld) [Volume fraction] 44.3 % Normal 40.0-52.0 [facility] Comment on above: Performed By: #### F T4M, TSH5, LIPD2, HEMOG, CMP3 #### [address] [place] Hemoglobin (Bld) [Mass/Vol] 14.7 g/dL Normal 13.0-18.0 [facility] Comment on above: Performed By: #### F T4M, TSH5, LIPD2, HEMOG, CMP3 #### [address] [place], [place] MCH (RBC) [Entitic mass] 30.7 pg Normal 26.0-34.0 [facility] Comment on above: Performed By: #### F T4M, TSH5, LIPD2, HEMOG, CMP3 #### [address] [address] [place] MCHC 33.2 % Normal 32.0-36.0 [facility] Comment on above: Performed By: #### F T4M, TSH5, LIPD2, HEMOG, CMP3 #### [address] [place] MCV (RBC) [Entitic vol] 92.5 fL Normal 80.0-98.0 [facility] Comment on above: Performed By: #### F T4M, TSH5, LIPD2, HEMOG, CMP3 #### [address] [place] Platelet mean volume (Bld) [Entitic vol] 8.8 fL Normal 7.4-10.4 [facility] Comment on above: Performed By: #### F T4M, TSH5, LIPD2, HEMOG, CMP3 #### [facility] [address] [place], [place] Platelets (Bld) [#/Vol] 186 10*3/uL Normal 140-440 [facility] Comment on above: Performed By: #### F T4M, TSH5, LIPD2, HEMOG, CMP3 #### [address] [place] RBC (Bld) [#/Vol] 4.79 10*6/uL Normal 4.40-5.90 [facility] Comment on above: Performed By: #### F T4M, TSH5, LIPD2, HEMOG, CMP3 #### [address] [place] WBC (Bld) [#/Vol] 6.6 10*3/uL Normal 3.6-10.7 [facility] Comment on above: Performed By: #### F T4M, TSH5, LIPD2, HEMOG, CMP3 #### [address] [place], [place] Lipid Panelon 02-08-2021 Chol/HDL 4 Normal [facility] Comment on above: Result Comment: Ref Range: < 3 Low Risk for CHD 3-6 Mod Risk for CHD > 6 High Risk for CHD Performed By: #### F T4M, TSH5, LIPD2, HEMOG, CMP3 #### [address] [address] [place], [place] Cholesterol in HDL [Mass/Vol] 35 mg/dL Low 40-60 [facility] Comment on above: Performed By: #### F T4M, TSH5, LIPD2, HEMOG, CMP3 #### [address] [place] [address] Low Density Lipoprotein 99 mg/dL Normal <100 [facility] Comment on above: Performed By: #### F T4M, TSH5, LIPD2, HEMOG, CMP3 #### [facility] [address] [place] [address] Triglyceride [Mass/Vol] 103 mg/dL Normal <150 [facility] Comment on above: Performed By: #### F T4M, TSH5, LIPD2, HEMOG, CMP3 #### [facility] [address] [place] [address] Cholesterol [Mass/Vol] 155 mg/dL Normal < 200 [facility] Comment on above: Performed By: #### F T4M, TSH5, LIPD2, HEMOG, CMP3 #### [facility] [address] [place] [address] Lipid PanelOrdered By: Latasha Rangel on 02-08-2021 Cholesterol [Mass/Vol] 155 mg/dL <200 [facility] Work Phone: Cholesterol in HDL [Mass/Vol] 35 mg/dL Low 40 - 60 mg/dL [facility] Work Phone: Cholesterol in LDL [Mass/Vol] 99 mg/dL <100 [facility] Work Phone: Cholesterol.total/Chol esterol in HDL [Mass ratio] 4 {ratio} [facility] Work Phone: Comment on above: Ref Range: < 3 Low Risk for CHD 3-6 Mod Risk for CHD > 6 High Risk for CHD Triglyceride [Mass/Vol] 103 mg/dL <150 [facility] Work Phone: Microalbumin / Creatinine Ur ine RatioOrdered By: Rachel Rangel on 02-08-2021 Albumin/Creatinine DL <= 20 mg/L (24H U) [Mass ratio] 29.5 mg/L 0.0 - 29.9 mg/L [facility] Work Phone: Comment on above: Microalbumin concent rations <30 are considered normal, 30-300 are considered microalbuminuria (or risk of diabetic nephropathy), and >300 are considered clinical albuminuria (clinical nephropathy). Diabetes Care,27, Supplement 1, [id number] Albumin/Creatinine DL <= 20 mg/L (U) [Ratio] 18.1 mg/g 0.0 - 29.9 mg/g [facility] Work Phone: Creatinine (U) [Mass/Vol] 163.4 mg/dL No Range [facility] Work Phone: Test Performed by [facility] [employer] [facility], [address] [place] [id number] [facility] Work Phone: [facility] Work Phone: Microalbumin/Creat Ratioon 0 02-08-2021 Microalb/Creat Ratio 18.1 mg/g Normal 0.0-29.9 [facility] Comment on above: Performed By: #### M ACR5 #### [facility] [employer] [address] [phone] Microalbumin, Ur 29.5 mg/L Normal 0.0-29.9 [facility] Comment on above: Result Comment: Micr oalbumin concentrations <30 are considered normal, 30-300 are considered microalbuminuria (or risk of diabetic nephropathy), and >300 are considered clinical albuminuria (clinical nephropathy). Diabetes Care,27, Supplement 1, [id number] Performed By: #### M ACR5 #### [facility] [employer] [address] [address] [place] [address] Creatinine, Ur Random 163.4 mg/dL Normal No Range [facility] Comment on above: Performed By: #### M ACR5 #### [facility] [address] [place] [phone] No Panel InformationOrdered By: Rachel Rangel on 02-08-2021 Interpretation and review of laboratory results Abnormal [facility] Work Phone: Test Performed by [facility], [address] [place] [id number] [facility] Work Phone: [facility] Work Phone: T4, FreeOrdered By: Mecca Rangel on 02-08-2021 Free T4 [Mass/Vol] 1.01 ng/dL 0.78 - 2. 19 ng/dL [employer] Work Phone: Test Performed by [employer], [address] [place] [id number] [employer] Work Phone: [facility] Work Phone: TSH without ReflexOrdered By : Rachel Rangel on 02-08-2021 Interpretation and review of laboratory results Abnormal [facility] Work Phone: TSH Qn 33.485 u[IU]/mL High 0.465 - 4.680 u[IU]/mL [facility] Work Phone: Test Performed by [employer], [address] [place] [id number] [employer] Work Phone: [employer] Work Phone: Thyroid Stim. Hormoneon 09-0 Thyroid Stim. Hormone 33.485 u[IU]/mL High 0.465-4.6 [address] [employer] Comment on above: Performed By: #### F T4M, TSH5, LIPD2, HEMOG, CMP3 #### [employer] [address] [place] [phone] ED NOTEon 01-21-2021 ED NOTE HNO ID: [id number] Author: Ganga Benavidez RN Service: Nursing Author Type: Registered Nurse Type: ED Notes Filed: 01/21/2021 12:50 AM Note Text: See initial chief complaint note. Normal [facility] ED PROV NOTEon 01-21-2021 ED PROV NOTE HNO ID: [id number] Author: Cydney Hooper DO Service: Emergency Medicine Author Type: Physician Type: ED Provider Notes Filed: 01/21/2021 7:48 AM Note Text: ED Provider Note Patient Name: Luis Espino SERVICE DATE: 01/21/21 History Patient presents with: Cough: tested positive for COVID. Got results. States pulse ox was low at home (92% room air). was concerned about pulse ox and asked her to come here. Lung sounds clear all delgado. productive cough, clear phlegn. sinus congestion. 60-year-old male with past medical history significant for CVA, diabetes, hyperlipidemia, hypertension, hypothyroidism and depression presenting for concern of hypoxia in the setting of known COVID-19 infection. Patient reports he and his family members were diagnosed with COVID-19 yesterday, patient is on day 6 of symptoms. He reports fatigue with loss of taste and smell but denies shortness of breath with activity or at rest. No chest pain. Patient reports that his is very concerned regarding his health as he has multiple comorbidities, has been checking his oxygen saturation with a home pulse oximeter and noted that it was 92% today. She became alarmed instructed him to be evaluated in the emergency department. The patient is currently asymptomatic at this time. He denies history of COPD or lung disease?he is a non-smoker. He denies pleuritic pain, persistent cough, sputum production, fever, chills, leg swelling. PAST MEDICAL HISTORY Diagnosis Date - Depression - Diabetes (HCC) - Hyperlipidemia - Hypertension - Hypothyroidism - Stroke (HCC) PAST SURGICAL HISTORY Procedure Laterality Date - BYPASS GRAFT OTHR,CAROTID Carotid Endarectomy No family history on file. Social History Tobacco Use - Smoking status: Former Smoker Quit date: 06/2017 Years since quittin.6 - Smokeless tobacco: Never Used Substance and Sexual Activity - Alcohol use: Yes Comment: rare - Drug use: Never - Sexual activity: Not on file ALLERGIES Allergen Reactions - Penicillins Unknown Review of Systems Constitutional: Positive for fatigue. Negative for chills and fever. Loss of taste and smell HENT: Negative for congestion, rhinorrhea, sinus pressure and sore throat. Eyes: Negative for photophobia and visual disturbance. Respiratory: Negative for cough, chest tightness, shortness of breath and wheezing. Cardiovascular: Negative for chest pain, palpitations and leg swelling. Gastrointestinal: Negative for abdominal distention, abdominal pain, constipation, diarrhea, nausea and vomiting. Genitourinary: Negative for decreased urine volume, difficulty urinating, dysuria, frequency, hematuria and urgency. Musculoskeletal: Negative for arthralgias, back pain, myalgias and neck pain. Skin: Negative for color change and rash. Allergic/Immunologic: Positive for immunocompromised state (Diabetic). Neurological: Negative for dizziness, weakness, light-headedness and headaches. Psychiatric/Behavioral: Negative for agitation and confusion. Physical Exam BP 119/74 Pulse 70 Temp (Src) 98.1 (Oral) Resp 20 Ht 5' 10 (1.78m) Wt 280 lb (127.0kg) SpO2 94[93-98 room air.]% BMI 40.18 kg/(m2). Physical Exam Vitals and nursing note reviewed. Constitutional: General: He is not in acute distress. Appearance: He is well-developed. He is obese. He is not ill-appearing or diaphoretic. Comments: Well-appearing middle-aged male?no acute distress. Afebrile and hemodynamically stable, no evidence of respiratory compromise or increased respiratory effort. Airway intact. HENT: Head: Normocephalic and atraumatic. Right Ear: External ear normal. Left Ear: External ear normal. Nose: Nose normal. Mouth/Throat: Pharynx: No oropharyngeal exudate. Eyes: General: Right eye: No discharge. Left eye: No discharge. Conjunctiva/sclera: Conjunctivae normal. Pupils: Pupils are equal, round, and reactive to light. Cardiovascular: Rate and Rhythm: Normal rate and regular rhythm. Pulses: Radial pulses are 2+ on the right side and 2+ on the left side. Dorsalis pedis pulses are 2+ on the right side and 2+ on the left side. Heart sounds: Normal heart sounds. No murmur heard. Pulmonary: Effort: Pulmonary effort is normal. No tachypnea, accessory muscle usage, prolonged expiration, respiratory distress or retractions. Breath sounds: Normal breath sounds. No decreased air movement or transmitted upper airway sounds. No decreased breath sounds, wheezing or rales. Comments: No evidence of tachypnea or increased respiratory effort. No retractions. Patient's pulse oximeter is 94% on room air, with exertion and ambulation throughout the room the patient's pulse ox dropped to 92% but the patient denies any shortness of breath or distress. Chest: Chest wall: No tenderness. Abdominal: General: Bowel sounds are normal. T (more content not included)... Normal [facility] Comprehensive Metabolic Pane adriel 05-18-2020 Albumin [Mass/Vol] 4.7 g/dL 3.5 - 5 g/dL [place], [place] ALP [Catalytic activity/Vol] 60 U/L 38 - 126 U/L [place], [place] ALT [Catalytic activity/Vol] 63 U/L High 0 - 49 U/L [place] Comment on above: The ALT test is perf ormed by an updated assay method. Please note that the reference intervals have been changed and are now sex specific. Anion gap [Moles/Vol] 9 mmol/L [place], [place] AST [Catalytic activity/Vol] 60 U/L High 15 - 46 U/L [place] Bilirubin Ql (U) 1.1 mg/dL 0.2 - 1.3 mg/dL [place] Calcium [Mass/Vol] 9.7 mg/dL 8.4 - 10. 4 mg/dL [place] Chloride [Moles/Vol] 97 mmol/L Low 98 - 10 7 mmol/L [place] CO2 [Moles/Vol] 35 mmol/L High 22 - 30 mmol/L [place] Creatinine [Mass/Vol] 1.11 mg/dL 0.52 - 1.25 mg/dL [place] EGFR IF NonAfrican [place] 71.3 mL/min >60 [place] Comment on above: KDIGO guidelines pro vide the following GFR categories: Stage GFR(ml/min/1.73 m2) Terms G1 >=90 Normal or high G2 60-89 Mildly decreased* G3a 45-59 Mildly to moderately decreased G3b 30-44 Moderately to severely decreased G4 15-29 Severely decreased G5 <15 Kidney failure *Relative to young adult level. In the absence of evidence of kidney damage, neither GFR category G1 nor G2 fulfill the criteria for CKD. The CKD-EPI equation is validated in individuals 18 years of age and older. Currently the best equation for estimating glomerular filtration rate (GFR) from serum creatinine in children is the Bedside Dumont equation. It is less accurate in patients with extremes of muscle mass, restriction of dietary protein, ingestion of creatine, extra-renal metabolism of creatinine, or treatment with medications that affect renal tubular creatinine secretion. GFR/1.73 sq M predicted among blacks MDRD (S/P/Bld) [Vol rate/Area] 82.6 mL/min/{1.73_m2} >60 [place], [place] Glucose [Mass/Vol] 156 mg/dL High 70 - 100 mg/dL [place] Interpretation and review of laboratory results Abnormal [place] Potassium [Moles/Vol] 3.9 mmol/L 3.5 - 5.1 mmol/L [place] Protein [Mass/Vol] 8.3 g/dL High 6.3 - 8.2 g/dL [place] Sodium [Moles/Vol] 141 mmol/L 135 - 145 mmol/L [place] Urea nitrogen [Mass/Vol] 19 mg/dL 7 - 20 mg/dL [place] Test Performed by [facility], [address] [place] [id number] [place] [address] T4, Freeon 05-18-2020 Free T4 [Mass/Vol] 0.1 ng/dL Low 0.78 - 2. 19 ng/dL [place], [place] Interpretation and review of laboratory results Abnormal [place] Test Performed by [facility], [facility] [place], [place] [id number] [place] [address] TSH without Reflexon 020 Interpretation and review of laboratory results Abnormal [place] TSH Qn 119.536 u[IU]/mL High 0.465 - 4.6 8 u[IU]/mL [place] Test Performed by [facility], [facility] [place] [address] [place], [place] CBCon 01-13-2020 Erythrocyte distribution width (RBC) [Ratio] 15.2 % High 11.5 - 14.5 % [place] Hematocrit (Bld) [Volume fraction] 46.6 % 40 - 52 % [place] Hemoglobin (Bld) [Mass/Vol] 15.7 g/dL 13 - 18 g/dL [place] Interpretation and review of laboratory results Abnormal [place] MCH (RBC) [Entitic mass] 31.8 pg 26 - 34 pg [place] MCHC (RBC) [Mass/Vol] 33.8 % 32 - 36 % [place] MCV (RBC) [Entitic vol] 94.1 fL 80 - 98 fL [place] Platelet mean volume (Bld) [Entitic vol] 9.1 fL 7.4 - 10.4 fL [place] Platelets (Bld) [#/Vol] 218 10*3/uL 140 - 440 10*3/uL [place] RBC (Bld) [#/Vol] 4.96 10*6/uL 4.4 - 5.9 10*6/uL [place] WBC (Bld) [#/Vol] 7.1 10*3/uL 3.6 - 10.7 10*3/uL [place] Test Performed by [facility], [address] [place] [address] [place] Comprehensive Metabolic Pane adriel 01-13-2020 Albumin [Mass/Vol] 4.5 g/dL 3.5 - 5 g/dL [place] ALP [Catalytic activity/Vol] 66 U/L 38 - 126 U/L [place] ALT [Catalytic activity/Vol] 79 U/L High 0 - 49 U/L [place] Comment on above: The ALT test is perf ormed by an updated assay method. Please note that the reference intervals have been changed and are now sex specific. Anion gap [Moles/Vol] 9 mmol/L [place] AST [Catalytic activity/Vol] 59 U/L High 15 - 46 U/L [place] Bilirubin Ql (U) 1.0 mg/dL 0.2 - 1.3 mg/dL [place] Calcium [Mass/Vol] 9.6 mg/dL 8.4 - 10. 4 mg/dL [place] Chloride [Moles/Vol] 96 mmol/L Low 98 - 10 7 mmol/L [place] CO2 [Moles/Vol] 32 mmol/L High 22 - 30 mmol/L [place] Creatinine [Mass/Vol] 1.03 mg/dL 0.52 - 1.25 mg/dL [place] EGFR IF NonAfrican [place] 78.2 mL/min >60 [place] Comment on above: KDIGO guidelines pro vide the following GFR categories: Stage GFR(ml/min/1.73 m2) Terms G1 >=90 Normal or high G2 60-89 Mildly decreased* G3a 45-59 Mildly to moderately decreased G3b 30-44 Moderately to severely decreased G4 15-29 Severely decreased G5 <15 Kidney failure *Relative to young adult level. In the absence of evidence of kidney damage, neither GFR category G1 nor G2 fulfill the criteria for CKD. The CKD-EPI equation is validated in individuals 18 years of age and older. Currently the best equation for estimating glomerular filtration rate (GFR) from serum creatinine in children is the Bedside Dumont equation. It is less accurate in patients with extremes of muscle mass, restriction of dietary protein, ingestion of creatine, extra-renal metabolism of creatinine, or treatment with medications that affect renal tubular creatinine secretion. GFR/1.73 sq M predicted among blacks MDRD (S/P/Bld) [Vol rate/Area] mL/min/{1.73_m2} >60 mL/min [place] Glucose [Mass/Vol] 139 mg/dL High 70 - 100 mg/dL [place] Potassium [Moles/Vol] 4.2 mmol/L 3.5 - 5.1 mmol/L [place] Protein [Mass/Vol] 7.9 g/dL 6.3 - 8.2 g/dL [place] Sodium [Moles/Vol] 138 mmol/L 135 - 145 mmol/L [place] Urea nitrogen [Mass/Vol] 15 mg/dL 7 - 20 mg/dL [place] Lipid Panelon 01-13-2020 Cholesterol [Mass/Vol] 198 mg/dL <200 [place], [place] Cholesterol in HDL [Mass/Vol] 37 mg/dL Low 40 - 60 mg/dL [place] Cholesterol in LDL [Mass/Vol] 130 mg/dL Abnormal <100 [place] Cholesterol.total/Chol esterol in HDL [Mass ratio] 5 {ratio} [place] Comment on above: Ref Range: < 3 Low Risk for CHD 3-6 Mod Risk for CHD > 6 High Risk for CHD Triglyceride [Mass/Vol] 157 mg/dL Abnormal <150 [place] Otheron 01-13-2020 Interpretation and review of laboratory results [facility]normal [facility] Performed by [facility], [address] [place] [address] [facility] TSH without Reflexon 020 Interpretation and review of laboratory results Abnormal [facility] TSH Qn 83.661 u[IU]/mL High 0.465 - 4.68 u[IU]/mL [facility] Test Performed by [facility], [address], [place] [address] [facility] CHEST STANDARD (2 VW)Orde red By: Josefa Acuna on 06-07-2019 Patient Name: TAMIKO REED ---Diagnostic Radiology--- Exam Date/Time 06/07/2019 14:03:56 EST Exam CR Chest PA/LAT Ordering Physician COLT, MSN,ACNP,COMPENSATION ADJUSTERJOSEFA Accession Number [id number] CPT4 Codes 97375 () Reason For Exam pneumonia Report Chest PA and lateral 06/07/2019. Clinical Information: Pneumonia. Findings: PA and attempted lateral views of the chest were obtained. No prior studies for comparison. The trachea is midline. The heart and mediastinal structures are unremarkable. No focal areas of consolidation or volume loss are seen. There are no pleural effusions. The lungs are somewhat hyperinflated with a coarsening of the interstitial markings suggestive of underlying obstructive lung disease. The visualized bony structures are intact. Impression: Chronic obstructive pulmonary disease without evidence of superimposed cardiopulmonary process. Report Dictated on --- Final --- Dictated: 06/07/2019 2:31 pm Dictating Physician: MD ROBLERO RISA Signed Date and Time: 06/07/2019 2:32 pm Signed by: MD ROBLERO RISA Transcribed Date and Time: 06/07/2019 2:31 [facility] Work Phone: [facility] Incoming Rad[facility] Results From [facility] - 06/07/2019 2:33 PM EST Patient Name: TAMIKO ESPINO ---Diagnostic Radiology--- Exam Date/Time 06/07/2019 14:03:56 EST Exam CR Chest PA/LAT Ordering Physician COLT, MSN,ACNP,COMPENSATION ADJUSTER, JOSEFA Accession Number [id number] CPT4 Codes 37436 () Reason For Exam pneumonia Report Chest PA and lateral 06/07/2019. Clinical Information: Pneumonia. Findings: PA and attempted lateral views of the chest were obtained. No prior studies for comparison. The trachea is midline. The heart and mediastinal structures are unremarkable. No focal areas of consolidation or volume loss are seen. There are no pleural effusions. The lungs are somewhat hyperinflated with a coarsening of the interstitial markings suggestive of underlying obstructive lung disease. The visualized bony structures are intact. Impression: Chronic obstructive pulmonary disease without evidence of superimposed cardiopulmonary process. Report Dictated on --- Final --- Dictated: 06/07/2019 2:31 pm Dictating Physician: MD ROBLERO RISA Signed Date and Time: 06/07/2019 2:32 pm Signed by: MD ROBLERO RISA Transcribed Date and Time: 06/07/2019 2:31 [facility] Work Phone: Influenza A and B by PCRon 0 2019 Influenza A by PCR Negative Normal Negative [facility] Comment on above: Performed By: #### S FLU #### [place] [address] Influenza B by PCR Negative Normal Negative [facility] Comment on above: Performed By: #### S FLU #### [place] [address] XR CHEST 2V FRONTAL/LATon XR CHEST 2V FRONTAL/LAT * * *Final Report* * * DATE OF EXAM: 2019 1:20PM ANX 5291 - XR CHEST 2V FRONTAL/LAT / PROCEDURE REASON: Cough, new onset * * * * Physician Interpretation * * * * EXAMINATION: CHEST RADIOGRAPH (2 VIEW FRONTAL & LATERAL) CLINICAL HISTORY: Cough, new onset MQ: XC2_5 Comparison: None RESULT: Lines, tubes, and devices: None. Lungs and pleura: Right lower lobe infiltrate most compatible with pneumonia. The lungs are otherwise clear. No pleural effusion. Cardiomediastinal silhouette: Normal cardiomediastinal silhouette. Other: No acute bony abnormality. IMPRESSION: Right lower lobe pneumonia. Follow-up until resolution. Shipping Supervisor: PSCB Transcribe Date/Time: 2019 1:52P Dictated by : OSCAR RODRIGUEZ MD This examination was interpreted and the report reviewed and electronically signed by: OSCAR RODRIGUEZ MD on 2019 1:54PM EST Normal [facility] Lipid PanelOrdered By: Osmar Justice on 05-11-2019 Cholesterol [Mass/Vol] 144 mg/dL <200 [employer] Work Phone: Cholesterol in HDL [Mass/Vol] 27 mg/dL Low 40 - 60 mg/dL [facility] Work Phone: Cholesterol in LDL [Mass/Vol] 78 mg/dL <100 [facility] Work Phone: Cholesterol.total/Chol esterol in HDL [Mass ratio] 5 {ratio} [facility] Work Phone: Comment on above: Ref Range: < 3 Low Risk for CHD 3-6 Mod Risk for CHD > 6 High Risk for CHD Interpretation and review of laboratory results Abnormal [facility] Work Phone: Triglyceride [Mass/Vol] 193 mg/dL Abnormal <150 [facility] Work Phone: Test Performed by [facility], [address] [place] [address] [facility] Work Phone: TSH without Reflexon 019 Interpretation and review of laboratory results Abnormal [place] TSH Qn 72.295 u[IU]/mL High 0.465 - 4.68 u[IU]/mL [place] Test Performed by [facility], [facility] [address] [address] [place] XR ANKLE 3V AP/LAT/OBL LTon 04-15-2019 XR ANKLE 3V AP/LAT/OBL LT * * *Final Report* * * DATE OF EXAM: Apr 15 2019 3:12PM ANX 5298 - XR ANKLE 3V AP/LAT/OBL LT / PROCEDURE REASON: Ankle pain, initial exam * * * * Physician Interpretation * * * * EXAMINATION: XR ANKLE 3V AP/LAT/OBL LT CLINICAL HISTORY: Ankle pain Technique: 3 views of the left ankle performed Comparison: None RESULT: No acute fracture or dislocation. Ankle mortise is maintained No significant degenerative changes. No suspicious osseous lesions. Unremarkable soft tissue. IMPRESSION: No acute findings in the left ankle Shipping Supervisor: OPAL Transcribe Date/Time: Apr 15 2019 3:12P Dictated by : MARY JANE SMITH MD This examination was interpreted and the report reviewed and electronically signed by: MARY JANE SMITH MD on Apr 15 2019 3:13PM EST Normal [facility] CBC Auto Differentialon 09-0 Absolute Baso # 0.1 10*3/uL 0 - 0.2 10*3/uL [place] Absolute Neut # 2.9 10*3/uL 1.8 - 7 10*3/uL [place] Basophils/100 WBC (Bld) 1.9 % 0 - 2 % [place] Eosinophils (Bld) [#/Vol] 0.4 10*3/uL 0 - 0.5 10*3/uL [place] Eosinophils/100 WBC (Bld) 6.1 % High 1 - 6 % [place] Erythrocyte distribution width (RBC) [Ratio] 14.3 % 11.5 - 14.5 % [place] Granulocytes/100 WBC (Bld) 49.7 % 40 - 80 % [place] Hematocrit (Bld) [Volume fraction] 44.1 % 40 - 52 % [place] Hemoglobin (Bld) [Mass/Vol] 15.4 g/dL 13 - 18 g/dL [place] Interpretation and review of laboratory results Abnormal [place] Lymphocytes (Bld) [#/Vol] 2.0 10*3/uL 1 - 4.3 10*3/uL [place] Lymphocytes/100 WBC (Bld) 34.8 % 20 - 40 % [place] MCH (RBC) [Entitic mass] 32.1 pg 26 - 34 pg [place] MCHC (RBC) [Mass/Vol] 34.9 % 32 - 36 % [place] MCV (RBC) [Entitic vol] 92.1 fL 80 - 98 fL [place] Monocytes (Bld) [#/Vol] 0.4 10*3/uL 0 - 0.8 10*3/uL [place] Monocytes/100 WBC (Bld) 7.5 % 2 - 10 % [place] Platelet mean volume (Bld) [Entitic vol] 9.3 fL 7.4 - 10.4 fL [place] Platelets (Bld) [#/Vol] 175 10*3/uL 140 - 440 10*3/uL [place] RBC (Bld) [#/Vol] 4.78 10*6/uL 4.4 - 5.9 10*6/uL [place] WBC (Bld) [#/Vol] 5.8 10*3/uL 3.6 - 10.7 10*3/uL [place] Test Performed by [id number] [place] [address] Comprehensive Metabolic Pane adriel 02-04-2019 Albumin [Mass/Vol] 4.5 g/dL 3.5 - 5 g/dL [place] ALP [Catalytic activity/Vol] 68 U/L 38 - 126 U/L [place] ALT [Catalytic activity/Vol] 64 U/L 13 - 69 U/L [place] Anion gap [Moles/Vol] 10 mmol/L [place] AST [Catalytic activity/Vol] 61 U/L High 15 - 46 U/L [place] Bilirubin Ql (U) 1.1 mg/dL 0.2 - 1.3 mg/dL [place] Calcium [Mass/Vol] 9.6 mg/dL 8.4 - 10. 4 mg/dL [place] Chloride [Moles/Vol] 98 mmol/L 98 - 10 7 mmol/L [place] CO2 [Moles/Vol] 32 mmol/L High 22 - 30 mmol/L [place] Creatinine [Mass/Vol] 0.78 mg/dL 0.52 - 1.25 mg/dL [place] EGFR IF NonAfrican [place] >60.0 >60 mL/min [place] Comment on above: Source- MDRD equatio n with creatinine calibration to IDMS(NKDEP) eGFR not recommended for drug dose adjustment GFR/1.73 sq M predicted among blacks MDRD (S/P/Bld) [Vol rate/Area] mL/min/{1.73_m2} >60 mL/min [place] Glucose [Mass/Vol] 302 mg/dL High 70 - 100 mg/dL [place] Potassium [Moles/Vol] 3.8 mmol/L 3.5 - 5.1 mmol/L [place] Protein [Mass/Vol] 7.6 g/dL 6.3 - 8.2 g/dL [place] Sodium [Moles/Vol] 140 mmol/L 135 - 145 mmol/L [place] Urea nitrogen [Mass/Vol] 12 mg/dL 7 - 20 mg/dL [place] Lipid Panelon 02-04-2019 Cholesterol [Mass/Vol] 168 mg/dL <200 [place] Cholesterol in HDL [Mass/Vol] 34 mg/dL Low 40 - 60 mg/dL [place] Cholesterol in LDL [Mass/Vol] 109 mg/dL Abnormal <100 [place] Cholesterol.total/Chol esterol in HDL [Mass ratio] 5 {ratio} [place] Comment on above: Ref Range: < 3 Low Risk for CHD 3-6 Mod Risk for CHD > 6 High Risk for CHD Triglyceride [Mass/Vol] 126 mg/dL <150 [place] Microalbumin / Creatinine Ur ine Ratioon 02-04-2019 Albumin/Creatinine DL <= 20 mg/L (24H U) [Mass ratio] 23.1 mg/L High 0 - 17 mg/L [place] Comment on above: Microalbumin concent rations <30 are considered normal, 30-300 are considered microalbuminuria (or risk of diabetic nephropathy), and >300 are considered clinical albuminuria (clinical nephropathy). Diabetes Care,27, Supplement 1, L14-03, 2004 Albumin/Creatinine DL <= 20 mg/L (U) [Ratio] 33 mg/g High 0 - 29.9 mg/g [facility] Creatinine (U) [Mass/Vol] 70.1 mg/dL No Range [facility] [employer] NDT[facility]MY Interpretation and review of laboratory results Abnormal [facility] [employer] NDTAMMY Test Performed by [facility], [address] [place] [address] [facility] Otheron 02-04-2019 Interpretation and review of laboratory results Abnormal [facility] [employer] [facility] Test Performed by [facility], [address] [place] [address] [facility] TAMMY TSH without Reflexon 019 Interpretation and review of laboratory results Abnormal [facility] [employer] TAMMY TSH Qn 76.560 u[IU]/mL High 0.465 - 4.68 u[IU]/mL [facility] [employer] [facility] Test Performed by [employer] [facility], [address] [place] [address] [facility]MY Vital Signs Date Time Vital Sign Value Performing Clinician Yo mcgill 12-23-2024 10:56-0400 Body height 180.3 cm Ben GeorgeFaceFirst [employer] Work Phone: [employer] 12-23-2024 10:56-0400 Body mass index (BMI) [Ratio] 35.15 kg/m2 Ben GeorgeSpinUtopiaradhao [employer] Work Phone: [employer] 12-23-2024 10:56-0400 Body weight 114.31 kg Ben Maharajo [employer] Work Phone: [employer] 12-23-2024 10:56-0400 Diastolic blood pressure 72 mm[Hg] Ben Maharajo [employer] Work Phone: [employer] 12-23-2024 10:56-0400 Heart rate 66 /min Ben Maharajo [employer] Work Phone: [employer] 12-23-2024 10:56-0400 Systolic blood pressure 138 mm[Hg] Ben Maharajo [employer] Work Phone: [employer] 12-09-2024 13:13-0400 Body height 179.1 cm Allie Grande PA-C Work Phone: [facility] 12-09-2024 13:13-0400 Body mass index (BMI) [Ratio] 36.21 kg/m2 Allie Grande PA-C Work Phone: [facility] 12-09-2024 13:13-0400 Body temperature 98.2 [degF] Allie Grande PA-C Work Phone: [facility] 12-09-2024 13:13-0400 Body weight 116.1 kg Allie Grande PA-C Work Phone: [facility] 12-09-2024 13:13-0400 Diastolic blood pressure 74 mm[Hg] Allie Grande PA-C Work Phone: [facility] 12-09-2024 13:13-0400 Heart rate 75 /min Allie Kessleran PA-C Work Phone: [facility] 12-09-2024 13:13-0400 Respiratory rate 18 /min Allie Grande PA-C Work Phone: [facility] 12-09-2024 13:13-0400 SaO2% (BldA) [Mass fraction] 96 % Allie Grande PA-C Work Phone: [facility] 12-09-2024 13:13-0400 Systolic blood pressure 120 mm[Hg] Allie Kessleran PA-C Work Phone: [facility] 11-18-2024 11:49-0400 Body temperature 98 [degF] Rachel Boggsbishop [facility] 11-18-2024 11:49-0400 Body weight 116.57 kg [facility] 11-18-2024 11:49-0400 Diastolic blood pressure 78 mm[Hg] Rachel Flakitabishop [facility] 11-18-2024 11:49-0400 Heart rate 70 /min [facility] 11-18-2024 11:49-0400 Respiratory rate 16 /min Rachel Zaugg [facility] 11-18-2024 11:49-0400 SaO2% (BldA) [Mass fraction] 97 % Racheleleuterio Rangel [facility] 11-18-2024 11:49-0400 Systolic blood pressure 149 mm[Hg] Rachel Rangel [facility] 11-04-2024 15:19-0400 Body height 180.3 cm Rachel Rangel DO Work Phone: [facility] 11-04-2024 15:19-0400 Body mass index (BMI) [Ratio] 35.84 kg/m2 Rachel Rangel DO Work Phone: [facility] 11-04-2024 15:19-0400 Body temperature 97.7 [degF] Rachel Rangel DO Work Phone: [facility] 11-04-2024 15:19-0400 Body weight 116.57 kg Rachel Rangel DO Work Phone: [facility] 11-04-2024 15:19-0400 Diastolic blood pressure 72 mm[Hg] Rachel Rangel DO Work Phone: [facility] 11-04-2024 15:19-0400 Heart rate 67 /min Rachel Rangel DO Work Phone: [facility] 11-04-2024 15:19-0400 SaO2% (BldA) [Mass fraction] 96 % Rachel Rangel DO Work Phone: [facility] 11-04-2024 15:19-0400 Systolic blood pressure 129 mm[Hg] Rachel Rangel DO Work Phone: [facility] 09-20-2024 10:15-0400 Body temperature 98 [degF] Rachel Rangel [facility] 09-20-2024 10:15-0400 Body weight 119.29 kg Rachel Rangel [facility] 09-20-2024 10:15-0400 Diastolic blood pressure 88 mm[Hg] Racheleleuterio Rangel [facility] 09-20-2024 10:15-0400 Heart rate 58 /min [facility] 09-20-2024 10:15-0400 SaO2% (BldA) [Mass fraction] 98 % [facility] 09-20-2024 10:15-0400 Systolic blood pressure 154 mm[Hg] [facility] 08-06-2024 11:05-0500 Body temperature 98.2 [degF] [facility] 08-06-2024 11:05-0500 Body weight 120.2 kg [facility] 08-06-2024 11:05-0500 Diastolic blood pressure 78 mm[Hg] [facility] 08-06-2024 11:05-0500 Heart rate 62 /min [facility] 08-06-2024 11:05-0500 Respiratory rate 16 /min [facility] 08-06-2024 11:05-0500 SaO2% (BldA) [Mass fraction] 98 % [facility] 08-06-2024 11:05-0500 Systolic blood pressure 160 mm[Hg] [facility] 07-05-2024 08:47-0500 Body height 180.3 cm Aubire Palmer MD Work Phone: [facility] 07-05-2024 08:47-0500 Body mass index (BMI) [Ratio] 36.96 kg/m2 Aubrie Palmer MD Work Phone: [facility] 07-05-2024 08:47-0500 Body weight 120.2 kg Aubrie Palmer MD Work Phone: [facility] 07-05-2024 08:47-0500 Diastolic blood pressure 82 mm[Hg] Aubrie Palmer MD Work Phone: [facility] 07-05-2024 08:47-0500 Respiratory rate 18 /min Aubrie Pamler MD Work Phone: [facility] 07-05-2024 08:47-0500 Systolic blood pressure 128 mm[Hg] Aubrie Palmer MD Work Phone: [employer] 06-10-2024 14:18-0500 Body height 180.3 cm Rachel Zaugg DO Work Phone: [employer] 06-10-2024 14:18-0500 Body mass index (BMI) [Ratio] 36.82 kg/m2 Rachel Zaugg DO Work Phone: [employer] 06-10-2024 14:18-0500 Body temperature 98.1 [degF] Rachel Zaugg DO Work Phone: [employer] 06-10-2024 14:18-0500 Body weight 119.75 kg Rachel Zaugg DO Work Phone: [employer] 06-10-2024 14:18-0500 Diastolic blood pressure 66 mm[Hg] Rachel Zaugg DO Work Phone: [employer] 06-10-2024 14:18-0500 Heart rate 67 /min Rcahel Zaugg DO Work Phone: [employer] 06-10-2024 14:18-0500 SaO2% (BldA) [Mass fraction] 95 % Rachel Zaugg DO Work Phone: [employer] Comment on above: [facility] 06-10-2024 14:18-0500 Systolic blood pressure 126 mm[Hg] Rachel Zaugg DO Work Phone: [employer] 05-22-2023 13:03-0500 Diastolic blood pressure 71 mm[Hg] Rachel Zaugg DO Work Phone: [employer] 05-22-2023 13:03-0500 Heart rate 71 /min Rachel Zaugg DO Work Phone: [employer] 05-22-2023 13:03-0500 Systolic blood pressure 137 mm[Hg] Rachel Zaugg DO Work Phone: [employer] 05-22-2023 13:00-0500 Body height 180.3 cm Rachel Zaugg DO Work Phone: [employer] 05-22-2023 13:00-0500 Body mass index (BMI) [Ratio] 38.28 kg/m2 Rachel Rangel DO Work Phone: [employer] 05-22-2023 13:00-0500 Body temperature 98.1 [degF] Rachel Rangel DO Work Phone: [employer] 05-22-2023 13:00-0500 Body weight 124.51 kg Rachel Rangel DO Work Phone: [employer] 05-22-2023 13:00-0500 SaO2% (BldA) [Mass fraction] 94 % Rachel Rangel DO Work Phone: [facility] [employer] Encounters Encounter Date Encounter Type Care Provider Facility Start: 12-28-2024 ambulatory [facility] Facility:[facility] Start: 12-27-2024 Encounter for other preprocedural examination [facility] Start: 12-23-2024 End: 12-23-2024 Office outpatient new 45 minutes Ben GeorgeSpinUtopialorena FRANKLIN Work Phone: [facility] [employer] [facility] [place] Comment on above: Primary hypertension (Primary Dx); Mixed hyperlipidemia; Carotid artery stenosis, asymptomatic, bilateral Start: 12-23-2024 End: 12-23-2024 ambulatory BEN [facility] [employer] [facility] Start: 12-09-2024 End: 12-09-2024 Office outpatient visit 15 minutes Allie Grande PA-C Work Phone: [facility] Comment on above: Tick bite of right t high, initial encounter (Primary Dx) Start: 12-09-2024 End: 12-09-2024 ambulatory RACHEL RANGEL Facility:[facility] Start: 11-18-2024 End: 11-18-2024 ambulatory Rachel Rangel [facility] Work Phone: Start: 11-18-2024 End: 11-18-2024 Patient encounter procedure Zuly KO -[facility] Work Phone: Start: 11-18-2024 End: 11-18-2024 ambulatory Zuly Ruggiero Facility:[facility] Start: 11-04-2024 End: 11-04-2024 ambulatory RACHEL RANGEL [facility] Start: 11-04-2024 End: 11-04-2024 Office outpatient visit 25 minutes Rachel Rangel DO Work Phone: [facility] [place] Comment on above: Type 2 diabetes herber itus with hyperglycemia, without long-term current use of insulin (HCC) (Primary Dx); Encounter for colorectal cancer screening; Mixed hyperlipidemia; History of ischemic right MCA stroke; Type 2 diabetes mellitus with diabetic neuropathy, without long-term current use of insulin (HCC); Primary hypertension; Hypothyroidism, unspecified type; Neuropathy; Type 2 diabetes mellitus without complication, without long-term current use of insulin (HCC); Recurrent mild major depressive disorder with anxiety (HCC) Start: 11-02-2024 ambulatory Zuly Ruggiero Facility: [facility] Start: 10-19-2024 End: 10-19-2024 Telephone encounter Mina Blount RN [facility] [place] Comment on above: Care Coordination (V ascular procedure cancelled due to abnormal blood work. ) Start: 09-20-2024 End: 09-20-[address] Mart Atkinson MD -[facility] Work Phone: Start: 09-20-2024 End: 09-20-2024 ambulatory Mart Atkinson Facility:[facility] [facility] Start: 09-14-2024 End: 09-14-2024 Subsequent hospital visit by physician Mart Atkinson MD Work Phone: [facility] Comment on above: Occlusion and stenos is of unspecified carotid artery Start: 09-14-2024 End: 09-14-2024 ambulatory MART ATKINSON [facility] Start: 08-25-2024 End: 11-24-2024 Transcribe Orders Zuly Ruggiero PA-C Work Phone: [facility] Central Scheduling Comment on above: Occlusion and stenos is of unspecified carotid artery (Primary Dx) Start: 08-24-2024 End: 11-23-2024 Telephone encounter Mart Atkinson MD Work Phone: [facility] Central Scheduling Comment on above: Occlusion and stenos is of unspecified carotid artery (Primary Dx) Start: 08-17-2024 End: 08-17-2024 Documentation procedure Aubrie [place] MD Work Phone: [facility] [place] Start: 08-16-2024 End: 11-15-2024 Transcribe Orders Zuly Ruggiero PA-C Work Phone: [facility] Central Scheduling Start: 08-11-2024 ambulatory Zuly Ruggiero Facility:[facility] Start: 08-06-2024 End: 08-06-2024 Patient encounter procedure [facility] Work Phone: Start: 08-06-2024 End: 08-06-2024 ambulatory Zuly Ruggiero Facility:[facility] Start: 07-05-2024 End: 07-05-2024 Office outpatient new 45 minutes Aubrie [place] MD Work Phone: [facility] Comment on above: Asymptomatic stenosi s of left carotid artery (Primary Dx) Start: 07-05-2024 End: 07-05-2024 ambulatory AUBRIE PALMER [facility] Start: 06-10-2024 End: 06-10-2024 ambulatory RACHEL RANGEL [facility] Start: 06-10-2024 End: 06-10-2024 Office outpatient visit 25 minutes Rachel Rangel DO Work Phone: [facility] Comment on above: Type 2 diabetes herber itus with hyperglycemia, without long-term current use of insulin (HCC) (Primary Dx); Encounter for colorectal cancer screening; Recurrent mild major depressive disorder with anxiety ([facility]) ; Hypothyroidism, unspecified type; Mixed hyperlipidemia; Class 2 severe obesity due to excess calories with serious comorbidity and body mass index (BMI) of 38.0 to 38.9 in adult ([facility]); History of ischemic right MCA stroke; Primary hypertension; Carotid artery stenosis, symptomatic, bilateral; Neuropathy Start: 12-09-2023 End: 12-09-2023 Refill Rachel Rangel DO Work Phone: [facility] Comment on above: Type 2 diabetes herber itus with hyperglycemia, without long-term current use of insulin (HCC); Neuropathy; Recurrent mild major depressive disorder with anxiety (HCC) Start: 11-18-2023 End: 11-18-2023 Subsequent hospital visit by physician Rachel Rangel DO Work Phone: [facility] [address] [facility] [facility] Comment on above: Carotid artery steno sis, symptomatic, bilateral Start: 11-13-2023 Refill Jacob Loja MD Work Phone: [facility] Start: 05-22-2023 End: 05-22-2023 Office outpatient visit 25 minutes Rachel Rangel DO Work Phone: [facility] Comment on above: Type 2 diabetes herber itus with hyperglycemia, without long-term current use of insulin (HCC) (Primary Dx); Primary hypertension; Class 2 severe obesity due to excess calories with serious comorbidity and body mass index (BMI) of 38.0 to 38.9 in adult ; Hypothyroidism, unspecified type; Mixed hyperlipidemia; History of ischemic right MCA stroke; Neuropathy; Recurrent mild major depressive disorder with anxiety (HCC) ; Carotid artery stenosis, symptomatic, bilateral; Encounter for hepatitis C screening test for low risk patient; Hypersomnolence Start: 05-04-2023 Refill Rachel D Za ugg DO Work Phone: [facility] Start: 05-03-2023 Refill Rachel D Za ugg DO Work Phone: [facility] Start: 04-30-2023 ambulatory Maria Fernanda Arthur LPN [facility] Start: 08-08-2022 Refill Rachel D Za ugg DO Work Phone: [facility] Start: 06-05-2022 Refill Rachel D Za ugg DO Work Phone: [facility] Start: 01-17-2022 End: 01-17-2022 Subsequent hospital visit by physician Rachel Rangel DO Work Phone: [facility] USE ONLY Comment on above: Hypothyroidism, unsp ecified type; Hypertension, unspecified type; Mixed hyperlipidemia; Class 2 severe obesity due to excess calories with serious comorbidity and body mass index (BMI) of 38.0 to 38.9 in adult (HCC) Start: 09-27-2021 End: 09-27-2021 Subsequent hospital visit by physician Rachel Rangel DO Work Phone: [facility] USE ONLY Comment on above: Hypothyroidism, unsp ecified type Start: 03-22-2021 End: 03-22-2021 Subsequent hospital visit by physician Rachel Rangel DO Work Phone: [facility] USE ONLY Start: 02-08-2021 End: 02-08-2021 Subsequent hospital visit by physician Rachel Rangel DO Work Phone: [facility] ONLY Comment on above: Type 2 diabetes herber itus with hyperglycemia, without long-term current use of insulin ([facility]); Current moderate episode of major depressive disorder without prior episode ([facility]); Hypothyroidism, unspecified type Start: 05-18-2020 End: 05-18-2020 Subsequent hospital visit by physician Rachel Rangel Work Phone: [facility] ONLY Comment on above: Transaminitis; Hypothyroidism, unspecified type Start: 01-13-2020 End: 01-13-2020 Subsequent hospital visit by physician Rachel Rangel Work Phone: [facility] ONLY Comment on above: Essential hypertensi on; Type 2 diabetes mellitus with hyperglycemia, without long-term current use of insulin ([facility]); Hypothyroidism, unspecified type Start: 06-07-2019 End: 06-07-2019 Subsequent hospital visit by physician Rebecca [place] MD Work Phone: [facility] [address] [facility] Comment on above: Pneumonia due to inf ectious organism, unspecified laterality, unspecified part of lung Start: 06-07-2019 End: 06-07-2019 Subsequent hospital visit by physician Josefa Acuna [employer] C[employer] THERAPIST - CHURCH ADMINISTRATOR Work Phone: [facility] USE ONLY Start: 05-11-2019 End: 05-11-2019 Subsequent hospital visit by physician Ben Justice DO Work Phone: [facility] [address] Comment on above: Pure hypercholestero lemia Start: 05-06-2019 End: 05-06-2019 Subsequent hospital visit by physician Rachel Rangel Work Phone: [facility] USE ONLY Comment on above: Hypothyroidism, unsp ecified type Start: 02-04-2019 End: 02-04-2019 Subsequent hospital visit by physician Rachel Rangel Work Phone: [facility] LAB USE ONLY Comment on above: Hypertension, unspec ified type; Carotid artery stenosis, symptomatic, bilateral; Hypothyroidism, unspecified type; Type 2 diabetes mellitus with hyperglycemia, without long-term current use of insulin (HCC) Procedures Date Procedure Procedure Detail Performing Clinician Start: 12-23-2024 Ecg routine ecg w/le ast 12 lds trcg only w/o i&r Ben Reshma DO Work Phone: Start: 11-04-2024 Hemoglobin glycosyla neelima a1c Rachel Rangel DO Work Phone: Start: 11-04-2024 Thyrotropin [Units/v olume] in Serum or Plasma Rachel Rangel DO Work Phone: Start: 09-14-2024 Ct angiography neck w/contrast/noncontrast Mart Atkinson MD Work Phone: Start: 06-10-2024 Comprehensive metabo lic panel Rachel Rangel DO Work Phone: Start: 06-10-2024 Lipid panel Rachel Rangel DO Work Phone: Start: 06-10-2024 Lipid 1996 panel - S [place] or Plasma Rachel Rangel DO Work Phone: Start: 06-10-2024 Thyrotropin [Units/v olume] in Serum or Plasma Rachel Rangel DO Work Phone: Start: 11-18-2023 Duplex scan extracra nial art compl bi study Rachel Rangel DO Work Phone: Start: 05-22-2023 End: 05-22-2023 Comprehensive metabolic panel Rachel D Zaugg DO Work Phone: Start: 05-22-2023 Lipid panel Rachel D Zaugg DO Work Phone: Start: 05-22-2023 Lipid 1996 panel - S georges or Plasma Rachel Zaugg DO Work Phone: Start: 05-22-2023 Thyrotropin [Units/v olume] in Serum or Plasma Rachel Zaugg DO Work Phone: Start: 01-17-2022 Comprehensive metabo lic panel Rachel D Zaugg DO Work Phone: Start: 01-17-2022 Lipid panel Rachel D Zaugg DO Work Phone: Start: 01-17-2022 Lipid 1996 panel - S [place] or Plasma Rachel Zaugg DO Work Phone: Start: 01-17-2022 Thyrotropin [Units/v olume] in Serum or Plasma Rachel Zaugg DO Work Phone: Start: 09-27-2021 Assay of thyroid stimulating hormone tsh Rachel D Zaugg DO Work Phone: Start: 02-08-2021 Comprehensive metabo lic panel Rachel D Zaugg DO Work Phone: Start: 02-08-2021 Lipid panel Rachel D Zaugg DO Work Phone: Start: 02-08-2021 Urine albumin quantitative Rachel D Zaugg DO Work Phone: Start: 05-18-2020 Assay of free thyroxine Rachel D Zaugg Work Phone: Start: 05-18-2020 Assay of thyroid stimulating hormone tsh Rachel D Zaugg Work Phone: Start: 05-18-2020 Comprehensive metabo lic panel Rachel D Zaugg Work Phone: Start: 01-13-2020 Assay of thyroid stimulating hormone tsh Rachel D Zaugg Work Phone: Start: 01-13-2020 Blood count complete automated Rachel D Zaugg Work Phone: Start: 01-13-2020 Comprehensive metabo lic panel Rachel Boggsugg Work Phone: Start: 01-13-2020 Lipid panel Rachel Glover Zaugg Work Phone: Start: 06-07-2019 Radiologic exam ches t 2 views Josefa L Colt F[employer] C[employer] THERAPIST - CHURCH ADMINISTRATOR Work Phone: Start: 05-11-2019 Lipid panel Ben blackngo DO Work Phone: Start: 05-06-2019 Assay of thyroid stimulating hormone tsh Rachel Boggsugg Work Phone: Start: 02-04-2019 Assay of thyroid stimulating hormone tsh Rachel Rangel Work Phone: Start: 02-04-2019 Blood count complete auto&auto difrntl wbc Rachel Rangel Work Phone: Start: 02-04-2019 Comprehensive metabo lic panel Rachel Rangel Work Phone: Start: 02-04-2019 Lipid panel Rachel Boggsugg Work Phone: Start: 02-04-2019 Urine albumin quantitative Rachel Rangel Work Phone: Plan of Treatment Date Care Activity Detail Author Start: 2034 RSV Vaccine (1 - 1-dose 75+ series) RSV Vaccine (1 - 1-dose 75+ series) [facility] Start: 06-10-2029 Lipid panel Lipid Screening [facility] Start: 11-05-2027 Diabetes Screening Diabetes Screening [facility] Start: 06-25-2027 DTaP/Tdap/Td vaccine (2 - Td or Tdap) DTaP/Tdap/Td vaccine (2 - Td or Tdap) [facility] Start: 06-25-2027 DTaP/Tdap/Td vaccine (2 - Td) DTaP/Tdap/Td vaccine (2 - Td) [place] Start: 06-25-2027 DTaP/Tdap/Td Vaccines (2 - Td or Tdap) DTaP/Tdap/Td Vaccines (2 - Td or Tdap) [facility] Start: 06-25-2027 Urine microalbumin profile DTaP,Tdap,Td Vaccine (2 - Td or Tdap) [facility] Start: 11-04-2025 Hemoglobin A1c measurement Diabetes: Hemoglobin A1C [facility] Start: 11-04-2025 Thyroid stimulating hormone measurement TSH Level [facility] Start: 06-10-2025 Diabetes: Estimated Glomerular Filtration Rate for Kidney Health Diabetes: Estimated Glomerular Filtration Rate for Kidney Health [facility] Start: 06-10-2025 Diabetes: Urine Albumin-Creatinine Ratio for Kidney Health Diabetes: Urine Albumin-Creatinine Ratio for Kidney Health [facility] Start: 06-10-2025 Hemoglobin A1c measurement Diabetes: Hemoglobin A1C [facility] Start: 06-10-2025 Lipid panel Lipid Panel [facility] Start: 06-10-2025 Thyroid stimulating hormone measurement TSH Level [facility] Start: 02-23-2025 End: 02-23-2025 Patient encounter procedure 02/23/2025 10:40 AM EDT Office Visit [facility] [address] [place] [phone] Ben Justice DO [address] [place] [address] [facility] Start: 02-04-2025 End: 02-04-2025 Patient encounter procedure 02/04/2025 10:00 AM EDT Office Visit [facility] [place] [address] [phone] Josefa Acuna, F[employer] C[employer] THERAPIST - CHURCH ADMINISTRATOR [address] [facility] [address] [place] [id number] [facility] Start: 01-31-2025 Influenza vaccination [facility] Start: 11-18-2024 Thyroid stimulating hormone measurement [facility] Start: 11-04-2024 End: 11-04-2024 Patient encounter procedure 11/04/2024 2:45 PM EDT Office Visit [facility] [address] [facility] [address] [place] [phone] Zaugg, Rachel D, DO [address] [place] [address] [facility] Start: 09-09-2024 End: 09-09-2024 Patient encounter procedure 09/09/2024 12:45 PM EDT Office Visit [facility] [address] [place] [address] Rachel Rangel, DO [address] [place] [address] [facility] Start: 08-25-2024 End: 08-25-2025 Creatinine [Mass/volume] in Serum or Plasma Creatinine, Serum Lab Routine Occlusion and stenosis of unspecified carotid artery Expected: 08/25/2024 (Approximate), Expires: 08/25/2025 [facility] Comment on above: Expected: 08/25/2024 (Approximate), Expi res: 08/25/2025 Start: 08-25-2024 End: 08-25-2025 CTA Neck vessels WO and W contrast IV CTA neck angio w and wo IV contrast Imaging Routine Occlusion and stenosis of unspecified carotid artery Expected: 08/25/2024, Expires: 08/25/2025 [facility] Work Phone: Comment on above: Expected: 08/25/2024, Expires: Start: 2024 Advance Directive Discussion Advance Directive Discussion [facility] Start: 2024 Medicare Advantage Annual Wellness Visit Medicare Advantage Annual Wellness Visit [facility] Start: 2024 Pneumococcal 0-64 years Vaccine (2 of 2 - PPSV23) Pneumococcal 0-64 years Vaccine (2 of 2 - PPSV23) [facility] Work Phone: Start: 05-22-2024 Diabetes: Estimated Glomerular Filtration Rate for Kidney Health Diabetes: Estimated Glomerular Filtration Rate for Kidney Health [facility] Start: 05-22-2024 Hemoglobin A1c measurement Diabetes: Hemoglobin A1C [facility] Start: 05-22-2024 Lipid panel Lipid Panel [facility] Start: 05-22-2024 Thyroid stimulating hormone measurement TSH Level [facility] Start: 02-01-2024 COVID-19 Vaccine ( season) COVID-19 Vaccine ( season) [facility] Start: 02-01-2024 Influenza vaccination [facility] Start: 11-21-2023 Depression Monitoring Depression Monitoring [facility] Start: 11-21-2023 Depresssion Monitoring Depresssion Monitoring [facility] Start: 11-18-2023 End: 11-18-2023 Patient encounter procedure 11/18/2023 3:20 PM EDT Appointment [facility] [address] [facility] [address] [place] [phone] [facility] [address] [facility] [facility] Start: 08-21-2023 End: 08-21-2023 Patient encounter procedure 08/21/2023 12:45 PM EDT Office Visit [facility] [address] [place] [address] Rachel Rangel DO [address] [place] [address] [facility] Start: 2023 Medicare Advantage Annual Wellness Visit Medicare Advantage Annual Wellness Visit [facility] Start: 05-22-2023 End: 05-22-2023 Patient encounter procedure 05/22/2023 12:45 PM EST Office Visit [facility] [address] [place] [address] Rachel Rangel DO [address] [place] [phone] [facility] Start: 04-04-2023 Hemoglobin A1c measurement Diabetes: Hemoglobin A1C [facility] Start: 01-31-2023 COVID-19 Vaccine ( season) COVID-19 Vaccine ( season) [facility] Start: 01-31-2023 Influenza vaccination Influenza Vaccine (#1) [facility] Start: 01-17-2023 Lipid panel Lipid Panel [facility] Start: 01-17-2023 Thyroid stimulating hormone measurement TSH Level [facility] Start: 09-27-2022 Hemoglobin A1c measurement A1C test (Diabetic or Prediabetic) [facility] Start: 09-27-2022 Thyroid stimulating hormone measurement TSH [facility] Start: 07-05-2022 Hemoglobin A1c measurement Diabetes: Hemoglobin A1C [facility] Start: 07-04-2022 End: 07-04-2022 Patient encounter procedure 07/04/2022 Office Visit Internal Medicine Rachel Rangel, DO [address] [place] [phone] [facility] Start: 06-28-2022 Creatinine measurement Creatinine [facility] Start: 06-28-2022 Depression Monitoring Depression Monitoring [facility] Start: 06-28-2022 Potassium [Moles/volume] in Serum or Plasma Potassium [facility] Start: 04-04-2022 End: 04-04-2022 Patient encounter procedure 04/04/2022 Office Visit Internal Medicine Rachel Rangel, DO [address] [place] [phone] [facility] Start: 02-08-2022 Creatinine measurement Creatinine monitoring [facility] Work Phone: Start: 02-08-2022 Diabetes: Urine Albumin-Creatinine Ratio for Kidney Health Diabetes: Urine Albumin-Creatinine Ratio for Kidney Health [facility] Start: 02-08-2022 Diabetic microalbuminuria test Diabetic microalbuminuria test [facility] Work Phone: Start: 02-08-2022 Hemoglobin A1c measurement A1C test (Diabetic or Prediabetic) [facility] Work Phone: Start: 02-08-2022 Lipid panel [facility] Start: 02-08-2022 Potassium monitoring Potassium monitoring [facility] Work Phone: Start: 02-08-2022 Thyroid stimulating hormone measurement TSH testing [facility] Work Phone: Start: 02-08-2022 Urine screening for protein [facility] Start: 01-31-2022 Influenza vaccination [facility] Start: 01-03-2022 End: 01-03-2022 Patient encounter procedure 01/03/2022 Office Visit Internal Medicine Rachel Rangel, DO [address] [place] [phone] [facility] Start: 05-18-2021 Creatinine measurement Creatinine monitoring [facility] Work Phone: Start: 05-18-2021 HbA1c (Bld) [Mass fraction] A1C test (Diabetic or Prediabetic) [place] Start: 05-18-2021 Potassium monitoring Potassium monitoring [facility] Work Phone: Start: 05-18-2021 Thyroid stimulating hormone measurement TSH testing [facility] Work Phone: Start: 03-22-2021 End: 03-22-2021 Patient encounter procedure 03/22/2021 Office Visit Internal Medicine Rachel Rangel, DO [address] [place] [phone] [facility] Start: 01-31-2021 Influenza vaccination Flu vaccine (#1) [facility] Work Phone: Start: 01-12-2021 Creatinine measurement Creatinine monitoring [facility] Start: 01-12-2021 Lipid panel Lipid screen [place] Start: 01-12-2021 Potassium monitoring Potassium monitoring [place] Start: 01-12-2021 TSH Qn TSH testing [place] Start: 08-17-2020 End: 08-17-2020 Office Visit 08/17/2020 Office Visit Internal Medicine Rachel Rangel DO [address] [place] [phone] [facility] Start: 05-11-2020 Lipid panel Lipid screen [place] Start: 05-11-2020 Lipid screen Lipid screen [facility] Work Phone: Start: 05-06-2020 A1C test (Diabetic or Prediabetic) A1C test (Diabetic or Prediabetic) [facility] Work Phone: Start: 05-06-2020 HbA1c (Bld) [Mass fraction] A1C test (Diabetic or Prediabetic) [place] Start: 05-06-2020 TSH Qn TSH testing [place] Start: 05-06-2020 TSH testing TSH testing [facility] Work Phone: Start: 02-05-2020 A1C test (Diabetic or Prediabetic) A1C test (Diabetic or Prediabetic) [place] Start: 02-05-2020 Creatinine measurement Creatinine monitoring [place], [place] Start: 02-05-2020 Creatinine monitoring Creatinine monitoring [place] Start: 02-05-2020 Diabetic microalbuminuria test Diabetic microalbuminuria test [place] Start: 02-05-2020 Lipid screen Lipid [place] Start: 02-05-2020 Potassium monitoring Potassium [place] Start: 02-05-2020 TSH testing T[place] Start: 02-01-2020 Influenza vaccination Flu vaccine (#1) [place] Start: 01-13-2020 Annual Wellness Visit (AWV) Annual Wellness Visit (AWV) [facility] Start: 08-05-2019 End: 08-05-2019 Office Visit 08/05/2019 Office Visit Internal Medicine Rachel Rangel, DO [address] [place] [phone] [facility] Start: 2019 RSV Immunization aged 60 or older (1 - 1-dose 60+ series) RSV Immunization aged 60 or older (1 - 1-dose 60+ series) [facility] Start: 2019 RSV Immunization for Adults (1 - Risk 60-74 years 1-dose series) RSV Immunization for Adults (1 - Risk 60-74 years 1-dose series) [facility] Start: 05-24-2019 End: 05-24-2019 Patient encounter procedure 05/24/2019 Appointment Vascular Lab [facility] [address] [facility] Start: 05-11-2019 End: 05-11-2019 Office Visit 05/11/2019 Office Visit Cardiology Ben Justice DO [address] [place] [address] [phone] [facility] Start: 05-06-2019 End: 05-06-2019 Office Visit 05/06/2019 Office Visit Internal Medicine Rachel Rangel, [address] [place] [address] [facility] Start: 01-31-2019 Influenza vaccination Flu vaccine (#1) [place] Start: 01-22-2019 Creatinine monitoring Creatinine monitoring [place] Start: 01-22-2019 Lipid screen Lipid [place] Start: 01-22-2019 Potassium monitoring Potassium [place] Start: 01-22-2019 TSH testing T[place] Start: 07-27-2018 [object Object] Diabetic foot exam [place] Start: 07-27-2018 Diabetic foot examination Diabetic foot exam [facility] Start: 06-25-2018 Pneumococcal 0-64 years Vaccine (2 - PCV) Pneumococcal 0-64 years Vaccine (2 - PCV) [facility] Start: 06-25-2018 Pneumococcal Vaccine: 50+ (2 of 2 - PCV) Pneumococcal Vaccine: 50+ (2 of 2 - PCV) [facility] Start: 06-25-2018 Pneumococcal Vaccine: 50+ Years (2 of 2 - PCV) Pneumococcal Vaccine: 50+ Years (2 of 2 - PCV) [facility] Start: 06-25-2018 Pneumococcal Vaccine: Pediatrics (0 to 5 Years) and At-Risk Patients (6 to 64 Years) (2 - PCV) Pneumococcal Vaccine: Pediatrics (0 to 5 Years) and At-Risk Patients (6 to 64 Years) (2 - PCV) [facility] Start: 06-25-2018 Pneumococcal Vaccine: Pediatrics (0 to 5 Years) and At-Risk Patients (6 to 64 Years) (2 of 2 - PCV) Pneumococcal Vaccine: Pediatrics (0 to 5 Years) and At-Risk Patients (6 to 64 Years) (2 of 2 - PCV) [facility] Start: 04-24-2018 A1C test (Diabetic or Prediabetic) A1C test (Diabetic or Prediabetic) [place] Start: 2009 Colon cancer screen colonoscopy Colon cancer screen colonoscopy [place] Start: 2009 Screening for malignant neoplasm of colon Colon cancer screen colonoscopy [place] Start: 2009 Shingles Vaccine (1 of 2) Shingles Vaccine (1 of 2) [facility] Start: 2009 Shingrix Vaccine (1 of 2) Shingrix Vaccine (1 of 2) [facility] Start: 2009 Zoster Vaccines (1 of 2) Zoster Vaccines (1 of 2) [facility] Start: 2004 Prostate specific antigen measurement Prostate Cancer Screening Discussion [facility] Start: 2004 Screening for malignant neoplasm of colon [facility] Start: 1978 Hepatitis B Vaccine (1 of 3 - Risk 3-dose series) Hepatitis B Vaccine (1 of 3 - Risk 3-dose series) [place] Start: 1977 Anxiety Screening Anxiety Screening [facility] Start: 1977 Depression Screening Depression Screening [facility] Start: 1977 Diabetic microalbuminuria test Diabetic microalbuminuria test [place] Start: 1977 Diabetic retinal exam Diabetic retinal exam [facility] Start: 1977 Hepatitis C screening Hepatitis C Screening [facility] Start: 1977 HIV screening HIV Screening [facility] Start: 1971 COVID-19 Vaccine (1) COVID-19 Vaccine (1) [facility] Work Phone: Start: 1971 Depresssion Monitoring Depresssion Monitoring [facility] Start: 1969 Diabetic foot examination Diabetes: Foot Exam [facility] [facility] Start: [facility] Diabetic retinal exam Diabetic retinal exam [place], [place] Start: 1969 Glaucoma screening Diabetes: Retinopathy Screening [facility] Start: 1969 Preventive dental service Diabetes: Dental Exam [facility] Start: 1964 COVID-19 Vaccine (1) COVID-19 Vaccine (1) [facility] Start: 1960 MMR Vaccines (1 of 1 - Standard series) MMR Vaccines (1 of 1 - Standard series) [facility] Start: 1959 COVID-19 Vaccine (#1) COVID-19 Vaccine (#1) [facility] Start: 1959 Abdominal aortic aneurysm screening Abdominal Aortic Aneurysm Screening [facility] Start: 1959 Annual wellness visit Medicare Initial Physical (IPPE) [facility] Start: 1959 Annual Wellness Visit (AWV) Annual Wellness Visit (AWV) [facility] Start: 1959 Hepatitis B Vaccines (1 of 3 - 3-dose series) Hepatitis B Vaccines (1 of 3 - 3-dose series) [facility] Start: 1959 HIV screening HIV Screening [facility] Start: 1959 Medicare Advantage Annual Wellness Visit (AWV) Medicare Advantage Annual Wellness Visit (AWV) [facility] Start: 1959 Screening for malignant neoplasm of colon [facility] Cologuard colon canc er screening Cologuard colon cancer screening Lab Routine Encounter for colorectal cancer screening Ordered: 11/04/2024 [employer] Work Phone: Comment on above: Ordered: 11/04/2024 CTA Head vessels and Neck vessels W contrast IV [facility] ECG 12 lead - CLINIC PERFORMED ECG 12 lead - CLINIC PERFORMED CV ECG Routine Primary hypertension 12/23/2024 11:01 AM EDT [employer] Work Phone: Immunizations Immunization Date Immunization Notes Care Provider Tereso cason 06-25-2017 pneumococcal polysaccharide vaccine, 23 valent Rachel Rangel [facility] 06-25-2017 tetanus toxoid, redu kaylynn diphtheria toxoid, and acellular pertussis vaccine, adsorbed Rachel Flakitabishop [place], [place] Payers Date Payer Category Payer Private Health Insurance [id number] 2024 Self-pay 2024 Medicare (Managed Care) [facility] [place] [address] [id number] 2022 Medicare [id number] 2021 Medicare [id number] 2019 Medicare [id number] 2019 Medicare [facility] MEDICARE [facility] MEDICARE COMPLETE [id number] 2019-Present [address] [address] [place] [address] [id number] 2019 Medicare HMO [id number] 2019 Unknown KATHERIN MIDDLETONNANDINI BRE xxxxxxxxxxx 2019-Present [phone] [address] [place] [address] xxxxxxxxxxx [id number] Unknown [id number] Unknown [id number] Unknown [id number] Unknown [id number] Unknown [id number] Unknown [id number] Unknown [id number] Social History Date Type Detail Facility Start: 03-11-2018 End: 12-23-2024 Tobacco smoking status [facility] Former smoker [facility] End: 2017 History of tobacco use Current smoker [place] End: 2017 History of tobacco use [facility] Start: 03-11-2018 End: 05-22-2023 Alcohol intake Yes [facility] Start: 06-25-2017 [facility] Start: 1960 Sex Assigned At Not on file [facility] Start: 05-06-2019 End: 12-23-2024 Alcohol intake Current drinker of alcohol (finding) [facility] Start: 01-13-2020 End: 12-23-2024 Tobacco use and exposure Never used Ayesha [facility] Exposure to SARS-CoV-2 (event) Not sure [facility] Start: 10-11-2020 End: 05-22-2023 Alcohol intake [facility] Work Phone: Exposure to SARS-CoV-2 (event) Yes [facility] Start: 09-17-2021 End: 09-27-2021 Exposure to SARS-CoV-2 (event) Unable to assess [facility] End: 2017 History of tobacco use Cigarette Smoker [facility] Start: 12-31-2021 [facility] (finding[facility] Start: 1960 Sex Assigned At Male W [facility] PHQ-2 Score 0 [facility] Start: 04-15-2019 Alcohol Comment francine [facility] Goals Date Patient Goal Desired Activity /State Comment on above: PT states he wants t o get healthy so that he can be a catalyst for his friends and family. Not putting things off. PT states he wants t o get healthy so that he can be a catalyst for his friends and family. Not putting things off. 06/07/2019--Reduce bread consumption. Formatting of this n ote might be different from the original. PT states he wants to get healthy so that he can be a catalyst for his friends and family. Not putting things off. 06/07/2019--Reduce bread consumption. Clinical Notes 04-30-2023 to 12-23-2024 Ben Justice, - 12/23/2024 11:00 AM Allie Decker PA-C - 12/09/2024 1:22 PM EDTPatient InstructionsAssessment & Plan Note - Rachel Rangel, DO - 11/05/2024 10:31 PM EDT Note Date & Type Note Facility 12-23-2024 History of Present illness Narrative [facility] Medical [facility] Cardiology [facility] - [address] [address] Dept: [phone] Dept Visit type: Established : 1960 DATE of SERVICE: 12/23/2024 Chief Complaint: Chief Complaint Patient presents with Follow-up Pre-op Exam History of Present Illness: Luis Espino is a 64 y.o. male with history of severe symptomatic right carotid arterial occlusive disease post right carotid endarterectomy June 2017, hypertension, hyperlipidemia, VAL, hypothyroidism, former tobacco abuse, and TIA. CTA neck was obtained showing subtotal occlusion on R ICA and 60% stenosis of L ICA. Prior to endarterectomy. Residual paresthesias left arm. Has done very well post surgery. Good BP control. No tobacco, LDL still elevated on max atorvastatin. Now has insurance and Zetia an option. -Carotid duplex 09/29/20 looked good, abnormal flow in L vert but patent -CTA neck 09/14/24 98% stenosis LICA ASX. Referral for pre op clearance with DR Atkinson. No chest pain or abnormal SOB. Needed hypothyroidism treated. LDL 6 m aoi uncontrolled at 163 mg%. Now back on highh intensity statin. Compliance is good. No angina. Past Medical History: Medical History[1] Past Surgical History Surgical History[2] Family History Family History[3] Social History Social History[4] Allergies: Allergies[5] Medications: Current Medications[6] Review of Systems: Review of Systems Constitutional: Negative for activity change, chills, diaphoresis, fatigue and fever. HENT: Negative for nosebleeds and trouble swallowing. Eyes: Negative for discharge and visual disturbance. Respiratory: Negative for apnea, cough, chest tightness, shortness of breath and wheezing. Cardiovascular: Negative for chest pain, palpitations and leg swelling. Gastrointestinal: Negative for abdominal distention, abdominal pain, blood in stool, diarrhea, nausea and vomiting. Endocrine: Negative for cold intolerance and heat intolerance. Genitourinary: Negative for hematuria. Musculoskeletal: Negative for gait problem and myalgias. Skin: Negative for color change and rash. Neurological: Negative for dizziness, seizures, syncope, facial asymmetry, speech difficulty, weakness, light-headedness, numbness and headaches. Hematological: Does not bruise/bleed easily. Psychiatric/Behavioral: Negative for dysphoric mood. Physical Examination: Vitals: Vitals: 12/23/24 1056 BP: 138/72 BP Location: Right arm Patient Position: Sitting BP Cuff Size: Adult Pulse: 66 Weight: 252 lb (114 kg) Height: 5' 11 (1.803 m) Body mass index is 35.15 kg/m . Physical Exam Constitutional: Appearance: Normal appearance. He is obese. HENT: Head: Normocephalic and atraumatic. Eyes: Extraocular Movements: Extraocular movements intact. Conjunctiva/sclera: Conjunctivae normal. Pupils: Pupils are equal, round, and reactive to light. Neck: Vascular: No carotid bruit. Comments: No thyromegaly Cardiovascular: Rate and Rhythm: Normal rate and regular rhythm. Pulses: Normal pulses. Carotid pulses are 2+ on the right side and 2+ on the left side. Radial pulses are 2+ on the right side and 2+ on the left side. Femoral pulses are 2+ on the right side and 2+ on the left side. Popliteal pulses are 2+ on the right side and 2+ on the left side. Dorsalis pedis pulses are 2+ on the right side and 2+ on the left side. Posterior tibial pulses are 2+ on the right side and 2+ on the left side. Heart sounds: Murmur heard. Crescendo decrescendo systolic murmur is present with a grade of 1/6. No gallop. Pulmonary: Breath sounds: Normal breath sounds and air entry. Abdominal: General: Bowel sounds are normal. Palpations: Abdomen is soft. Tenderness: There is no abdominal tenderness. Musculoskeletal: General: Normal range of motion. Cervical back: Normal range of motion and neck supple. Right lower leg: No edema. Left lower leg: No edema. Skin: General: Skin is warm and dry. Findings: No lesion. Neurological: General: No focal deficit present. Mental Status: He is alert and oriented to person, place, and time. Mental status is at baseline. Psychiatric: Mood and Affect: Mood normal. Behavior: Behavior normal. Thought Content: Thought content normal. Laboratory Tests: Lab Results Component Value Date WBC 6.3 06/10/2024 HGB 15.8 06/10/2024 HCT 47.7 06/10/2024 MCV 95.8 06/10/2024 PLT 234 06/10/2024 Lab Results Component Value Date GLUCOSE 106 06/10/2024 CALCIUM 9.5 06/10/2024 NA 140 06/10/2024 K 4.0 06/10/2024 CO2 29 06/10/2024 CL 103 06/10/2024 BUN 20 06/10/2024 CREATININE 0.92 06/10/2024 Lab Results Component Value Date NA 140 06/10/2024 K 4.0 06/10/2024 CL 103 06/10/2024 CO2 29 06/10/2024 BUN 20 06/10/2024 CREATININE 0.92 06/10/2024 GLUCOSE 106 06/10/2024 CALCIUM 9.5 06/10/2024 PROT 7.9 06/10/2024 BILITOT 0.7 06/10/2024 ALKPHOS 68 06/10/2024 AST 26 06/10/2024 ALT 26 06/10/2024 Lab Results Component Value Date CREATININE 0.92 06/10/2024 CREATININE 0.80 05/22/2023 CREATININE 0.72 01/17/2022 Lab Results Component Value Date CHOL 193 06/10/2024 CHOL 118 05/22/2023 CHOL 113 01/17/2022 Lab Results Component Value Date TRIG 163 (H) 06/10/2024 TRIG 145 05/22/2023 TRIG 96 01/17/2022 Lab Results Component Value Date HDL 39 (L) 06/10/2024 HDL 28 (L) 05/22/2023 HDL 30 (L) 01/17/2022 Lab Results Component Value Date LDLCALC 121 (H) 06/10/2024 LDLCALC 61 05/22/2023 No results found for: BNP Cardiac Tests: EC12/23/24 NSR RBBB LAFB Unchanged from 2021. Assessment and Plan: 1. Severe symptomatic bilateral carotid arterial occlusive disease. He had a transient ischemic attack no stroke. He status post right carotid endarterectomy Jun 2017 has well. Now severe asymptomatic LICA disease (98%) Planning L CEA with Dr Atkinson. May proceed with the surgery no special precautions. The patients CV status was stable as of the time of their last office visit. Procedure: Surgery, Endoscopy: CEA Medical status of patient: [x]Chronic cardiac issues stable ANTIPLATELET THERAPY MANAGEMENT: Aspirin should be continued ambika-peratively. Clopidogrel should be continued Estimated risk of MACE: [x] Low (< 1%) [] Intermediate (1 to 5%) [] High (>5%) Able to proceed given current status and risks as outlined. [x]Yes []No 2. Essential hypertension. Controlled. All BPs from L arm. 3. Obstructive sleep apnea is highly suspected. Will discuss and evaluate when I see him back. 4. Hyperlipidemia. Maxed on atorvastatin, recently started back. Adding Zetia today as well. 5. LSCA narrowing. Mild. 20 mmHg lower in L arm. See me back 4-6 wks [1] Past Medical History: Diagnosis Date Acute right arterial ischemic stroke, middle cerebral artery (MCA) ([facility]) 06/11/2017 Carotid artery stenosis, symptomatic, bilateral DM2 (diabetes mellitus, type 2) ([facility]) 2017 Erectile dysfunction Hyperlipidemia Hypertension Hypothyroid [2] Past Surgical History: Procedure Laterality Date CAROTID ENDARTERECTOMY Right 06/16/2017 Dr Mart Atkinson CHOLECYSTECTOMY 1992 [3] Family History Problem Relation Name Age of Onset Breast cancer Mother Carmencita Other ([id number]) Mother Carmencita Alcohol abuse Father Wilfredo [4] Social History Tobacco Use Smoking status: Former Types: Cigars Smokeless tobacco: Never Substance Use Topics Alcohol use: Yes Alcohol/week: 1.0 standard drink of alcohol Drug use: No [5] Allergies Allergen Reactions Duloxetine Nausea Only Penicillins Rash [6] Current Outpatient Medications: amLODIPine (Norvasc) 5 MG tablet, Take 1 tablet (5 mg) by mouth daily., Disp: 90 tablet, Rfl: 3 aspirin 81 MG EC tablet, Take 1 tablet by mouth in the morning., Disp: , Rfl: atorvastatin (Lipitor) 80 MG tablet, Take 1 tablet (80 mg) by mouth every evening., Disp: 90 tablet, Rfl: 3 clopidogrel (Plavix) 75 MG tablet, Take 1 tablet (75 mg) by mouth daily., Disp: 90 tablet, Rfl: 3 levothyroxine (Synthroid, Levoxyl) 75 MCG tablet, Take 3 tablets (225 mcg) by mouth daily., Disp: 270 tablet, Rfl: 3 metFORMIN XR (Glucophage-XR) 500 MG 24 hr tablet, Take 2 tablets (1,000 mg) by mouth 2 times daily (with meals)., Disp: 360 tablet, Rfl: 3 documented in this encounter [facility] [employer] 12-09-2024 Note HNO ID: [id number] Author: ALLIE GRANDE PA-C Service: ? Author Type: Physician [place] Type: Progress Notes Filed: 12/09/2024 13:23 Note Text: Immunizations are up to date. PAST MEDICAL HISTORY Diagnosis Date Depression Diabetes (HCC) Hyperlipidemia Hypertension Hypothyroidism Stroke (HCC) Medications: aspirin 81 mg chewable tablet Take 81 mg by mouth once daily. levothyroxine (SYNTHROID) 150 mcg tablet Take 150 mcg by mouth daily before breakfast. sertraline (ZOLOFT) 100 mg tablet Take 150 mg by mouth once daily. hydroCHLOROthiazide (HYDRODIURIL, ESIDRIX) 25 mg tablet Take 25 mg by mouth once daily. clopidogrel (PLAVIX) 75 mg tablet Take 75 mg by mouth once daily. amLODIPine (NORVASC) 5 mg tablet Take 5 mg by mouth once daily. atorvastatin (LIPITOR) 80 mg tablet Take 80 mg by mouth once daily. metformin HCl (METFORMIN ORAL) Take by mouth. GLYBURIDE ORAL Take by mouth. doxycycline hyclate (VIBRAMYCIN) 100 mg capsule Take 2 capsules by mouth once daily for 1 day. GABAPENTIN ORAL Take by mouth. (Patient not taking: Reported on 12/09/2024) PAST SURGICAL HISTORY Procedure Laterality Date BYP OTH/THN VEIN COMMON-IPSILATERAL CAROTID Carotid Endarectomy Social History Tobacco Use Smoking status: Former Current packs/day: 0.00 Types: Cigarettes Quit date: 06/2017 Years since quittin.5 Smokeless tobacco: Never Substance Use Topics Alcohol use: Yes Comment: rare Drug use: Never Vital Signs: BP 120/74 Pulse 75 Temp 36.8 ?C (98.2 ?F) (Oral) Resp 18 Ht 179.1 cm (5' 10.5) Wt 116.1 kg (255 lb 15.3 oz) SpO2 96% BMI 36.21 kg/m? The patient is a 64-year-old male presenting for a tick bite on the right posterior thigh. Tick Bite: - Noticed an embedded tick on the right posterior thigh approximately one hour ago. - Denies fever, nausea, emesis, or myalgias. - Frequently works outside, often near wooded areas. - History of a tick bite on the chest two years ago, which developed a bullseye rash and took a month to resolve. Constitutional: (-) fever Gastrointestinal: (-) nausea, (-) vomiting Musculoskeletal: (-) myalgia No Cp, Sob. Physical Exam: General: Vitals noted, no distress. Afebrile. Age-appropriate. Interactive. Well-hydrated. Nontoxic. Cardiac: Regular, rate, rhythm, no murmur. Pulmonary: Lungs clear bilaterally with good aeration. No adventitious breath sounds. Extremities: No peripheral edema. Neurovascularly intact throughout. Skin: Tick embedded in right posterior thigh, no erythema migrans, hematoma, or cellulitis. Is blanchable. No evidence of secondary infection. No petechiae or purpura. No mucous membrane lesions. No Bullseye lesion. Neuro: No focal neurologic deficits. Again, well-hydrated and nontoxic in appearance. 1. Tick bite of right thigh, initial encounter (S70.190X) - Tick embedded in the right posterior thigh, noticed approximately an hour ago; no signs of erythema migrans, hemapsis, or cellulitis. - Tick removed with tweezers. - Administered a prophylactic one-time dose of doxycycline to prevent Lyme disease. - Advised to monitor for signs of infection or Lyme disease, including redness, swelling, pus, bullseye lesion, body aches, fever, headache, and joint aches. - The tick was removed from your right posterior thigh with tweezers. - You received a one-time dose of doxycycline to help prevent Lyme disease. - Check the bite site for increasing redness, swelling, pus, or a ?bullseye? (ring-shaped) rash. - Monitor for fever, headache, body aches, or joint pain. - If you notice any of these signs or develop a bullseye rash, call our office to discuss further treatment. Recording using [employer] software for draft documentation of the visit was discussed with the patient/authorized auto service representative; all questions welcomed and answered. Patient/authorized auto service representative agreed to proceed Differential Diagnosis: Is extensive but includes dermatitis, tinea, molluscum, cellulitis, viral exanthem, Kawasaki's disease, scarlatina, erythema multiforme, Chinchilla-Tristan syndrome, TEN, staphylococcal scalded skin syndrome, etc. Plan: Homegoing. I discussed the differential, results and discharge plan with the patient and/or family/friend/caregiver if present. I emphasized the importance of follow-up with the physician I referred them to in the timeframe recommended. Additional verbal discharge instructions were also given and discussed with the patient to supplement those generated by the EMR. We also discussed medications that were prescribed (if any) including common side effects and interactions. The patient was advised to abstain from driving, operating heavy machinery or making significant decisions while taking medications such as opiates and muscle relaxers that may impair this. All questions were addressed. They understand return precautions and discharge instructions. The sameera (more content not included)... [facility] 12-09-2024 History of Present illness Narrative Immunizations are up to date. PAST MEDICAL HISTORY Diagnosis Date Depression Diabetes (HCC) Hyperlipidemia Hypertension Hypothyroidism Stroke (HCC) Medications: aspirin 81 mg chewable tablet Take 81 mg by mouth once daily. levothyroxine (SYNTHROID) 150 mcg tablet Take 150 mcg by mouth daily before breakfast. sertraline (ZOLOFT) 100 mg tablet Take 150 mg by mouth once daily. hydroCHLOROthiazide (HYDRODIURIL, ESIDRIX) 25 mg tablet Take 25 mg by mouth once daily. clopidogrel (PLAVIX) 75 mg tablet Take 75 mg by mouth once daily. amLODIPine (NORVASC) 5 mg tablet Take 5 mg by mouth once daily. atorvastatin (LIPITOR) 80 mg tablet Take 80 mg by mouth once daily. metformin HCl (METFORMIN ORAL) Take by mouth. GLYBURIDE ORAL Take by mouth. doxycycline hyclate (VIBRAMYCIN) 100 mg capsule Take 2 capsules by mouth once daily for 1 day. GABAPENTIN ORAL Take by mouth. (Patient not taking: Reported on 12/09/2024) PAST SURGICAL HISTORY Procedure Laterality Date BYP OTH/THN VEIN COMMON-IPSILATERAL CAROTID Carotid Endarectomy Social History Tobacco Use Smoking status: Former Current packs/day: 0.00 Types: Cigarettes Quit date: 06/2017 Years since quittin.5 Smokeless tobacco: Never Substance Use Topics Alcohol use: Yes Comment: rare Drug use: Never Vital Signs: BP 120/74 Pulse 75 Temp 36.8 C (98.2 F) (Oral) Resp 18 Ht 179.1 cm (5' 10.5) Wt 116.1 kg (255 lb 15.3 oz) SpO2 96% BMI 36.21 kg/m The patient is a 64-year-old male presenting for a tick bite on the right posterior thigh. Tick Bite: - Noticed an embedded tick on the right posterior thigh approximately one hour ago. - Denies fever, nausea, emesis, or myalgias. - Frequently works outside, often near wooded areas. - History of a tick bite on the chest two years ago, which developed a bullseye rash and took a month to resolve. Constitutional: (-) fever Gastrointestinal: (-) nausea, (-) vomiting Musculoskeletal: (-) myalgia No Cp, Sob. Physical Exam: General: Vitals noted, no distress. Afebrile. Age-appropriate. Interactive. Well-hydrated. Nontoxic. Cardiac: Regular, rate, rhythm, no murmur. Pulmonary: Lungs clear bilaterally with good aeration. No adventitious breath sounds. Extremities: No peripheral edema. Neurovascularly intact throughout. Skin: Tick embedded in right posterior thigh, no erythema migrans, hematoma, or cellulitis. Is blanchable. No evidence of secondary infection. No petechiae or purpura. No mucous membrane lesions. No Bullseye lesion. Neuro: No focal neurologic deficits. Again, well-hydrated and nontoxic in appearance. 1. Tick bite of right thigh, initial encounter (S70.741A) - Tick embedded in the right posterior thigh, noticed approximately an hour ago; no signs of erythema migrans, hemapsis, or cellulitis. - Tick removed with tweezers. - Administered a prophylactic one-time dose of doxycycline to prevent Lyme disease. - Advised to monitor for signs of infection or Lyme disease, including redness, swelling, pus, bullseye lesion, body aches, fever, headache, and joint aches. - The tick was removed from your right posterior thigh with tweezers. - You received a one-time dose of doxycycline to help prevent Lyme disease. - Check the bite site for increasing redness, swelling, pus, or a bullseye (ring-shaped) rash. - Monitor for fever, headache, body aches, or joint pain. - If you notice any of these signs or develop a bullseye rash, call our office to discuss further treatment. Recording using [employer] software for draft documentation of the visit was discussed with the patient/authorized auto service representative; all questions welcomed and answered. Patient/authorized auto service representative agreed to proceed Differential Diagnosis: Is extensive but includes dermatitis, tinea, molluscum, cellulitis, viral exanthem, Kawasaki's disease, scarlatina, erythema multiforme, Chinchilla-Tristan syndrome, TEN, staphylococcal scalded skin syndrome, etc. Plan: Homegoing. I discussed the differential, results and discharge plan with the patient and/or family/friend/caregiver if present. I emphasized the importance of follow-up with the physician I referred them to in the timeframe recommended. Additional verbal discharge instructions were also given and discussed with the patient to supplement those generated by the EMR. We also discussed medications that were prescribed (if any) including common side effects and interactions. The patient was advised to abstain from driving, operating heavy machinery or making significant decisions while taking medications such as opiates and muscle relaxers that may impair this. All questions were addressed. They understand return precautions and discharge instructions. The patient and/or family/friend/caregiver expressed understanding. Disposition: Discharge Allie Grande PA-C documented in this encounter [facility] 12-09-2024 Instructions Allie Grande PA-C - 12/09/2024 1:22 PM EDT - The tick was removed from your right posterior thigh with tweezers. - You received a one-time dose of doxycycline to help prevent Lyme disease. - Check the bite site for increasing redness, swelling, pus, or a bullseye (ring-shaped) rash. - Monitor for fever, headache, body aches, or joint pain. - If you notice any of these signs or develop a bullseye rash, call our office to discuss further treatment. documented in this encounter [facility] 11-05-2024 Evaluation + Plan note Associated Problem(s): History of ischemic right MCA stroke Chronic, stable. Residual L UE neuropathy. On secondary prevention with DAPT and high intensity status. S/P R CEA. Needs L CEA due to progression stenosis. [facility] 11-05-2024 Note Chronic, stable. Res idual L UE neuropathy. On secondary prevention with DAPT and high intensity status. S/P R CEA. Needs L CEA due to progression stenosis. [facility] 11-05-2024 Evaluation + Plan note Associated Problem(s): Recurrent mild major depressive disorder with anxiety (HCC) Chronic, stable. Monitor off medication. Planted a garden which brings him leslie. [facility] 11-05-2024 Miscellaneous Notes Associated Problem(s): History of ischemic right MCA stroke Chronic, stable. Residual L UE neuropathy. On secondary prevention with DAPT and high intensity status. S/P R CEA. Needs L CEA due to progression stenosis. Associated Problem(s): Recurrent mild major depressive disorder with anxiety (HCC) Chronic, stable. Monitor off medication. Planted a garden which brings him leslie. Associated Problem(s): Hyperlipidemia Chronic, uncontrolled. Last LDL 121. Still not regularly taking atorvastatin 80mg daily. Sites stress of caring for and her elderly uncle. Plan to repeat lipid panel once taking atorvastatin 80mg daily for 2-4 weeks. Has been at goal of LDL<70 on this dose in past. Associated Problem(s): Type 2 diabetes mellitus without complication, without long-term current use of insulin (HCC) Chronic, controlled. Due for 6 month follow up HgA1c. Very mild proteinuria on last screening- would repeat to confirm. Plan for repeat urine at next visit. Continue metformin and healthy diet. Has been doing time restricted eating. Eats 12-8pm. No lows. Associated Problem(s): Hypothyroid Chronic, uncontrolled. Outside TSH not available to me but pt reports was elevated so L CEA cancelled. Since then has been taking 225mcg every morning on empty stomach w/other pills. No MVI or tums. Repeat TSH today. Was uncontrolled due to infrequently taking levothyhroxine. On wt appropriate dose. Associated Problem(s): Carotid artery stenosis, asymptomatic, bilateral Chronic, stable. Hx R CEA and R MCA atheroembolic stroke 2018. Since last visit has re-established w/Dr. Atkinson and was planned for L CEA given progression of stenosis to 70-79% but procedure cancelled due to uncontrolled hypothryoid. Continue high intensity statin and DAPT. Associated Problem(s): Hypertension Chronic, stable. BP at goal today. Switched from [facility] to [facility] since last visit. New Rx sent for amlodipien 5mg daily and hydrochlorothiazide 25 mg daily. 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 Not related to DM2. Stopped effexor since last visit. Tolerating symptoms and does not desire medication at this time. documented in this encounter [facility] 11-05-2024 Evaluation + Plan note Associated Problem(s): Hyperlipidemia Chronic, uncontrolled. Last LDL 121. Still not regularly taking atorvastatin 80mg daily. Sites stress of caring for and her elderly uncle. Plan to repeat lipid panel once taking atorvastatin 80mg daily for 2-4 weeks. Has been at goal of LDL<70 on this dose in past. [facility] [employer] 11-05-2024 Evaluation + Plan note Associated Problem(s): Type 2 diabetes mellitus without complication, without long-term current use of insulin (HCC) Chronic, controlled. Due for 6 month follow up HgA1c. Very mild proteinuria on last screening- would repeat to confirm. Plan for repeat urine at next visit. Continue metformin and healthy diet. Has been doing time restricted eating. Eats 12-8pm. No lows. [facility] 11-05-2024 Evaluation + Plan note Associated Problem(s): Hypothyroid Chronic, uncontrolled. Outside TSH not available to me but pt reports was elevated so L CEA cancelled. Since then has been taking 225mcg every morning on empty stomach w/other pills. No MVI or tums. Repeat TSH today. Was uncontrolled due to infrequently taking levothyhroxine. On wt appropriate dose. [facility] 11-05-2024 Evaluation + Plan note Associated Problem(s): Carotid artery stenosis, asymptomatic, bilateral Chronic, stable. Hx R CEA and R MCA atheroembolic stroke 2018. Since last visit has re-established w/Dr. Atkinson and was planned for L CEA given progression of stenosis to 70-79% but procedure cancelled due to uncontrolled hypothryoid. Continue high intensity statin and DAPT. [facility] [employer] 11-05-2024 Evaluation + Plan note Associated Problem(s): Hypertension Chronic, stable. BP at goal today. Switched from [facility] to [facility] since last visit. New Rx sent for amlodipien 5mg daily and hydrochlorothiazide 25 mg daily. 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 Not related to DM2. Stopped effexor since last visit. Tolerating symptoms and does not desire medication at this time. [facility] 11-04-2024 History of Present illness Narrative NOE time with patient: 3min, AG (initial vitals) Images from the original note were not included. [facility] - [address] [address] Dept: [phone] Dept Loc: [phone] 11/04/2024 Visit type: Routine Follow up visit Reason for Visit: Hypothyroidism ASSESSMENT/PLAN 1. Type 2 diabetes mellitus with hyperglycemia, without long-term current use of insulin (HCC) Assessment & Plan: Chronic, controlled. Due for 6 month follow up HgA1c. Very mild proteinuria on last screening- would repeat to confirm. Plan for repeat urine at next visit. Continue metformin and healthy diet. Has been doing time restricted eating. Eats 12-8pm. No lows. Orders: - atorvastatin (Lipitor) 80 MG tablet; Take 1 tablet (80 mg) by mouth every evening., Starting [facility] 11/04/2024, Normal - metFORMIN XR (Glucophage-XR) 500 MG 24 hr tablet; Take 2 tablets (1,000 mg) by mouth 2 times daily (with meals)., Starting [facility] 11/04/2024, Normal - Hemoglobin A1c 2. Encounter for colorectal cancer screening - Cologuard colon cancer screening 3. Mixed hyperlipidemia Assessment & Plan: Chronic, uncontrolled. Last LDL 121. Still not regularly taking atorvastatin 80mg daily. Sites stress of caring for and her elderly uncle. Plan to repeat lipid panel once taking atorvastatin 80mg daily for 2-4 weeks. Has been at goal of LDL<70 on this dose in past. Orders: - atorvastatin (Lipitor) 80 MG tablet; Take 1 tablet (80 mg) by mouth every evening., Starting [facility] 11/04/2024, Normal 4. History of ischemic right MCA stroke Assessment & Plan: Chronic, stable. Residual L UE neuropathy. On secondary prevention with DAPT and high intensity status. S/P R CEA. Needs L CEA due to progression stenosis. Orders: - atorvastatin (Lipitor) 80 MG tablet; Take 1 tablet (80 mg) by mouth every evening., Starting [facility] 11/04/2024, Normal - clopidogrel (Plavix) 75 MG tablet; Take 1 tablet (75 mg) by mouth daily., Starting [facility] 11/04/2024, Normal 5. Type 2 diabetes mellitus with diabetic neuropathy, without long-term current use of insulin (HCC) 6. Primary hypertension Assessment & Plan: Chronic, stable. BP at goal today. Switched from [facility] to [facility] pharmacy since last visit. New Rx sent for amlodipien 5mg daily and hydrochlorothiazide 25 mg daily. Orders: - amLODIPine (Norvasc) 5 MG tablet; Take 1 tablet (5 mg) by mouth daily., Starting [facility] 11/04/2024, Normal 7. Hypothyroidism, unspecified type Assessment & Plan: Chronic, uncontrolled. Outside TSH not available to me but pt reports was elevated so L CEA cancelled. Since then has been taking 225mcg every morning on empty stomach w/other pills. No MVI or tums. Repeat TSH today. Was uncontrolled due to infrequently taking levothyhroxine. On wt appropriate dose. Orders: - TSH - levothyroxine (Synthroid, Levoxyl) 75 MCG tablet; Take 3 tablets (225 mcg) by mouth daily., Starting [facility] 11/04/2024, Normal 8. 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 Not related to DM2. Stopped effexor since last visit. Tolerating symptoms and does not desire medication at this time. 9. Type 2 diabetes mellitus without complication, without long-term current use of insulin (HCC) Assessment & Plan: Chronic, controlled. Due for 6 month follow up HgA1c. Very mild proteinuria on last screening- would repeat to confirm. Plan for repeat urine at next visit. Continue metformin and healthy diet. Has been doing time restricted eating. Eats 12-8pm. No lows. 10. Recurrent mild major depressive disorder with anxiety (HCC) Assessment & Plan: Chronic, stable. Monitor off medication. Planted a garden which brings him leslie. Follow up in about 3 months (around 02/04/2025) for GRACIE w/Josefa or Rosalba or me. Subjective Patient: Luis Espino is a 64 y.o. male HPI HLP- hasn't been taking atorvastatin regularly since last checked. Reviewed LDL above goal of <70 and recommendation for taking daily. Carotid Stenosis- no new neuro sx. Has residual L UE neuropathy from prior R MCA stroke. L CEA was scheduled but cancelled due to elevated TSH. Wasn't taking levothyroxine. Has been taking daily for 4 weeks. Check TSH today Mild Depression- doing ok. Stopped venlafaxine after last visit as doesn't really want to take meds. No SI. Planted a garden. Ongoing caregiver stress DM2- doing time restricted eating. Eats 12-8pm. No lows. No GI side effects. Taking metformin. Due for HgA1c today. Wt coming down- BMI is down to 35. From high of 43 in 2020. Colon Cancer screening- did not do cologuard. Received kit but got busy. Would like to complete colon cancer screening. Review of Systems Allergies[1] Current Medications[2] Medical History[3] Surgical History[4] Family History[5] Social History Tobacco Use Smoking status: Former Current packs/day: 0.00 Types: Cigarettes Quit date: 2017 Years since quittin.4 Smokeless tobacco: Never Substance Use Topics Alcohol use: Yes Alcohol/week: 1.0 standard drink of alcohol Objective BP 129/72 (BP Location: Right arm, Patient Position: Sitting, BP Cuff Size: Large adult) Pulse 67 Temp 36.5 C (97.7 F) (Temporal) Ht 5' 11 (1.803 m) Wt 257 lb (117 kg) SpO2 96% BMI 35.84 kg/m Physical Exam Vitals reviewed. Constitutional: Appearance: He is obese. Eyes: General: No scleral icterus. Conjunctiva/sclera: Conjunctivae normal. Neck: Vascular: No carotid bruit. Comments: Well healed R CEA scar. Cardiovascular: Rate and Rhythm: Normal rate and regular rhythm. Heart sounds: No murmur heard. No friction rub. No gallop. Pulmonary: Effort: Pulmonary effort is normal. No respiratory distress. Breath sounds: No wheezing, rhonchi or rales. Musculoskeletal: Right lower leg: No edema. Left lower leg: No edema. Skin: General: Skin is warm and dry. Neurological: Mental Status: He is alert and oriented to person, place, and time. Gait: Gait normal. Psychiatric: Mood and Affect: Mood normal. Behavior: Behavior normal. Thought Content: Thought content normal. Judgment: Judgment normal. Data Reviewed and Summarized: Medical decision making including: See Assessment/Plan [facility] Signed by: Rachel Rangel DO, Electronically signed on: 11/05/2024 [1] Allergies Allergen Reactions Duloxetine Nausea Only Penicillins Rash [2] Current Outpatient Medications: amLODIPine (Norvasc) 5 MG tablet, Take 1 tablet (5 mg) by mouth daily., Disp: 90 tablet, Rfl: 3 aspirin 81 MG EC tablet, Take 1 tablet by mouth in the morning., Disp: , Rfl: atorvastatin (Lipitor) 80 MG tablet, Take 1 tablet (80 mg) by mouth every evening., Disp: 90 tablet, Rfl: 3 clopidogrel (Plavix) 75 MG tablet, Take 1 tablet (75 mg) by mouth daily., Disp: 90 tablet, Rfl: 3 levothyroxine (Synthroid, Levoxyl) 75 MCG tablet, Take 3 tablets (225 mcg) by mouth daily., Disp: 270 tablet, Rfl: 3 metFORMIN XR (Glucophage-XR) 500 MG 24 hr tablet, Take 2 tablets (1,000 mg) by mouth 2 times daily (with meals)., Disp: 360 tablet, Rfl: 3 [3] Past Medical History: Diagnosis Date Acute right arterial ischemic stroke, middle cerebral artery (MCA) ([facility]) 06/11/2017 Carotid artery stenosis, symptomatic, bilateral DM2 (diabetes mellitus, type 2) ([facility]) 2018 Erectile dysfunction Hyperlipidemia Hypertension Hypothyroid [4] Past Surgical History: Procedure Laterality Date CAROTID ENDARTERECTOMY Right 06/16/2017 Dr Mart Atkinson CHOLECYSTECTOMY 1992 [5] Family History Problem Relation Name Age of Onset Breast cancer Mother Alcohol abuse Father Other ([id number]) Mother documented in this encounter [facility] 10-19-2024 Telephone encounter Note Thanks- reviewed chart. On wt appropriate dose of levothyroxine. Expect to be euthyroid w/consistent daily usage of levothyroxine. [facility] 10-19-2024 Miscellaneous Notes Thanks- reviewed chart. On wt appropriate dose of levothyroxine. Expect to be euthyroid w/consistent daily usage of levothyroxine. documented in this encounter [facility] 10-19-2024 Note Received voicemail f rom Terrance stating that he was suppose to have vascular procedure r/t his left carotid but had to postpone due to abnormal thyroid level. Called and spoke to Terrance today. He reports not always taking medications as prescribed. Had to move in with 92 yo uncle to provide care. Terrance states is experiencing issues with liver, and fractured her spine. Has been taking care of her as well. Levothyroxine dose seems to be good per Terrance. Reinforced med adherence. Reviewed Dr Rangel's recommendations from June r/t abnormal thyroid levels with patient. Patient states procedure for today was suppose to be on Left carotid, clean out / stenting. Currently having no symptoms at this time. Following with Dr Atkinson at [facility]. Plan: Scheduled follow up with Dr Rangel for November 04. Appears Terrance cancelled his August appointment due to not feeling well. Routing to Dr Rangel to see if there are any additional recommendations. [facility] 10-19-2024 History of Present illness Narrative Received voicemail from Terrance stating that he was suppose to have vascular procedure r/t his left carotid but had to postpone due to abnormal thyroid level. Called and spoke to Terrance today. He reports not always taking medications as prescribed. Had to move in with 92 yo uncle to provide care. Terrance states is experiencing issues with liver, and fractured her spine. Has been taking care of her as well. Levothyroxine dose seems to be good per Terrance. Reinforced med adherence. Reviewed Dr Rangel's recommendations from June r/t abnormal thyroid levels with patient. Patient states procedure for today was suppose to be on Left carotid, clean out / stenting. Currently having no symptoms at this time. Following with Dr Atkinson at [facility]. Plan: Scheduled follow up with Dr Rangel for November 04. Appears Terrance cancelled his August appointment due to not feeling well. Routing to Dr Rangel to see if there are any additional recommendations. documented in this encounter [facility] 08-17-2024 History of Present illness Narrative Reached patient today on 3rd attempt of calling back. Still hasn't decided if he wants to proceed with left CEA. Will call him back in 2 weeks. Aubrie Palmer MD Vascular Surgery 08/17/2024 11:38 AM documented in this encounter [facility] 08-06-2024 Evaluation note Diagnosis Onset Date Resolution Carotid artery stenosis chronic August 06, 2024 10:40am Carotid artery stenosis chronic September 20, 2024 10:16am [facility] Work Phone: 1(611) 360-530903-07-2025 Evaluation note* Diagnosis Onset Date Resolution Status Admit Date Carotid artery stenosis chronic M arch 2024 10:40am Carotid artery stenosis chronic A pril 2024 10:16am Carotid artery stenosis chronic J une 2024 11:39am [facility] Work Phone: 1(353) 846-812402-03-2025 History of Present illness Narrative* Aubrie Palmer MD - 07/05/2024 9:00 AM EST Vascular Surgery Outpatient Consultation Chief Complaint Patient presents with New Patient (ref Dr. Rachel Rangel) ETL TESTER eval for left carotid stenosis; CU 11/18/23, s/p right CEA 2017 - Dr. Atkinson Reason for Consult: left carotid stenosis HISTORY OF PRESENT ILLNESS: The patient is a 64 y.o. male gentleman with left carotid stenosis. About 7 years ago he had a right sided stroke and had a right CEA. He has had no stroke since then. He denies amaurosis fugax, hemiparesis, facial drooping, and dysarthria. He has been on ASA, Px, and Lipitor for years. He quit smoking years ago. He denies chest pain/SOB. Does his ADLs. Past medical, surgical, and social histories reviewed. Medications reviewed. Past Medical History: Past Medical History: Diagnosis Date Acute right arterial ischemic stroke, middle cerebral artery (MCA) ([facility]) 06/11/2017 Carotid artery stenosis, symptomatic, bilateral DM2 (diabetes mellitus, type 2) ([facility]) 2017 Erectile dysfunction Hyperlipidemia Hypertension Hypothyroid Past Surgical History: Past Surgical History: Procedure Laterality Date CAROTID ENDARTERECTOMY Right 06/16/2017 Dr Mart Atkinson CHOLECYSTECTOMY 1992 Current Medications: Prior to Admission medications Medication Sig Start Date End Date Taking? Authorizing Provider amLODIPine (Norvasc) 5 MG tablet Take 1 tablet (5 mg) by mouth daily. 06/10/24 Rachel Rangel, DO aspirin 81 MG EC tablet Take 1 tablet by mouth in the morning. 02/04/19 Historical Provider, atorvastatin (Lipitor) 80 MG tablet Take 1 tablet (80 mg) by mouth every evening. 06/10/24 Rachel Rangel, DO clopidogrel (Plavix) 75 MG tablet Take 1 tablet (75 mg) by mouth daily. 06/10/24 Rachel Rangel, DO levothyroxine (Synthroid, Levoxyl) 75 MCG tablet Take 3 tablets (225 mcg) by mouth daily. 06/10/24 Rachel Rangel, DO metFORMIN XR (Glucophage-XR) 500 MG 24 hr tablet Take 2 tablets (1,000 mg) by mouth 2 times daily (with meals). 06/10/24 Rachel Rangel, DO Allergies: Duloxetine and Penicillins Social History Socioeconomic History Marital status: Spouse name: Not on file Number of children: Not on file Years of education: Not on file Highest education level: Not on file Occupational History Not on file Tobacco Use Smoking status: Former Current packs/day: 0.00 Types: Cigarettes Quit date: 2017 Years since quittin.0 Smokeless tobacco: Never Substance and Sexual Activity Alcohol use: Yes Alcohol/week: 1.0 standard drink of alcohol Drug use: No Sexual activity: Not on file Other Topics Concern Not on file Social History Narrative Not on file Social Drivers of Health Financial Resource Strain: Not on file Food Insecurity: Not on file Transportation Needs: Not on file Physical Activity: Not on file Stress: Not on file Social Connections: Not on file Intimate Partner Violence: Not on file Housing Stability: Not on file Family History Problem Relation Name Age of Onset Breast cancer Mother Alcohol abuse Father Other ([id number]) Mother Review of Systems Constitutional: Negative. HENT: Negative. Eyes: Positive for visual disturbance (double vision x 1 month ago; due to A1C). Respiratory: Negative. Cardiovascular: Negative. Gastrointestinal: Negative. Endocrine: Negative. Genitourinary: Negative. Musculoskeletal: Negative. Skin: Negative. Allergic/Immunologic: Negative. Neurological: Negative. Hematological: Negative. Psychiatric/Behavioral: Negative. LABS: Lab Results Component Value Date CREATININE 0.92 06/10/2024 Lab Results Component Value Date WBC 6.3 06/10/2024 HGB 15.8 06/10/2024 HCT 47.7 06/10/2024 MCV 95.8 06/10/2024 PLT 234 06/10/2024 No results found for: INR, PROTIME No results found for: VLDL Physical Exam General: no apparent distress, resting comfortably, easily ambulates in room Neurologic: no focal deficits Respiratory: normal respiratory effort on room air Cardiac: regular rate Abdomen: Skin: right neck CEA scar; no lesions or rashes Vascular: symmetric radial pulses Carotid duplex: left ICA with velocites of 321 cm/s suggestive of 70-79% stenosis; no significant pathology in other carotid/verts/SCAs. IMPRESSION/RECOMMENDATIONS: Problem List Items Addressed This Visit None Visit Diagnoses Asymptomatic stenosis of left carotid artery - Primary 64M with asymptomatic left carotid stenosis. I offered left carotid endarterectomy given severity of stenosis and patient's young age with long life expectancy. He would like to discuss with butfeels he will proceed. Dicussed carotid disease with patient. Discussed stroke risk of 2% per year which is cumulative, thus if he lives 10 years, he has 20% stroke risk. Discussed medical management. Discussed TCAR and CEA. Discussed risks and benefits of CEA discussed, inlcuding but not limited to stroke (1%), myocardial infarction and other cardiorespiratory complications, bleeding including transfusion and airway compromise, infection, nerve injury, and . If he wishes to proceed, will obtain CEA neck. Continue DAPT and statin for now. Aubrie Palmer MD Vascular Surgery 07/05/2024 9:53 AM documented in this [facility] Chief Complaint Patient presents with New Patient (ref Dr. Rachel Rangel) ETL TESTER eval for left carotid stenosis; CU 11/18/23, s/p right CEA 2017 - Dr. Atkinson Reason for Consult: left carotid stenosis HISTORY OF PRESENT ILLNESS: The patient is a 64 y.o. male gentleman with left carotid stenosis. About 7 years ago he had a right sided stroke and had a right CEA. He has had no stroke since then. He denies amaurosis fugax, hemiparesis, facial drooping, and dysarthria. He has been on ASA, Px, and Lipitor for years. He quit smoking years ago. He denies chest pain/SOB. Does his ADLs. Past medical, surgical, and social histories reviewed. Medications reviewed. Past Medical History: Past Medical History: Diagnosis Date Acute right arterial ischemic stroke, middle cerebral artery (MCA) ([facility]) 06/11/2017 Carotid artery stenosis, symptomatic, bilateral DM2 (diabetes mellitus, type 2) ([facility]) 2018 Erectile dysfunction Hyperlipidemia Hypertension Hypothyroid Past Surgical History: Past Surgical History: Procedure Laterality Date CAROTID ENDARTERECTOMY Right 06/16/2017 Dr Mart Atkinson CHOLECYSTECTOMY 1992 Current Medications: Prior to Admission medications Medication Sig Start Date End Date Taking? Authorizing Provider amLODIPine (Norvasc) 5 MG tablet Take 1 tablet (5 mg) by mouth daily. 06/10/24 Rachel Rangel, DO aspirin 81 MG EC tablet Take 1 tablet by mouth in the morning. 02/04/19 Historical Provider, atorvastatin (Lipitor) 80 MG tablet Take 1 tablet (80 mg) by mouth every evening. 06/10/24 Rachel Rangel DO clopidogrel (Plavix) 75 MG tablet Take 1 tablet (75 mg) by mouth daily. 06/10/24 Rachel Rangel DO levothyroxine (Synthroid, Levoxyl) 75 MCG tablet Take 3 tablets (225 mcg) by mouth daily. 06/10/24 Rachel Rangel DO metFORMIN XR (Glucophage-XR) 500 MG 24 hr tablet Take 2 tablets (1,000 mg) by mouth 2 times daily (with meals). 06/10/24 Rachel Rangel DO Allergies: Duloxetine and Penicillins Social History Socioeconomic History Marital status: Spouse name: Not on file Number of children: Not on file Years of education: Not on file Highest education level: Not on file Occupational History Not on file Tobacco Use Smoking status: Former Current packs/day: 0.00 Types: Cigarettes Quit date: 2017 Years since quittin.0 Smokeless tobacco: Never Substance and Sexual Activity Alcohol use: Yes Alcohol/week: 1.0 standard drink of alcohol Drug use: No Sexual activity: Not on file Other Topics Concern Not on file Social History Narrative Not on file Social Drivers of Health Financial Resource Strain: Not on file Food Insecurity: Not on file Transportation Needs: Not on file Physical Activity: Not on file Stress: Not on file Social Connections: Not on file Intimate Partner Violence: Not on file Housing Stability: Not on file Family History Problem Relation Name Age of Onset Breast cancer Mother Alcohol abuse Father Other ([id number]) Mother Review of Systems Constitutional: Negative. HENT: Negative. Eyes: Positive for visual disturbance (double vision x 1 month ago; due to A1C). Respiratory: Negative. Cardiovascular: Negative. Gastrointestinal: Negative. Endocrine: Negative. Genitourinary: Negative. Musculoskeletal: Negative. Skin: Negative. Allergic/Immunologic: Negative. Neurological: Negative. Hematological: Negative. Psychiatric/Behavioral: Negative. LABS: Lab Results Component Value Date CREATININE 0.92 06/10/2024 Lab Results Component Value Date WBC 6.3 06/10/2024 HGB 15.8 06/10/2024 HCT 47.7 06/10/2024 MCV 95.8 06/10/2024 PLT 234 06/10/2024 No results found for: INR, PROTIME No results found for: VLDL Physical Exam General: no apparent distress, resting comfortably, easily ambulates in room Neurologic: no focal deficits Respiratory: normal respiratory effort on room air Cardiac: regular rate Abdomen: Skin: right neck CEA scar; no lesions or rashes Vascular: symmetric radial pulses Carotid duplex: left ICA with velocites of 321 cm/s suggestive of 70-79% stenosis; no significant pathology in other carotid/verts/SCAs. IMPRESSION/RECOMMENDATIONS: Problem List Items Addressed This Visit None Visit Diagnoses Asymptomatic stenosis of left carotid artery - Primary 64M with asymptomatic left carotid stenosis. I offered left carotid endarterectomy given severity of stenosis and patient's young age with long life expectancy. He would like to discuss with but feels he will proceed. Dicussed carotid disease with patient. Discussed stroke risk of 2% per year which is cumulative, thus if he lives 10 years, he has 20% stroke risk. Discussed medical management. Discussed TCAR and CEA. Discussed risks and benefits of CEA discussed, inlcuding but not limited to stroke (1%), myocardial infarction and other c (more content not included)...[facility] 06-11-2024 Evaluation + Plan note* Assessment & Plan Note - Rachel Rangel DO - 06/11/2024 11:11 PM ESTAssociated Problem(s): Double vision New issue. Etiology unclear. Reports has resolved and was evaluated by optho. Not sure optho name so will get me name so we can request records. Aware of yearly need for dilated eye exam given hx DM2to screen for retinopathy. [facility] [id number] Miscellaneous Notes* Assessment & Plan Note - Rachel Rangel DO - 06/11/2024 11:11 PM ESTAssociated Problem(s): Double vision New issue. Etiology unclear. Reports has resolved and was evaluated by optho. Not sure optho name so will get me name so we can request records. Aware of yearly need for dilated eye exam given hx DM2to screen for retinopathy. * Assessment & Plan Note - Rachel Rangel DO - 06/11/2024 11:09 PM EST Associated Problem(s): History of ischemic right MCA stroke Chronic, stable. Residual L UE neuropathy. On secondary prevention with DAPT and high intensity status. S/P R CEA. * Assessment & Plan Note - Rachel Rangel DO - 06/11/2024 11:09 PM EST Associated Problem(s): Recurrent mild major depressive disorder with anxiety (HCC) Chronic, stable. He reported mood ok and denies SI. Not sure if effexor 37.5mg helps or not but is not taking regularly. 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 * Assessment & Plan Note - Rachel Rangel DO - 06/11/2024 11:08 PM EST Associated Problem(s): Hyperlipidemia Chronic, controlled. Continue atorvastatin 80mg. Tolerating although has read articles that make him nervous to take it. Inquires if better alternative. Reviewed PSK9 and ezetimibe as alternate options but really best data w/statin for his situation. Agreeable to continue statin as is a critical medication for secondary stroke prevention for him given his stroke was likely atheroembolic from carotid artery atherosclerosis. * Assessment & Plan Note - Rachel Rangel DO - 06/11/2024 11:06 PM EST Associated Problem(s): Type 2 diabetes mellitus with hyperglycemia, without long-term current use of insulin (HCC) Chronic, uncontrolled and overdue for HgA1c. Diet has not been good given stress of caregiver role.Has missed doses metformin. Recommended GLP1 for dual indication and CVD risk reduction. Pt desiresto continue max dose metformin and work to get back with his diet and exercise. Follow up 3 months HgA1c. * Assessment & Plan Note - Rachel Rangel DO - 06/11/2024 11:05 PM EST Associated Problem(s): Hypothyroid Chronic, uncontrolled w/TSH above goal. Hard to interpret TSH in setting of missed doses. Regardless will check TSH today. Continue 225mcg daily for now. * Assessment & Plan Note - Rachel Rangel DO - 06/11/2024 11:04 PM EST Associated Problem(s): Class 2 severe obesity due to excess calories with serious comorbidity and body mass index (BMI) of 38.0 to 38.9 in adult (HCC) Chronic, stable. Reviewed benefits of GLP1 for both his DM2 and cardiovascular risk reduction. Leery of additional medication. Has done well w/meditteranean diet in past and just hasn't been able to do it give need to care for . * Assessment & Plan Note - Rachel Rangel DO - 06/11/2024 11:03 PM EST Associated Problem(s): Carotid artery stenosis, symptomatic, bilateral Chronic, L artery progressed on last US to 70-79% from <50%. Reviewed w/him today. Agreeable to seeing Dr. Atkinson who did R CEA. Continue aggressive secondary prevention w/statin (LDL goal <70), ASA and plavix. No bleeding issues. * Assessment & Plan Note - Rachel Rangel DO - 06/11/2024 11:00 PM EST Associated Problem(s): Hypertension Chronic, stable and at goal today although likely at goal due to recent GI illness and decreased pointake as has not been taking BP meds regularly. Continue [id number] daily and hydrochlorothiazide 25mg daily. 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 Doing ok off gabapentin. Has symptoms buttolerates and prefers to avoid medication. Only taking effexor intermittently at best so unsure if helpful or not. documented in this [facility]01-10-2025 Evaluation + Plan note* Assessment & Plan Note - Rachel Rangel DO - 06/11/2024 11:09 PM EST Associated Problem(s): History of ischemic right MCA stroke Chronic, stable. Residual L UE neuropathy. On secondary prevention with DAPT and high intensity status. S/P R CEA. [facility] [id number] Evaluation + Plan note* Assessment & Plan Note - Rachel Rangel DO - 06/11/2024 11:09 PM ESTAssociated Problem(s): Recurrent mild major depressive disorder with anxiety (HCC) Chronic, stable. He reported mood ok and denies SI. Not sure if effexor 37.5mg helps or not but is not taking regularly. 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 [facility] [id number] Evaluation + Plan note* Assessment & Plan Note - Rachel Rangel DO - 06/11/2024 11:08 PM ESTAssociated Problem(s): Hyperlipidemia Chronic, controlled. Continue atorvastatin 80mg. Tolerating although has read articles that make him nervous to take it. Inquires if better alternative. Reviewed PSK9 and ezetimibe as alternate options but really best data w/statin for his situation. Agreeable to continue statin as is a critical medication for secondary stroke prevention for him given his stroke was likely atheroembolic from carotid artery atherosclerosis. [facility] [id number] Evaluation + Plan note* Assessment & Plan Note - Rachel Rangel DO - 06/11/2024 11:06 PM ESTAssociated Problem(s): Type 2 diabetes mellitus with hyperglycemia, without long-term current use of insulin ([facility]) Chronic, uncontrolled and overdue for HgA1c. Diet has not been good given stress of caregiver role.Has missed doses metformin. Recommended GLP1 for dual indication and CVD risk reduction. Pt desiresto continue max dose metformin and work to get back with his diet and exercise. Follow up 3 months HgA1c. [facility] [id number] Evaluation + Plan note* Assessment & Plan Note - Rachel Rangel DO - 06/11/2024 11:05 PM ESTAssociated Problem(s): Hypothyroid Chronic, uncontrolled w/TSH above goal. Hard to interpret TSH in setting of missed doses. Regardless will check TSH today. Continue 225mcg daily for now. [facility] [id number] Evaluation + Plan note* Assessment & Plan Note - Rachel Rangel DO - 06/11/2024 11:04 PM ESTAssociated Problem(s): Class 2 severe obesity due to excess calories with serious comorbidity and body mass index (BMI) of 38.0 to 38.9 in adult (HCC) Chronic, stable. Reviewed benefits of GLP1 for both his DM2 and cardiovascular risk reduction. Leery of additional medication. Has done well w/meditteranean diet in past and just hasn't been able to do it give need to care for . [facility] [id number] Evaluation + Plan note* Assessment & Plan Note - Rachel Rangel DO - 06/11/2024 11:03 PM ESTAssociated Problem(s): Carotid artery stenosis, symptomatic, bilateral Chronic, L artery progressed on last US to 70-79% from <50%. Reviewed w/him today. Agreeable to seeing Dr. Atkinson who did R CEA. Continue aggressive secondary prevention w/statin (LDL goal <70), ASA and plavix. No bleeding issues. [facility] [id number] NoteChronic, L artery progressed on last US to 70-79% from <50%. Reviewed w/him today. Agreeable to seeing Dr. Atkinson who did R CEA. Continue aggressive secondary prevention w/statin (LDL goal <70), ASA and plavix. No bleeding issues.[facility]01-10-2025 Evaluation + Plan note* Assessment & Plan Note - Rachel Rangel DO - 06/11/2024 11:00 PM ESTAssociated Problem(s): Hypertension Chronic, stable and at goal today although likely at goal due to recent GI illness and decreased pointake as has not been taking BP meds regularly. Continue [id number] daily and hydrochlorothiazide 25mg daily. 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 Doing ok off gabapentin. Has symptoms buttolerates and prefers to avoid medication. Only taking effexor intermittently at best so unsure if helpful or not. [facility] [id number] History of Present illness Narrative* Major May MA - 06/10/2024 1:45 PM EST Noe time with patient 6 minutes Major May * Rachelterrance Rangel DO - 06/10/2024 1:45 PM EST Images from the original note were not included. [facility] - [address] [facility] [address] Dept: [phone] Dept Loc: [phone] 06/10/2024 Visit type: Routine Follow up visit Reason for Visit: Diabetes (REGULAR VISIT ) ASSESSMENT/PLAN 1. Type 2 diabetes mellitus with hyperglycemia, without long-term current use of insulin (HCC) Assessment & Plan: Chronic, uncontrolled and overdue for HgA1c. Diet has not been good given stress of caregiver role.Has missed doses metformin. Recommended GLP1 for dual indication and CVD risk reduction. Pt desiresto continue max dose metformin and work to get back with his diet and exercise. Follow up 3 months HgA1c. Orders: - Hemoglobin A1c - Microalbumin / creatinine urine ratio - Comprehensive metabolic panel - atorvastatin (Lipitor) 80 MG tablet; Take 1 tablet (80 mg) by mouth every evening., Starting Linda 06/10/2024, Normal - CBC - metFORMIN XR (Glucophage-XR) 500 MG 24 hr tablet; Take 2 tablets (1,000 mg) by mouth 2 times daily (with meals)., Starting Linda 06/10/2024, Normal 2. Encounter for colorectal cancer screening 3. Recurrent mild major depressive disorder with anxiety (HCC) Assessment & Plan: Chronic, stable. He reported mood ok and denies SI. Not sure if effexor 37.5mg helps or not but is not taking regularly. 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 4. Hypothyroidism, unspecified type Assessment & Plan: Chronic, uncontrolled w/TSH above goal. Hard to interpret TSH in setting of missed doses. Regardless will check TSH today. Continue 225mcg daily for now. Orders: - TSH - levothyroxine (Synthroid, Levoxyl) 75 MCG tablet; Take 3 tablets (225 mcg) by mouth daily., Starting Fri06/10/2024, Normal 5. Mixed hyperlipidemia Assessment & Plan: Chronic, controlled. Continue atorvastatin 80mg. Tolerating although has read articles that make him nervous to take it. Inquires if better alternative. Reviewed PSK9 and ezetimibe as alternate options but really best data w/statin for his situation. Agreeable to continue statin as is a critical medication for secondary stroke prevention for him given his stroke was likely atheroembolic from carotid artery atherosclerosis. Orders: - Lipid panel - atorvastatin (Lipitor) 80 MG tablet; Take 1 tablet (80 mg) by mouth every evening., Starting Fri06/10/2024, Normal 6. Class 2 severe obesity due to excess calories with serious comorbidity and body mass index (BMI)of 38.0 to 38.9 in adult (HCC) Assessment & Plan: Chronic, stable. Reviewed benefits of GLP1 for both his DM2 and cardiovascular risk reduction. Leery of additional medication. Has done well w/meditteranean diet in past and just hasn't been able to do it give need to care for . 7. History of ischemic right MCA stroke Assessment & Plan: Chronic, stable. Residual L UE neuropathy. On secondary prevention with DAPT and high intensity status. S/P R CEA. Orders: - atorvastatin (Lipitor) 80 MG tablet; Take 1 tablet (80 mg) by mouth every evening., Starting Fri06/10/2024, Normal - [facility] - clopidogrel (Plavix) 75 MG tablet; Take 1 tablet (75 mg) by mouth daily., Starting Fri06/10/2024, Normal 8. Primary hypertension Assessment & Plan: Chronic, stable and at goal today although likely at goal due to recent GI illness and decreased pointake as has not been taking BP meds regularly. Continue [id number] daily and hydrochlorothiazide 25mg daily. Orders: - amLODIPine (Norvasc) 5 MG tablet; Take 1 tablet (5 mg) by mouth daily., Starting Fri06/10/2024, Normal 9. Carotid artery stenosis, symptomatic, bilateral Assessment & Plan: Chronic, L artery progressed on last US to 70-79% from <50%. Reviewed w/him today. Agreeable to seeing Dr. Atkinson who did R CEA. Continue aggressive secondary prevention w/statin (LDL goal <70), ASA and plavix. No bleeding issues. Orders: - [facility] Surgery 10. Neuropathy Assessment & Plan: Chronic stable L finger neuropathy 07/04 R MCA stroke 2017. Doing ok off gabapentin. Has symptoms buttolerates and prefers to avoid medication. Only taking effexor intermittently at best so unsure if helpful or not. Follow up in about 3 months (around 09/08/2024) for a1c. Subjective Patient: Luis Espino is a 64 y.o. male HPI Under more stress- moved in with 90 year old family member ('s uncle) to help care for him. has DOW and has had to have frequent admission for fluid overload. Double Vision- started in May. Saw eye doctor. Was told to wear eye patch. Double vision has since resolved. Record not available to me today. Has follow up with eye doctor 07/14 DM2- weight down 10 pounds since last year but reports is b/c had URI and GI illness going around last couple weeks so appetite has been gone. Now feeling better, tolerating po. HTN- hasn't been checking BP at home. Hasn't taken BP med in 2 weeks. Hypothyroid- only taking intermittently. Hasn't taken in at least a month. Review of Systems Allergies Allergen Reactions Duloxetine Nausea Only Penicillins Rash Outpatient Medications Prior to Visit Medication Sig Dispense Refill aspirin 81 MG EC tablet Take 1 tablet by mouth in the morning. amLODIPine (Norvasc) 5 MG tablet Take 1 tablet by mouth once daily 90 tablet 1 atorvastatin (Lipitor) 80 MG tablet Take 1 tablet (80 mg) by mouth every evening. 90 tablet 2 clopidogrel (Plavix) 75 MG tablet Take 1 tablet by mouth once daily 90 tablet 2 hydroCHLOROthiazide (HYDRODiuril) 25 MG tablet Take 1 tablet (25 mg) by mouth daily. 90 tablet 3 levothyroxine (Synthroid, Levoxyl) 75 MCG tablet Take 3 tablets (225 mcg) by mouth daily. 270 tablet 3 metFORMIN XR (Glucophage-XR) 500 MG 24 hr tablet Take 2 tablets (1,000 mg) by mouth in the morning and 2 tablets (1,000 mg) in the evening. Take with meals. 360 tablet 1 venlafaxine XR (Effexor XR) 37.5 MG 24 hr capsule Take 1 capsule (37.5 mg) by mouth daily. 90 capsule 1 No facility-administered medications prior to visit. Past Medical History: Diagnosis Date Acute right arterial ischemic stroke, middle cerebral artery (MCA) ([facility]) 06/11/2017 Carotid artery stenosis, symptomatic, bilateral DM2 (diabetes mellitus, type 2) ([facility]) 2017 Erectile dysfunction Hyperlipidemia Hypertension Hypothyroid Past Surgical History: Procedure Laterality Date CAROTID ENDARTERECTOMY Right 06/16/2017 Dr Mart Atkinson CHOLECYSTECTOMY 1993 Family History Problem Relation Name Age of Onset Breast cancer Mother Alcohol abuse Father Other ([id number]) Mother Social History Tobacco Use Smoking status: Former Current packs/day: 0.00 Types: Cigarettes Quit date: 2017 Years since quittin.0 Smokeless tobacco: Never Substance Use Topics Alcohol use: Yes Alcohol/week: 1.0 standard drink of alcohol Objective BP 126/66 (BP Location: Right arm, Patient Position: Sitting, BP Cuff Size: Large adult) Pulse 67 Temp 36.7 C (98.1 F) (Temporal) Ht 5' 11 (1.803 m) Wt 264 lb (120 kg) SpO2 95% Comment: ROOM AIR BMI 36.82 kg/m Physical Exam Vitals reviewed. Constitutional: Appearance: He is obese. Eyes: General: No scleral icterus. Conjunctiva/sclera: Conjunctivae normal. Neck: Vascular: No carotid bruit. Comments: Well healed R CEA scar. Cardiovascular: Rate and Rhythm: Normal rate and regular rhythm. Heart sounds: No murmur heard. No friction rub. No gallop. Pulmonary: Effort: Pulmonary effort is normal. No respiratory distress. Breath sounds: No wheezing, rhonchi or rales. Musculoskeletal: Right lower leg: No edema. Left lower leg: No edema. Skin: General: Skin is warm and dry. Neurological: Mental Status: He is alert and oriented to person, place, and time. Gait: Gait normal. Psychiatric: Mood and Affect: Mood normal. Behavior: Behavior normal. Thought Content: Thought content normal. Judgment: Judgment normal. Data Reviewed and Summarized: Medical decision making including: See Assessment/Plan [facility] Signed by: Rachel Rangel DO, documented in this [facility]12-22-2023 Evaluation + Plan note* Assessment & Plan Note - Rachel Rangel DO - 05/23/2023 11:13 PM EST Associated Problem(s): History of ischemic right MCA stroke Chronic, stable. Residual L UE neuropathy. On secondary prevention with DAPT and high intensity status. S/P R CEA. [facility] [id number] Miscellaneous Notes* Assessment & Plan Note - Rachel Rangel DO - 05/23/2023 11:13 PM ESTAssociated Problem(s): History of ischemic right MCA stroke Chronic, stable. Residual L UE neuropathy. On secondary prevention with DAPT and high intensity status. S/P R CEA. * Assessment & Plan Note - Rachel Rangel DO - 05/23/2023 11:11 PM EST Associated Problem(s): Recurrent mild major depressive disorder with anxiety (HCC) Chronic, status uknown. Declined PHQ9. PHQ2 was 0 but still with sx of lack of energy. Many of his sx could be related to likely VAL and poor control thyroid. Continues to have anxiety related to having another stroke. Plan to take effexor at current dose regularly and follow up 4 weeks for possible med titration. * Assessment & Plan Note - Rachel Rangel DO - 05/23/2023 11:10 PM EST Associated Problem(s): Hyperlipidemia Chronic, controlled. Continue atorvastatin 80mg. Discussed this is a critical medication for secondary stroke prevention for him given his stroke was likely atheroembolic from carotid artery atherosclerosis. * Assessment & Plan Note - Rachel Rangel DO - 05/23/2023 11:08 PM EST Associated Problem(s): Type 2 diabetes mellitus with hyperglycemia, without long-term current use of insulin (HCC) Chronic, uncontrolled. Has fallen off with healthy diet and exercise. Also missed doses of metformin. Recommended GLP1 for dual indication and CVD risk reduction. Pt desires to continue max dose metformin and work to get back with his diet and exercise. Follow up 3 months HgA1c. * Assessment & Plan Note - Rachel Rangel DO - 05/23/2023 11:07 PM EST Associated Problem(s): Hypothyroid Chronic, uncontrolled. Hard to interpret TSH in setting of missed doses. Regardless will check TSH today. Continue 225mcg daily for now. No symptoms hyperthyroid. * Assessment & Plan Note - Rachel Rangel DO - 05/23/2023 11:06 PM EST Associated Problem(s): Class 2 severe obesity due to excess calories with serious comorbidity and body mass index (BMI) of 38.0 to 38.9 in adult Chronic, stable. Discussed initiating GLP1 today to help with uncontrolled DM2 and obesity. Pt desires to try to get back on Mediterranean diet as that has really helped in past. * Assessment & Plan Note - Rachel Rangel DO - 05/23/2023 11:04 PM EST Associated Problem(s): Carotid artery stenosis, symptomatic, bilateral Chronic, status uknown. Encouraged reachign out to [facility] for appt with Dr. Justice as remains on DAPT. Tolerating without bleeding issues. Continue high intensity statin. * Assessment & Plan Note - Rachel Rangel DO - 05/23/2023 11:03 PM EST Associated Problem(s): Hypertension Chronic, above goal today. Didn't take BP meds today so no adjustment made. Addressed barriers to regularly taking meds. Continue [id number] daily and hydrochlorothiazide 25mg daily. * Assessment & Plan Note - Rachel Rangel DO - 05/23/2023 11:00 PM EST Associated Problem(s): Neuropathy Chronic stable L finger neuropathy / R MCA stroke 2017. Desires to trial off gabapentin. Given hasn't really been taking effexor will take effexor 37.5 mg daily. Follow up scheduled w/me in 4 weeksto eval how sx are off gabapentin. Likely increase efffexor at that visit to see if can reduce pillburden. * Assessment & Plan Note - Rachel Rangel DO - 05/23/2023 10:59 PM EST Associated Problem(s): Hypersomnolence Chronic, uncontrolled. Suspect VAL. Has had sleep studies ordered in past. Offered to re-order today. Agree to re-visit at next appt. documented in this [facility]12-22-2023 Evaluation + Plan note* Assessment & Plan Note - Rachel Rangel DO - 05/23/2023 11:11 PM EST Associated Problem(s): Recurrent mild major depressive disorder with anxiety (HCC) Chronic, status uknown. Declined PHQ9. PHQ2 was 0 but still with sx of lack of energy. Many of his sx could be related to likely VAL and poor control thyroid. Continues to have anxiety related to having another stroke. Plan to take effexor at current dose regularly and follow up 4 weeks for possible med titration. [facility] [id number] Evaluation + Plan note* Assessment & Plan Note - Rachel Rangel DO - 05/23/2023 11:10 PM ESTAssociated Problem(s): Hyperlipidemia Chronic, controlled. Continue atorvastatin 80mg. Discussed this is a critical medication for secondary stroke prevention for him given his stroke was likely atheroembolic from carotid artery atherosclerosis. [facility] [id number] Evaluation + Plan note* Assessment & Plan Note - Rachel Rangel DO - 05/23/2023 11:08 PM ESTAssociated Problem(s): Type 2 diabetes mellitus with hyperglycemia, without long-term current use of insulin (HCC) Chronic, uncontrolled. Has fallen off with healthy diet and exercise. Also missed doses of metformin. Recommended GLP1 for dual indication and CVD risk reduction. Pt desires to continue max dose metformin and work to get back with his diet and exercise. Follow up 3 months HgA1c. [facility] [id number] Evaluation + Plan note* Assessment & Plan Note - Rachel Rangel DO - 05/23/2023 11:07 PM ESTAssociated Problem(s): Hypothyroid Chronic, uncontrolled. Hard to interpret TSH in setting of missed doses. Regardless will check TSH today. Continue 225mcg daily for now. No symptoms hyperthyroid. [facility] [id number] Evaluation + Plan note* Assessment & Plan Note - Rachel Rangel DO - 05/23/2023 11:06 PM ESTAssociated Problem(s): Class 2 severe obesity due to excess calories with serious comorbidity and body mass index (BMI) of 38.0 to 38.9 in adult Chronic, stable. Discussed initiating GLP1 today to help with uncontrolled DM2 and obesity. Pt desires to try to get back on Mediterranean diet as that has really helped in past. [facility]12-22-2023 Evaluation + Plan note* Assessment & Plan Note - Rachel Rangel DO - 05/23/2023 11:04 PM ESTAssociated Problem(s): Carotid artery stenosis, symptomatic, bilateral Chronic, status uknown. Encouraged reachign out to [facility] for appt with Dr. Justice as remains on DAPT. Tolerating without bleeding issues. Continue high intensity statin. [facility]12-22-2023 Evaluation + Plan note* Assessment & Plan Note - Rachel Rangel DO - 05/23/2023 11:03 PM ESTAssociated Problem(s): Hypertension Chronic, above goal today. Didn't take BP meds today so no adjustment made. Addressed barriers to regularly taking meds. Continue [id number] daily and hydrochlorothiazide 25mg daily. [facility]12-22-2023 Evaluation + Plan note* Assessment & Plan Note - Rachel Rangel DO - 05/23/2023 11:00 PM ESTAssociated Problem(s): Neuropathy Chronic stable L finger neuropathy 2/2 R MCA stroke 2017. Desires to trial off gabapentin. Given hasn't really been taking effexor will take effexor 37.5 mg daily. Follow up scheduled w/me in 4 weeksto eval how sx are off gabapentin. Likely increase efffexor at that visit to see if can reduce pillburden. [facility]12-22-2023 Evaluation + Plan note* Assessment & Plan Note - Rachel Rangel DO - 05/23/2023 10:59 PM ESTAssociated Problem(s): Hypersomnolence Chronic, uncontrolled. Suspect VAL. Has had sleep studies ordered in past. Offered to re-order today. Agree to re-visit at next appt. [facility] [id number] History of Present illness Narrative* Rachel Rangel DO - 05/22/2023 12:45 PM EST Images from the original note were not included. [facility] [address] [facility] [id number] Dept: [phone] Dept Loc: [phone] 05/22/2023 Visit type: follow up Reason for Visit: Diabetes and Hypertension (Yearly visit) ASSESSMENT/PLAN 1. Type 2 diabetes mellitus with hyperglycemia, without long-term current use of insulin (HCC) Assessment & Plan: Chronic, uncontrolled. Has fallen off with healthy diet and exercise. Also missed doses of metformin. Recommended GLP1 for dual indication and CVD risk reduction. Pt desires to continue max dose metformin and work to get back with his diet and exercise. Follow up 3 months HgA1c. Orders: - AMB POC HEMOGLOBIN A1C - metFORMIN XR (Glucophage-XR) 500 MG 24 hr tablet; Take 2 tablets (1,000 mg) by mouth in the morning and 2 tablets (1,000 mg) in the evening. Take with meals., Starting Linda 05/22/2023, Normal 2. Primary hypertension Assessment & Plan: Chronic, above goal today. Didn't take BP meds today so no adjustment made. Addressed barriers to regularly taking meds. Continue [id number] daily and hydrochlorothiazide 25mg daily. Orders: - Comprehensive metabolic panel - CBC - hydroCHLOROthiazide (HYDRODiuril) 25 MG tablet; Take 1 tablet (25 mg) by mouth daily., Starting Linda 05/22/2023, Until 05/16/2024, Normal 3. Class 2 severe obesity due to excess calories with serious comorbidity and body mass index (BMI)of 38.0 to 38.9 in adult Assessment & Plan: Chronic, stable. Discussed initiating GLP1 today to help with uncontrolled DM2 and obesity. Pt desires to try to get back on Mediterranean diet as that has really helped in past. 4. Hypothyroidism, unspecified type Assessment & Plan: Chronic, uncontrolled. Hard to interpret TSH in setting of missed doses. Regardless will check TSH today. Continue 225mcg daily for now. No symptoms hyperthyroid. Orders: - TSH - levothyroxine (Synthroid, Levoxyl) 75 MCG tablet; Take 3 tablets (225 mcg) by mouth daily., Starting Linda 05/22/2023, Normal 5. Mixed hyperlipidemia Assessment & Plan: Chronic, controlled. Continue atorvastatin 80mg. Discussed this is a critical medication for secondary stroke prevention for him given his stroke was likely atheroembolic from carotid artery atherosclerosis. Orders: - Comprehensive metabolic panel - Lipid panel - atorvastatin (Lipitor) 80 MG tablet; Take 1 tablet (80 mg) by mouth every evening., Starting Linda 05/22/2023, Normal 6. History of ischemic right MCA stroke Assessment & Plan: Chronic, stable. Residual L UE neuropathy. On secondary prevention with DAPT and high intensity status. S/P R CEA. Orders: - atorvastatin (Lipitor) 80 MG tablet; Take 1 tablet (80 mg) by mouth every evening., Starting [facility] 05/22/2023, Normal 7. Neuropathy Assessment & Plan: Chronic stable L finger neuropathy 2/2 R MCA stroke 2018. Desires to trial off gabapentin. Given hasn't really been taking effexor will take effexor 37.5 mg daily. Follow up scheduled w/me in 4 weeksto eval how sx are off gabapentin. Likely increase efffexor at that visit to see if can reduce pillburden. Orders: - venlafaxine XR (Effexor XR) 37.5 MG 24 hr capsule; Take 1 capsule (37.5 mg) by mouth daily., Starting [facility] 05/22/2023, Normal 8. Recurrent mild major depressive disorder with anxiety (HCC) Assessment & Plan: Chronic, status uknown. Declined PHQ9. PHQ2 was 0 but still with sx of lack of energy. Many of his sx could be related to likely VAL and poor control thyroid. Continues to have anxiety related to having another stroke. Plan to take effexor at current dose regularly and follow up 4 weeks for possible med titration. Orders: - venlafaxine XR (Effexor XR) 37.5 MG 24 hr capsule; Take 1 capsule (37.5 mg) by mouth daily., Starting Linda 05/22/2023, Normal 9. Carotid artery stenosis, symptomatic, bilateral Assessment & Plan: Chronic, status uknown. Encouraged reachign out to [facility] for appt with Dr. Justice as remains on DAPT. Tolerating without bleeding issues. Continue high intensity statin. Orders: - Vascular US carotid artery duplex bilateral 10. Encounter for hepatitis C screening test for low risk patient - Hepatitis C antibody 11. Hypersomnolence Assessment & Plan: Chronic, uncontrolled. Suspect VAL. Has had sleep studies ordered in past. Offered to re-order today. Agree to re-visit at next appt. Follow up in about 3 months (around 08/21/2023) for a1c; health maintenance. Subjective Patient: Luis Espino is a 62 y.o. male here for follow up on multiple chronic medical conditions. Has been over a year since last visit and has not had 3 month follow up visit or TSH from April 2022. HPI Taking care of 's uncle which has added stress. Hadn't really been taking medications regularlyover last year- was off of them for about 3 month and recently started taking meds again 3 weeks ago. DM2- Last HgA1c 8.7 from April 2022. Today is 9.1. Previously 6.2 in August 2021. Currently on max dose metformin. Last visit discussed GLP1. Has done well with Mediterreanean diet in past but today reports tired of cooking for himself. Hasn't been hiking as much as he did last fall. Tolerating metformin w/o SE. Weight stable since last visit. No foot wounds or numbness. Hypothyroid- 0.8 in August 2021; previously had been very high 2/2 missed doses and/or taking it w/things that reduce absorption. Currently taking three 75mcg tabs daily. Started taking it again about3 weeks ago. Last TSH in December 2021 was 0.062 so slightly supratherapeutic. It had taken us so long to find the right dose and he was asymptomatic so we did not reduce his dose at that time. Plan was to do TSH in 3 months which has not happened. Today continues to deny tremor, sweats, increased stool frequency. Hasn't missed many doses in last 3 weeks, previously was taking intermittently. When doesn't take pills he doesn't take any of them. Obesity- weight had been decreasing w/euthyroid, diet change and exercise. Today is back up 12lbs. Attributes to poor diet and less activity. HTN- BP near goal today. Hasn't taken his meds today. Tolerating amlodipine 5mg daily and hydrochlorothiazide 25 daily w/o leg swelling, DOVER or muscle cramps, polyuria, frequency. Anxiety/depression- stable. PHQ9 was 9 and GAD7 was 4 in December. PhQ 2 was 0 today. Hasn't really been taking effexor regularly. Not sure if can tell difference in mood or L UE neuropathy. No SI. Primary complaint is fatigue but admits to being woken up multiple times nightly by and dogs. Additionally has never had his likely VAL evaluated. Desires to continue effexor at current dose. Post Stroke Neuropathy/Chronic L shoulder pain- would like to be on less meds. Goes through phases where doesn't want to take meds. In past has had issues remembering middle of day dose so now [id number] in morning and 100mg at night. Doing well w/that regimen. Has also been on effexor for dual indication. Hasn't really been taking effexor regularly. Denies numbness/tingling in feet. Only has post stroke L arm neuropathic pain. Carotid Artery Stenosis w/hx atheroembolic R MCA stroke Jun 2017- past due for annual follow up with Dr. Justice. On secondary prevention w/high intensity statin, smoking cessation, and DAPT. No hx bleeding events. No melena or blood in stools. No easy bruising. Last carotid US 2020 Review of Systems - see HPI Allergies Allergen Reactions Duloxetine Nausea Only Penicillins Rash Outpatient Medications Prior to Visit Medication Sig Dispense Refill amLODIPine (Norvasc) 5 MG tablet Take 1 tablet by mouth once daily 90 tablet 3 aspirin 81 MG EC tablet Take 1 tablet by mouth in the morning. clopidogrel (Plavix) 75 MG tablet Take 1 tablet by mouth once daily 90 tablet 2 atorvastatin (Lipitor) 80 MG tablet TAKE 1 TABLET BY MOUTH ONCE DAILY IN THE EVENING 90 tablet 0 gabapentin (Neurontin) 100 MG capsule TAKE 1 CAPSULE BY MOUTH THREE TIMES DAILY FOR 90 DAYS 270 capsule 3 hydroCHLOROthiazide (HYDRODiuril) 25 MG tablet Take 1 tablet by mouth once daily 90 tablet 0 levothyroxine (Synthroid, Levoxyl) 75 MCG tablet Take 3 tablets by mouth once daily 270 tablet 0 metFORMIN XR (Glucophage-XR) 500 MG 24 hr tablet TAKE 2 TABLETS BY MOUTH TWICE DAILY WITH MEALS 360tablet 0 venlafaxine XR (Effexor XR) 37.5 MG 24 hr capsule Take 1 capsule by mouth once daily 90 capsule 3 No facility-administered medications prior to visit. Past Medical History: Diagnosis Date Acute right arterial ischemic stroke, middle cerebral artery (MCA) ([facility]) 06/11/2017 Carotid artery stenosis, symptomatic, bilateral DM2 (diabetes mellitus, type 2) ([facility]) 2017 Erectile dysfunction Hyperlipidemia Hypertension Hypothyroid Past Surgical History: Procedure Laterality Date CAROTID ENDARTERECTOMY Right 06/16/2017 Dr Mart Atkinson CHOLECYSTECTOMY 1993 Family History Problem Relation Name Age of Onset Breast cancer Mother Alcohol abuse Father Other ([address]) Mother Social History Tobacco Use Smoking status: Former Types: Cigarettes Quit date: 2017 Years since quittin.9 Smokeless tobacco: Never Substance Use Topics Alcohol use: Yes Alcohol/week: 1.0 standard drink of alcohol Objective BP 137/71 (BP Location: Right arm, Patient Position: Sitting, BP Cuff Size: Large adult) Pulse 71 Temp 36.7 C (98.1 F) (Temporal) Ht 5' 11 (1.803 m) Wt 274 lb 8 oz (125 kg) SpO2 94% BMI 38.28 kg/m Physical Exam Vitals reviewed. Constitutional: Appearance: He is obese. Eyes: General: No scleral icterus. Conjunctiva/sclera: Conjunctivae normal. Neck: Vascular: No carotid bruit. Comments: Well healed R CEA scar. Cardiovascular: Rate and Rhythm: Normal rate and regular rhythm. Heart sounds: No murmur heard. No friction rub. No gallop. Pulmonary: Effort: Pulmonary effort is normal. No respiratory distress. Breath sounds: No wheezing, rhonchi or rales. Musculoskeletal: Right lower leg: No edema. Left lower leg: No edema. Skin: General: Skin is warm and dry. Neurological: Mental Status: He is alert and oriented to person, place, and time. Gait: Gait normal. Psychiatric: Mood and Affect: Mood normal. Behavior: Behavior normal. Thought Content: Thought content normal. Judgment: Judgment normal. Data Reviewed and Summarized: Medical decision making including: See Assessment/Plan Goals [facility] Rachel Rangel DO 05/23/2023 * Marleny Mcmullen RN - 05/22/2023 12:45 PM EST .Nursing time with patient 5 minutes. Marleny ALICEA documented in this [facility]12-21-2023 Instructions* Patient Instructions* Rachel Rangel DO - 05/22/2023 12:45 PM EST To schedule your procedure, please call the following number: Central Scheduling [phone] documented in this [facility]12-04-2023 Telephone encounter Note* Telephone Encounter - Rachel Rangel DO - 05/05/2023 5:28 PM EST E-rx sent. Has appt with me later this month. [id number] Miscellaneous Notes* Telephone Encounter - Rachel Rangel DO - 05/05/2023 5:28 PM EST E-rx sent. Has appt with me later this month. documented in this [facility]11-29-2023 History of Present illness Narrative* Maria Fernanda Arthur LPN - 04/30/2023 10:54 AM EST Left voicemail to schedule patient for office visit and medication refills documented in this [facility]11-29-2023 History of Present illness Narrative* Maria Fernanda Arthur LPN - 04/30/2023 10:54 AM EST Left voicemail to schedule patient for office visit and medication refills * Mina Blount RN - 04/30/2023 10:54 AM EST Called and spoke to Luis Espino. Discussed need for office visit to update care, last office visit was in 04/2022. Terrance agreeable to coming in on 05/22/2023 and appointment was made. No other questions or concerns per patient. [facility]* Diagnosis Type 2 diabetes mellitus with hyperglycemia, without long-term current use of insulin ([facility]) Current moderate episode of major depressive disorder without prior episode ([facility]) Hypothyroidism, unspecified type documented in this encounter [facility] Work Phone: Evaluation note* Diagnosis Pure hypercholesterolemia documented in this encounter [facility] Work Phone: Evaluation note* Diagnosis Pneumonia due to infectious organism, unspecified laterality, unspecified part of lung documented in this encounter [facility] Work Phone: Evaluation note* Diagnosis Hypothyroidism, unspecified type documented in this encounter [facility] Work Phone: Evaluation note* Diagnosis Hypothyroidism, unspecified type Hypertension, unspecified type Mixed hyperlipidemia Class 2 severe obesity due to excess calories with serious comorbidity and body mass index (BMI) of 38.0 to 38.9 in adult (HCC) documented in this encounter [facility] Work Phone: Evaluation note* Diagnosis Type 2 diabetes mellitus with hyperglycemia, without long-term current use of insulin (HCC)- Primary Primary hypertension Unspecified essential hypertension Class 2 severe obesity due to excess calories with serious comorbidity and body mass index (BMI) of 38.0 to 38.9 in adult Hypothyroidism, unspecified type Mixed hyperlipidemia History of ischemic right MCA stroke Transient ischemic attack (TIA), and cerebral infarction without residual deficits Neuropathy Mononeuritis of unspecified site Recurrent mild major depressive disorder with anxiety (HCC) Carotid artery stenosis, symptomatic, bilateral Encounter for hepatitis C screening test for low risk patient Hypersomnolence Hypersomnia, unspecified [facility] Diagnosis Carotid artery stenosis, symptomatic, bilateral [facility] Diagnosis Type 2 diabetes mellitus with hyperglycemia, without long-term current use of insulin (HCC) Neuropathy Mononeuritis of unspecified site Recurrent mild major depressive disorder with anxiety (HCC) [facility]* Diagnosis Type 2 diabetes mellitus with hyperglycemia, without long-term current use of insulin (HCC)- Primary Screening for colon cancer Special screening for malignant neoplasms, colon Neuropathy Mononeuritis of unspecified site Primary hypertension Unspecified essential hypertension Carotid artery stenosis, symptomatic, bilateral Hypothyroidism, unspecified type Transaminitis Nonspecific elevation of levels of transaminase or lactic acid dehydrogenase (LDH) Mixed hyperlipidemia Depression with anxiety Dysthymic disorder Type 2 diabetes mellitus with hyperglycemia, without long-term current use of insulin (HCC)- Primary Primary hypertension Unspecified essential hypertension Class 2 severe obesity due to excess calories with serious comorbidity and body mass index (BMI) of 38.0 to 38.9 in adult (HCC) Hypothyroidism, unspecified type Mixed hyperlipidemia History of ischemic right MCA stroke Transient ischemic attack (TIA), and cerebral infarction without residual deficits Neuropathy Mononeuritis of unspecified site Recurrent mild major depressive disorder with anxiety (HCC) Carotid artery stenosis, symptomatic, bilateral Encounter for hepatitis C screening test for low risk patient Hypersomnolence Hypersomnia, unspecified Type 2 diabetes mellitus with hyperglycemia, without long-term current use of insulin (HCC)- Primary Encounter for colorectal cancer screening Recurrent mild major depressive disorder with anxiety (HCC) Hypothyroidism, unspecified type Mixed hyperlipidemia Class 2 severe obesity due to excess calories with serious comorbidity and body mass index (BMI) of 38.0 to 38.9 in adult (HCC) History of ischemic right MCA stroke Transient ischemic attack (TIA), and cerebral infarction without residual deficits Primary hypertension Unspecified essential hypertension Carotid artery stenosis, symptomatic, bilateral Neuropathy Mononeuritis of unspecified site [facility]* Diagnosis Type 2 diabetes mellitus with hyperglycemia, without long-term current use of insulin (HCC)- Primary Screening for colon cancer Special screening for malignant neoplasms, colon Neuropathy Mononeuritis of unspecified site Primary hypertension Unspecified essential hypertension Carotid artery stenosis, symptomatic, bilateral Hypothyroidism, unspecified type Transaminitis Nonspecific elevation of levels of transaminase or lactic acid dehydrogenase (LDH) Mixed hyperlipidemia Depression with anxiety Dysthymic disorder Type 2 diabetes mellitus with hyperglycemia, without long-term current use of insulin (HCC)- Primary Primary hypertension Unspecified essential hypertension Class 2 severe obesity due to excess calories with serious comorbidity and body mass index (BMI) of 38.0 to 38.9 in adult (HCC) Hypothyroidism, unspecified type Mixed hyperlipidemia History of ischemic right MCA stroke Transient ischemic attack (TIA), and cerebral infarction without residual deficits Neuropathy Mononeuritis of unspecified site Recurrent mild major depressive disorder with anxiety (HCC) Carotid artery stenosis, symptomatic, bilateral Encounter for hepatitis C screening test for low risk patient Hypersomnolence Hypersomnia, unspecified Type 2 diabetes mellitus with hyperglycemia, without long-term current use of insulin (HCC)- Primary Encounter for colorectal cancer screening Recurrent mild major depressive disorder with anxiety (HCC) Hypothyroidism, unspecified type Mixed hyperlipidemia Class 2 severe obesity due to excess calories with serious comorbidity and body mass index (BMI) of 38.0 to 38.9 in adult (HCC) History of ischemic right MCA stroke Transient ischemic attack (TIA), and cerebral infarction without residual deficits Primary hypertension Unspecified essential hypertension Carotid artery stenosis, symptomatic, bilateral Neuropathy Mononeuritis of unspecified site Asymptomatic stenosis of left carotid artery- Primary [facility]* Diagnosis Type 2 diabetes mellitus with hyperglycemia, without long-term current use of insulin (HCC)- Primary Screening for colon cancer Special screening for malignant neoplasms, colon Neuropathy Mononeuritis of unspecified site Primary hypertension Unspecified essential hypertension Carotid artery stenosis, symptomatic, bilateral Hypothyroidism, unspecified type Transaminitis Nonspecific elevation of levels of transaminase or lactic acid dehydrogenase (LDH) Mixed hyperlipidemia Depression with anxiety Dysthymic disorder Type 2 diabetes mellitus with hyperglycemia, without long-term current use of insulin (HCC)- Primary Primary hypertension Unspecified essential hypertension Class 2 severe obesity due to excess calories with serious comorbidity and body mass index (BMI) of 38.0 to 38.9 in adult (HCC) Hypothyroidism, unspecified type Mixed hyperlipidemia History of ischemic right MCA stroke Transient ischemic attack (TIA), and cerebral infarction without residual deficits Neuropathy Mononeuritis of unspecified site Recurrent mild major depressive disorder with anxiety (HCC) Carotid artery stenosis, symptomatic, bilateral Encounter for hepatitis C screening test for low risk patient Hypersomnolence Hypersomnia, unspecified Type 2 diabetes mellitus with hyperglycemia, without long-term current use of insulin (HCC)- Primary Encounter for colorectal cancer screening Recurrent mild major depressive disorder with anxiety (HCC) Hypothyroidism, unspecified type Mixed hyperlipidemia Class 2 severe obesity due to excess calories with serious comorbidity and body mass index (BMI) of 38.0 to 38.9 in adult (HCC) History of ischemic right MCA stroke Transient ischemic attack (TIA), and cerebral infarction without residual deficits Primary hypertension Unspecified essential hypertension Carotid artery stenosis, symptomatic, bilateral Neuropathy Mononeuritis of unspecified site Occlusion and stenosis of unspecified carotid artery documented in this encounter [facility]* Diagnosis Type 2 diabetes mellitus with hyperglycemia, without long-term current use of insulin (HCC)- Primary Screening for colon cancer Special screening for malignant neoplasms, colon Neuropathy Mononeuritis of unspecified site Primary hypertension Unspecified essential hypertension Carotid artery stenosis, symptomatic, bilateral Hypothyroidism, unspecified type Transaminitis Nonspecific elevation of levels of transaminase or lactic acid dehydrogenase (LDH) Mixed hyperlipidemia Depression with anxiety Dysthymic disorder Type 2 diabetes mellitus with hyperglycemia, without long-term current use of insulin (HCC)- Primary Primary hypertension Unspecified essential hypertension Class 2 severe obesity due to excess calories with serious comorbidity and body mass index (BMI) of 38.0 to 38.9 in adult (HCC) Hypothyroidism, unspecified type Mixed hyperlipidemia History of ischemic right MCA stroke Transient ischemic attack (TIA), and cerebral infarction without residual deficits Neuropathy Mononeuritis of unspecified site Recurrent mild major depressive disorder with anxiety (HCC) Carotid artery stenosis, symptomatic, bilateral Encounter for hepatitis C screening test for low risk patient Hypersomnolence Hypersomnia, unspecified Type 2 diabetes mellitus with hyperglycemia, without long-term current use of insulin (HCC)- Primary Encounter for colorectal cancer screening Recurrent mild major depressive disorder with anxiety (HCC) Hypothyroidism, unspecified type Mixed hyperlipidemia Class 2 severe obesity due to excess calories with serious comorbidity and body mass index (BMI) of 38.0 to 38.9 in adult (HCC) History of ischemic right MCA stroke Transient ischemic attack (TIA), and cerebral infarction without residual deficits Primary hypertension Unspecified essential hypertension Carotid artery stenosis, symptomatic, bilateral Neuropathy Mononeuritis of unspecified site Type 2 diabetes mellitus with hyperglycemia, without long-term current use of insulin (HCC)- Primary Encounter for colorectal cancer screening Mixed hyperlipidemia History of ischemic right MCA stroke Transient ischemic attack (TIA), and cerebral infarction without residual deficits Type 2 diabetes mellitus with diabetic neuropathy, without long-term current use of insulin (HCC) Primary hypertension Unspecified essential hypertension Hypothyroidism, unspecified type Neuropathy Mononeuritis of unspecified site Type 2 diabetes mellitus without complication, without long-term current use of insulin (HCC) Recurrent mild major depressive disorder with anxiety ([facility]) documented in this encounter [facility]* Diagnosis Type 2 diabetes mellitus with hyperglycemia, without long-term current use of insulin ([facility])- Primary Screening for colon cancer Special screening for malignant neoplasms, colon Neuropathy Mononeuritis of unspecified site Primary hypertension Unspecified essential hypertension Carotid artery stenosis, symptomatic, bilateral Hypothyroidism, unspecified type Transaminitis Nonspecific elevation of levels of transaminase or lactic acid dehydrogenase (LDH) Mixed hyperlipidemia Depression with anxiety Dysthymic disorder Type 2 diabetes mellitus with hyperglycemia, without long-term current use of insulin (HCC)- Primary Primary hypertension Unspecified essential hypertension Class 2 severe obesity due to excess calories with serious comorbidity and body mass index (BMI) of 38.0 to 38.9 in adult (HCC) Hypothyroidism, unspecified type Mixed hyperlipidemia History of ischemic right MCA stroke Transient ischemic attack (TIA), and cerebral infarction without residual deficits Neuropathy Mononeuritis of unspecified site Recurrent mild major depressive disorder with anxiety (HCC) Carotid artery stenosis, symptomatic, bilateral Encounter for hepatitis C screening test for low risk patient Hypersomnolence Hypersomnia, unspecified Type 2 diabetes mellitus with hyperglycemia, without long-term current use of insulin (HCC)- Primary Encounter for colorectal cancer screening Recurrent mild major depressive disorder with anxiety (HCC) Hypothyroidism, unspecified type Mixed hyperlipidemia Class 2 severe obesity due to excess calories with serious comorbidity and body mass index (BMI) of 38.0 to 38.9 in adult (HCC) History of ischemic right MCA stroke Transient ischemic attack (TIA), and cerebral infarction without residual deficits Primary hypertension Unspecified essential hypertension Carotid artery stenosis, symptomatic, bilateral Neuropathy Mononeuritis of unspecified site Occlusion and stenosis of unspecified carotid artery- Primary Type 2 diabetes mellitus with hyperglycemia, without long-term current use of insulin (HCC)- Primary Encounter for colorectal cancer screening Mixed hyperlipidemia History of ischemic right MCA stroke Transient ischemic attack (TIA), and cerebral infarction without residual deficits Type 2 diabetes mellitus with diabetic neuropathy, without long-term current use of insulin (HCC) Primary hypertension Unspecified essential hypertension Hypothyroidism, unspecified type Neuropathy Mononeuritis of unspecified site Type 2 diabetes mellitus without complication, without long-term current use of insulin (HCC) Recurrent mild major depressive disorder with anxiety (HCC) documented in this encounter [facility]* Diagnosis Type 2 diabetes mellitus with hyperglycemia, without long-term current use of insulin (HCC)- Primary Screening for colon cancer Special screening for malignant neoplasms, colon Neuropathy Mononeuritis of unspecified site Primary hypertension Unspecified essential hypertension Carotid artery stenosis, symptomatic, bilateral Hypothyroidism, unspecified type Transaminitis Nonspecific elevation of levels of transaminase or lactic acid dehydrogenase (LDH) Mixed hyperlipidemia Depression with anxiety Dysthymic disorder Type 2 diabetes mellitus with hyperglycemia, without long-term current use of insulin (HCC)- Primary Primary hypertension Unspecified essential hypertension Class 2 severe obesity due to excess calories with serious comorbidity and body mass index (BMI) of 38.0 to 38.9 in adult (HCC) Hypothyroidism, unspecified type Mixed hyperlipidemia History of ischemic right MCA stroke Transient ischemic attack (TIA), and cerebral infarction without residual deficits Neuropathy Mononeuritis of unspecified site Recurrent mild major depressive disorder with anxiety (HCC) Carotid artery stenosis, symptomatic, bilateral Encounter for hepatitis C screening test for low risk patient Hypersomnolence Hypersomnia, unspecified Type 2 diabetes mellitus with hyperglycemia, without long-term current use of insulin (HCC)- Primary Encounter for colorectal cancer screening Recurrent mild major depressive disorder with anxiety (HCC) Hypothyroidism, unspecified type Mixed hyperlipidemia Class 2 severe obesity due to excess calories with serious comorbidity and body mass index (BMI) of 38.0 to 38.9 in adult (HCC) History of ischemic right MCA stroke Transient ischemic attack (TIA), and cerebral infarction without residual deficits Primary hypertension Unspecified essential hypertension Carotid artery stenosis, symptomatic, bilateral Neuropathy Mononeuritis of unspecified site Occlusion and stenosis of unspecified carotid artery- Primary Type 2 diabetes mellitus with hyperglycemia, without long-term current use of insulin (HCC)- Primary Encounter for colorectal cancer screening Mixed hyperlipidemia History of ischemic right MCA stroke Transient ischemic attack (TIA), and cerebral infarction without residual deficits Type 2 diabetes mellitus with diabetic neuropathy, without long-term current use of insulin (HCC) Primary hypertension Unspecified essential hypertension Hypothyroidism, unspecified type Neuropathy Mononeuritis of unspecified site Type 2 diabetes mellitus without complication, without long-term current use of insulin (HCC) Recurrent mild major depressive disorder with anxiety (HCC) [facility]* Diagnosis Tick bite of right thigh, initial encounter- Primary documented in this encounter [facility] note* Diagnosis Type 2 diabetes mellitus with hyperglycemia, without long-term current use of insulin (HCC)- Primary Screening for colon cancer Special screening for malignant neoplasms, colon Neuropathy Mononeuritis of unspecified site Primary hypertension Unspecified essential hypertension Carotid artery stenosis, symptomatic, bilateral Hypothyroidism, unspecified type Transaminitis Nonspecific elevation of levels of transaminase or lactic acid dehydrogenase (LDH) Mixed hyperlipidemia Depression with anxiety Dysthymic disorder Type 2 diabetes mellitus with hyperglycemia, without long-term current use of insulin (HCC)- Primary Primary hypertension Unspecified essential hypertension Class 2 severe obesity due to excess calories with serious comorbidity and body mass index (BMI) of 38.0 to 38.9 in adult (HCC) Hypothyroidism, unspecified type Mixed hyperlipidemia History of ischemic right MCA stroke Transient ischemic attack (TIA), and cerebral infarction without residual deficits Neuropathy Mononeuritis of unspecified site Recurrent mild major depressive disorder with anxiety (HCC) Carotid artery stenosis, symptomatic, bilateral Encounter for hepatitis C screening test for low risk patient Hypersomnolence Hypersomnia, unspecified Type 2 diabetes mellitus with hyperglycemia, without long-term current use of insulin (HCC)- Primary Encounter for colorectal cancer screening Recurrent mild major depressive disorder with anxiety (HCC) Hypothyroidism, unspecified type Mixed hyperlipidemia Class 2 severe obesity due to excess calories with serious comorbidity and body mass index (BMI) of 38.0 to 38.9 in adult (HCC) History of ischemic right MCA stroke Transient ischemic attack (TIA), and cerebral infarction without residual deficits Primary hypertension Unspecified essential hypertension Carotid artery stenosis, symptomatic, bilateral Neuropathy Mononeuritis of unspecified site Type 2 diabetes mellitus with hyperglycemia, without long-term current use of insulin (HCC)- Primary Encounter for colorectal cancer screening Mixed hyperlipidemia History of ischemic right MCA stroke Transient ischemic attack (TIA), and cerebral infarction without residual deficits Type 2 diabetes mellitus with diabetic neuropathy, without long-term current use of insulin (HCC) Primary hypertension Unspecified essential hypertension Hypothyroidism, unspecified type Neuropathy Mononeuritis of unspecified site Type 2 diabetes mellitus without complication, without long-term current use of insulin (HCC) Recurrent mild major depressive disorder with anxiety (HCC) Primary hypertension- Primary Unspecified essential hypertension Mixed hyperlipidemia Carotid artery stenosis, asymptomatic, bilateral [facility]No reason for referral information [facility]Log[facility]port [facility] Work Phone: Reason for visit Narrative* Imaging (Routine) - Pending Review Specialty Diagnoses / Procedures Referred By Brenda frost Referred To Contact Radiology Diagnoses Occlusion and stenosis of unspecified carotid artery Procedures CTA neck angio w and wo IV contrast CTA head neck angio w and wo IV contrast Mart Atkinson MD [address] [facility] [address] [place] [address] Phone: tel: fax: Referral ID Status Reason Start Date Expiration Date V isits Requested Visits Authorized [id number] Pending Review 08/25/2024 08/25/2025 1 1 [facility] Assessments Diagnosis Hypertension, unspecified type Carotid artery stenosis, symptomatic, bilateral Hypothyroidism, unspecified type Type 2 diabetes mellitus with hyperglycemia, without long-term current use of insulin (HCC) Diagnosis Hypothyroidism, unspecified type Diagnosis Essential hypertension Unspecified essential hypertension Type 2 diabetes mellitus with hyperglycemia, without long-term current use of insulin (HCC) Hypothyroidism, unspecified type Diagnosis Transaminitis Nonspecific elevation of levels of transaminase or lactic acid dehydrogenase (LDH) Hypothyroidism, unspecified type Advance Directives No Advanced Directives Records FoundDocuments on File Type Date Recorded Patient Automatic Steel Tie Adjuster Expl anation Advance Directives and Living Will Power of [employer] Dean Latest Code Status on File Code Status Date Activated Date Inactivated Comments Full Code 06/11/2017 5:39 PM 06/17/2017 4:24 PM Documents on File Type Date Recorded Patient Automatic Steel Tie Adjuster Expl anation ACP-Advance Directive ACP-Power of [employer] Dean Summary Purpose Family History No Family History Records Found Relationship Condition Age at Onset Recorded Date/T [place] mother Malignant neoplasm of breast Unknown father Alcohol abuse Unknown Reason for Referral Specialty Diagnoses / Procedures Referred By Brenda frost Referred To Contact Cardiology Diagnoses Carotid artery stenosis, symptomatic, bilateral Procedures Vascular US carotid artery duplex bilateral ZaRachel alas, DO [address] [place] [address] Referral ID Status Reason Start Date Expiration Date V isits Requested Visits Authorized [id number] Authorized 05/22/2023 05/21/2024 1 1 Referral ID Status Reason Start Date Expiration Date Visits Re quested Visits Authorized [id number] Closed 05/22/2023 05/21/2024 1 1 Chief Complaint and Reason for Visit Chief Complaint Admit Date Establish care August 06, 2024 10:4 0am Discuss CTA & Intervention September 20 025 10:16am E ORDER November 18, 2024 11:2 1am Discuss TSH levels November 18, 2024 11:3 9am Reason for Visit Admit Date Carotid artery stenosis August 06, 2024 10:40am Carotid artery stenosis September 20, 2024 10:16am Reason for Visit Admit Date Carotid artery stenosis August 06, 2024 10:40am Carotid artery stenosis September 20, 2024 10:16am Carotid artery stenosis November 18, 2024 11:39am Additional Source Comments (unrecognized sect ion and content) No Status Records FoundNo Status Records FoundNo Status Records FoundNo Status Records FoundNo Status Records FoundNo Status Records Found INFORMATION SOURCE (unrecogn ized section and content) DATE CREATED AUTHOR 06/08/2019 L[place]onancy Adorno [facility] DATE CREATED AUTHOR AUTHOR'S ORGANIZ ATION 01/21/2021 L[place]ancy Adorno [facility] DATE CREATED AUTHOR AUTHOR'S ORGANIZ ATION 01/24/2022 [facility] DATE CREATED AUTHOR AUTHOR'S ORGANIZ ATION 12/13/2024 [facility] DATE CREATED AUTHOR AUTHOR'S ORGANIZ ATION 12/24/2024 [facility] DATE CREATED AUTHOR AUTHOR'S ORGANIZ ATION 12/28/2024 [facility] Care Teams (unrecognized sec tion and content) Simulation Software Engineer Relationship Specialty Start Date End Date FlakitaRachel alas, DO [address] [place] [phone] PCP - General 12/29/17 Simulation Software Engineer Relationship Specialty Start Date End Date Rachel Rangel, DO [address] [place] [address] PCP - General 12/29/17 Simulation Software Engineer Relationship Specialty Start Date End Date Rachel Rangel DO [address] [facility] [facility] [address] [place] [address] PCP - General Internal Medicine 03/17/22 Simulation Software Engineer Relationship Specialty Start Date End Date Rachel Rangel DO [address] [place] [address] PCP - General Internal Medicine 03/17/22 Simulation Software Engineer Relationship Specialty Start Date End Date Rachel Rangel DO [address] [place] [address] PCP - General Internal Medicine 03/17/22 Simulation Software Engineer Relationship Specialty Start Date End Date Rachel Rangel DO [address] [place] [phone] PCP - General Internal Medicine 03/17/22 Simulation Software Engineer Relationship Specialty Start Date End Date Rachel Rangel DO [address] [facility] [place] [address] PCP - General Internal Medicine 03/17/22 Simulation Software Engineer Relationship Specialty Start Date End Date Rachel Rangel DO [address] [facility] [place] [address] PCP - General Internal Medicine 03/17/22 Simulation Software Engineer Relationship Specialty Start Date End Date Rachel Rangel DO [address] [place] [address] PCP - General Internal Medicine 03/17/22 Simulation Software Engineer Relationship Specialty Start Date End Date Rachel Rangel DO [address] [facility] [place] [address] PCP - General Internal Medicine 03/17/22 Simulation Software Engineer Relationship Specialty Start Date End Date Rachel Rangel DO [address] [facility] [place] [address] PCP - General Internal Medicine 03/17/22 Simulation Software Engineer Relationship Specialty Start Date End Date Rachel Rangel DO [address] [facility] [address] [place] [address] PCP - General Internal Medicine 03/17/22 Simulation Software Engineer Relationship Specialty Start Date End Date Rachel Rangel DO [address] [facility] [address] [place] [phone] PCP - General Internal Medicine 03/17/22 Simulation Software Engineer Relationship Specialty Start Date End Date Rachel Rangel DO [address] [facility] [address] [place] [address] PCP - General Internal Medicine 03/17/22 Simulation Software Engineer Relationship Specialty Start Date End Date Rachel Rangel DO [address] [facility] [address] [place] [address] PCP - General Internal Medicine 03/17/22 Simulation Software Engineer Relationship Specialty Start Date End Date Rachel Rangel DO [address] [facility] [address] [place] [address] PCP - General Internal Medicine 03/17/22 Simulation Software Engineer Relationship Specialty Start Date End Date Rachel Rangel DO [address] [facility] [address] [place] [address] PCP - General Internal Medicine 03/17/22 Simulation Software Engineer Relationship Specialty Start Date End Date Gerardo Rangelhanterrance Glover DO [address] [facility] [address] [place] [address] PCP - General Internal Medicine 03/17/22 Simulation Software Engineer Relationship Specialty Start Date End Date Gerardo Rangeleleuterio Glover DO [address] [facility] [address] [place] [address] PCP - General Internal Medicine 03/17/22 Team Status: Active Member Role Status Dates RACHEL RANGEL Primary Care Provider Active Team Status: Inactive Member Role Status Dates MAIKEL Gonzalez Attending Provider Active Star t: August 06, 2024 End: August 06, 2024 Claire Ramos Primary Care Provider Active St art: August 06, 2024 End: August 06, 2024 Claire Ramos Referring Provider Active Start : August 06, 2024 End: August 06, 2024 Team Status: Inactive Member Role Status Dates Dr. Mart Atkinson MD Attending Provider Active S tart: September 20, 2024 End: September 20, 2024 Team Status: Active Member Role Status Dates LCAIRE RAMOS Primary Care Provider Active St art: November 18, 2024 MAIKEL Gonzalez Attending Provider Active Star t: November 18, 2024 MAIKEL Gonzalez Referring Provider Active Star t: November 18, 2024 Team Status: Inactive Member Role Status Dates MAIKEL Gonzalez Attending Provider Active Star t: November 18, 2024 End: November 18, 2024 CLAIRE RAMOS Primary Care Provider Active St art: November 18, 2024 End: November 18, 2024 CLAIRE RAMOS Referring Provider Active Start : November 18, 2024 End: November 18, 2024 Simulation Software Engineer Relationship Specialty Start Date End Date Claire Rachel GloverDO [address] [facility] [address] [place] [address] PCP - General Internal Medicine 03/17/22 Simulation Software Engineer Relationship Specialty Start Date End Date Rachel Rangel DO [address] [facility] [address] [place] [address] PCP - General Internal Medicine 03/17/22 Team Status: Inactive Member Role Status Dates CLAIRE RAMOS Primary Care Provider Active St art: November 18, 2024 End: November 18, 2024 MAIKEL Gonzalez Attending Provider Active Star t: November 18, 2024 End: November 18, 2024 MAIKEL Gonzalez Referring Provider Active Star t: November 18, 2024 End: November 18, 2024 Simulation Software Engineer Relationship Specialty Start Date End Date Rachel Rangel DO [address] [facility] [address] [place] [phone] PCP - General Internal Medicine 06/02/19 Simulation Software Engineer Relationship Specialty Start Date End Date Rachel Rangel DO [address] [facility] [address] [place] [phone] PCP - General Internal Medicine 03/17/22 Reason for Visit (unrecogniz ed section and content) Reason Onset Date Comments Medication Adherence 04/30/2023 Reason Comments Med Refill Reason Comments Diabetes Hypertension Yearly visit Specialty Diagnoses / Procedures Referred By Brenda frost Referred To Contact Cardiology Diagnoses Carotid artery stenosis, symptomatic, bilateral Procedures Vascular US carotid artery duplex bilateral Rachel Rangel DO [address] [facility] [address] [place] [address] Referral ID Status Reason Start Date Expiration Date Visits Re quested Visits Authorized [id number] Closed 05/22/2023 05/21/2024 1 1 Reason Onset Date Comments Med Refill 12/09/2023 Reason Onset Date Comments Med Refill 08/08/2022 Reason Comments Diabetes REGULAR VISIT Reason Comments New Patient (ref Dr. Rachel Araya ) ETL TESTER eval for left carotid stenosis; [facility] 11/18/23, s/p right CEA 2017 - Dr. Atkinson Reason Onset Date Comments Care Coordination 10/19/2024 Vascular proce dure cancelled due to abnormal blood work. Reason Comments Hypothyroidism Reason Comments Insect Bite Tick bite on right t high noticed 1 hour ago after working in yard Reason Comments Follow-up Pre-op Exam Goals (unrecognized section and content) Goals may be documented in a n alternate sectionGoals may be documented in an alternate section Source Comments (unrecognize d section and content) In the event this informatio n is protected by the Federal Confidentiality of Alcohol and Drug Abuse Patient Records regulations: The Federal rules restrict any use of the information to criminally investigate or prosecute any alcohol or drug abuse patient.[facility] FOR RECORDS PERTAINING TO PATIENTS WHO ARE OR HAVE BEEN ENROLLED IN A CHEMICAL DEPENDENCY/SUBSTANCEABUSE PROGRAM, SOME INFORMATION MAY BE OMITTED. This clinical summary was aggregated from multiple sources. Caution should be exercised in using it in the provision of clinical care. This summary normalizes information from multiple sources, and as a consequence, information in this document may materially change the coding, format and clinical context of patient data. In addition, data may be omitted in some cases. CLINICAL DECISIONS SHOULD BE BASED ON THE PRIMARY CLINICAL RECORDS. [employer] provides no warranty or guarantee of the accuracy or completeness of information in this document.
[2024-12-28] MEDS: Vancomycin HCl 1,750 MG in 0.9% Normal Saline (500mL Bag) 500 ML 250 MG IV (06:33)
[2024-12-28] MEDS: Lactated Ringers 1,000 ML 15 ML IV ×2 (06:33→09:20)
--- NOTE | 2024-12-28 06:43 | PRE.ANES_ITS ---
ASA Classification* ASA Classification ASA Classification: 3 Assessment & Plan Anesthesia* Anesthesia Assessment Anesthesia Assessment: Discussed sedation and/or anesthesia options, risks, benefits, and alternatives with patient/parents/legal guardian/POA. Questions invited. The patient/parents/legal guardian/POA seems to understand and agrees to proceed with anesthesia plan. Reviewed the physical assessment, medical history, allergy history and patient home medications list prior to surgery/procedure/anesthetic and documented any changes. Performed airway and anesthesia risk assessments. Anesthesia Type Anesthesia Type: General History Source History Obtained from:: Patient and Chart Anesthesia Focused Assessment* Temperature: 97.5 F Pulse Rate: 56 Blood Pressure: 148/70 Respiratory Rate: 18 Pulse Ox: 98 Oxygen Delivery Method: Room Air Airway Assessment Mouth opens: >3 cm Mallampati Score: I Teeth Condition: Missing (Patient is missing several teeth. All else is tight.) Neck Range of motion (ROM): Limited ROM (Slight Decrease) Labs Anesthesia Preop lab: CBC WBC 5.6 K/mm3 (4.4-11.0) 12/21/24 10:36 12/21/24 RBC 5.27 M/mm3 (4.6-6.2) 12/21/24 10:36 12/21/24 Hgb 17.2 g/dL (13.0-16.5) H 12/21/24 10:36 5 Hct 50.4 % (40-54) 12/21/24 10:36 12/21/24 Plt Count 200 K/mm3 (150-450) 12/21/24 10:36 12/21/24 CHEMISTRY Potassium 4.3 mmol/L (3.3-5.1) 12/21/24 10:36 12/21/24 Sodium 141 mmol/L (133-145) 12/21/24 10:36 12/21/24 BUN 11 mg/dL (4-19) 12/21/24 10:36 12/21/24 Creatinine 0.83 mg/dL (0.70-1.20) 12/21/24 10:36 12/21/24 Glucose 95 mg/dL (70-99) 12/21/24 10:36 12/21/24 TSH 3.040 uIU/mL (0.300-4.200) 12/21/24 10:36 12/01 07/27 COAG Pre-Assessment Diagnosis/Proposed Procedure Planned Operative Procedure(s): Left carotid stent. 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 When Was Last Pacemaker Check QUESTION #4 FULL TEXT: You/Your Family Experience fever (hyperthermia) with Anesthesia Last Oral Intake Last Oral intake: Last Oral Intake NPO since 18:00 12/28/24 06:01 Meds taken in AM with sips of Yes 12/28/24 06:01 water? 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 - real estate attorney: PONV - real estate attorney Female No 12/14/24 14:00 HX of Motion Sickness No 12/14/24 14:00 HX of N/V After Surgery No 12/14/24 14:00 Non-Smoker Yes 12/14/24 14:00 Duration of Surgery greater No 12/14/24 14:00 than 60 minutes Number of Risk Factors 1 12/14/24 14:00 PONV Score Low Risk 12/14/24 14:00 Height & Weight Height & Weight: Anesthesia: Height & Weight Height 5 ft 10 in 12/28/24 06:01 Weight: 113 kg 12/28/24 06:01 Body Mass Index (BMI) 35.7 12/28/24 06:01 Respiratory Assessment Respiratory Assessment - real estate attorney: Respiratory Tract Infection Hx - real estate attorney Hx Respiratory Tract Infection No 12/14/24 14:00 STOP Sleep Apnea STOP Sleep Apnea - real estate attorney: STOP Sleep Apnea - real estate attorney Hx Hypertension Yes 12/14/24 14:00 Hx Sleep Apnea No 12/14/24 14:00 CPAP BIPAP Do you snore loudly (louder No 12/14/24 14:00 than talking or can be heard Do you often feel tired/ No 12/14/24 14:00 fatigued/ sleepy during daytime? Has anyone observed you stop No 12/14/24 14:00 breathing during sleep? STOP Results Negative 12/14/24 14:00 QUESTION #5 FULL TEXT : Do you snore loudly (louder than talking or can be heard through closed doors)? 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 Specify any problems Hx of Preganancy in last 3 N/A 12/14/24 14:00 Months Nurse Filling Out Transfusion [email or web address] 12/14/24 14:00 & Questions: Date: 12/14/24 12/14/24 14:00 Time: 14:00 12/14/24 14:00 Patient unable to answer at this time (ie. confused, unrespo /Reproduction History /Reproductive History - real estate attorney: /Reproductive Hx- real estate attorney Hx Now Gestational Age (in weeks): EDC: Hx Hx Para Hx Section SAB Active Medications Active Medications: Current Medications Generic Name Dose Route Start Last Admin Trade Name Freq PRN Reason Stop Dose Admin Vancomycin HCl 1,750 mg/ 535 mls @ 250 mls/hr 12/28/24 07:00 12/28/24 06:33 Sodium Chloride IV 12/28/24 09:08 250 mls/hr X1 ONE Administration Lactated Ringer's 1,000 mls @ 15 mls/hr 12/28/24 05:45 12/28/24 06:33 IV 15 mls/hr .Q48H PEDRO Administration PFSH Medical History (Updated 12/14/24 @ 14:05 by Patrick Magaña) Cardiology follow-up encounter Wears glasses Alcohol use Thyroid disease Restless legs syndrome (RLS) Stroke/cerebrovascular accident Former smoker Carotid artery stenosis Acute right arterial ischemic stroke, middle cerebral artery (MCA) Hypertension Hypothyroid Hyperlipidemia Diabetes mellitus Home Medications ?Medication ?Instructions ?Recorded ?Last Taken ?Type aspirin 81 mg tablet,delayed 81 mg PO QDAY blood clott ing 08/05/24 12/27/24 History release (Adult Aspirin Regimen) atorvastatin 80 mg tablet 80 mg PO QDAY cholesterol 12/27/24 History clopidogrel 75 mg tablet 75 mg PO QDAY blood thinner 08/05/24 12/28/24 History hydrochlorothiazide 25 mg tablet 25 mg PO QDAY blood p ressure 08/05/24 12/27/24 History levothyroxine 75 mcg capsule 225 mcg PO QDAY hypothyro id 08/05/24 12/28/24 History metformin 1,000 mg tablet 1,000 mg PO BIDWMEAL diabete s 08/05/24 12/27/24 History Allergy/AdvReac Type Severity Reaction Status Date / Time duloxetine Allergy Nausea Verified 12/28/24 05:58 Penicillins Allergy Rash Verified 12/28/24 05:58 Family History Mother Breast cancer Father Alcohol abuse Surgical History H/O carotid endarterectomy (~06/16/17) History of cholecystectomy (~1992) Social History Smoking Status: Former smoker how long ago did patient quit smokin years Review of Systems (Anesthesia) ROS Narrative System reviewed and no additional complaints, except as documented.
--- NOTE | 2024-12-28 07:26 | HP.PCM_ITS ---
HPI - General General Date of Admission: 12/28/24 HPI Narrative MAXIM VELASQUEZ, is a 64 M who presents with asymptomatic left ICA stenosis. He has history of prior right CEA several years ago. CT revealed lesion amenable to stent and high bifurcation. He is scheduled for planned left TCAR. [facility] Medical History Cardiology follow-up encounter Wears glasses Alcohol use Thyroid disease Restless legs syndrome (RLS) Stroke/cerebrovascular accident Former smoker Carotid artery stenosis Acute right arterial ischemic stroke, middle cerebral artery (MCA) Hypertension Hypothyroid Hyperlipidemia Diabetes mellitus Home Medications ?Medication ?Instructions ?Recorded ?Last Taken ?Type aspirin 81 mg tablet,delayed 81 mg PO QDAY blood clott ing 08/05/24 12/27/24 History release (Adult Aspirin Regimen) atorvastatin 80 mg tablet 80 mg PO QDAY cholesterol 12/27/24 History clopidogrel 75 mg tablet 75 mg PO QDAY blood thinner 08/05/24 12/28/24 History hydrochlorothiazide 25 mg tablet 25 mg PO QDAY blood p ressure 08/05/24 12/27/24 History levothyroxine 75 mcg capsule 225 mcg PO QDAY hypothyro id 08/05/24 12/28/24 History metformin 1,000 mg tablet 1,000 mg PO BIDWMEAL diabete s 08/05/24 12/27/24 History Allergy/AdvReac Type Severity Reaction Status Date / Time duloxetine Allergy Nausea Verified 12/28/24 05:58 Penicillins Allergy Rash Verified 12/28/24 05:58 Family History Mother Breast cancer Father Alcohol abuse Surgical History H/O carotid endarterectomy (~06/16/17) History of cholecystectomy (~1992) Social History Smoking Status: Former smoker how long ago did patient quit smokin years ROS Constitutional Constitutional: Denies chills, fever(s), frequent falls, lethargy or weakness Eyes Eyes: Denies blind spots, change in vision or loss of vision ENT HEENT: Denies bleeding gums, hoarseness or sore throat Cardiovascular Cardiovascular: Denies abdominal pain, bluish discoloration of hand/feet, chest pain with activity, claudication, cold extremities, cyanosis, dyspnea on exertion, erythema on extremities, irregular heart rhythm, leg edema, leg ulcers, numbness in extremities or weakness in extremities Respiratory/Chest Respiratory/Chest: Denies cough, excessive phlegm production, shortness of breath at rest, shortness of breath with exertion or wheezing Gastrointestinal Gastrointestinal: Denies anorexia, change in stool character, constipation, diarrhea, melena or rectal bleeding Genitourinary Genitourinary: Denies dysuria or hematuria Musculoskeletal Musculoskeletal: Denies abnormal gait Integumentary Integumentary: Reports other Details: ; Denies erythema, non-healing lesions or wounds Neurologic Neurologic: Denies abnormal speech, focal weakness, headache(s), loss of vision, numbness, paresthesias or sensory deficit Hematologic/Lymphatic Hematologic/Lymphatic: Denies easy bleeding, easy bruising or lymphadenopathy Vital Signs Vital Signs Vital Signs: 12/28/24 06:01 12/28/24 06:01 12/28/24 06:55 Temperature 97.5 F L 97.5 F L Temperature Source Temporal Pulse Rate 56 L 56 L Respiratory Rate 18 18 Respiratory Pattern Normal Blood Pressure 148/70 H 148/70 H Blood Pressure Mean 96 Blood Pressure Source Monitor Blood Pressure Position Semi-Fowlers Blood Pressure Location Left Arm Pulse Ox 98 98 Oxygen Delivery Method Room Air Room Air Weight Weight: 249 lb 1.957 oz Body Mass Index (BMI) 35.7 Physical Exam Const alert, oriented x3, no apparent distress and healthy appearing General Appearance: cooperative; Negative for combative or lethargic Orientation / Consciousness: awake Exam Limitations: no limitations HEENT Head and Scalp: normocephalic and atraumatic Eyes EOMs intact bilaterally General Eye: normal appearance of both eyes Neck full ROM and no lymphadenopathy General: trachea midline; Negative for tenderness Resp normal respiratory effort and no use of accessory muscles Effort and Inspection: Negative for labored, stridor or audible wheezes Cardio regular rate and regular rhythm Back/Spine Cervical Spine: cervical ROM normal Extremity full ROM, normal capillary refill and no clubbing, cyanosis or edema Skin no rashes or lesions noted and no wounds Neuro oriented x3, CN's II-XII intact bilaterally, no focal motor deficits and no sensory deficits noted Psych thought process normal, cooperative, affect normal, speech normal and activity/motor behavior normal Results Lab / Micro Data 12/21/24 10:36 12/21/24 10:36 Assessment & Plan Assessment/Plan (1) Carotid artery stenosis: QUALIFIERS: Laterality: left Qualified Code(s): I65.22 - Occlusion and stenosis of left carotid artery PLAN: -left TCAR
[2024-12-28 10:01] LABS: ACT Activated Clotting Time 268 sec (74-137)
[2024-12-28 10:01] LABS: ACT Activated Clotting Time 326 sec (74-137)
--- NOTE | 2024-12-28 10:19 | OP.PCM_ITS ---
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: Yes [employer] Account Assistant: Ashleigh Denny Tasks completed by administrative assistant coordinator: Opening, Closing, Opening & closing and Retracting Type of Anesthesia: General RN Documented Start/Stop Times: Operation Date: 12/28/24 07:15 Case Time Into Pre-Op 12/28/24 05:41 Out of Pre-Op 12/28/24 07:03 Into Recovery 12/28/24 10:40 Out of Recovery 12/28/24 11:38 Procedure Start Time: 08:40 Procedure Stop Time: 10:30 Select all DRAINS/GRAFTS/IMPLANTS that apply: Implanted device Implanted device details: En Route [id number] Estimated Blood Loss: 8 Specimen collected: No Description of surgery: HPI: Patient is a 64-year-old male with high-grade asymptomatic left carotid artery stenosis. He has a very high bifurcation and distal plaque so he is felt to be most appropriate for carotid stenting. He is taken now for elective carotid artery stenting via transcarotid approach. Description of procedure: Upon obtaining informed consent and verification correct patient procedure and site the patient was taken to the Surgical Instrument Repair Specialist was placed under general anesthesia. He was then positioned prepped and draped in usual sterile fashion time was performed. Transverse incision made 1 fingerbreadth superior to the clavicle centered over the common carotid artery. Bovie was used to dissect through subcutaneous tissue down to level the platysma which was divided and self-retaining retractors put in position. Further dissection was carried down to the sternocleidomastoid and carried into the groove between the sternal and clavicular heads exposing the carotid sheath. Self-retaining retractors removed deeper into the wound and further dissection of the carotid sheath was performed exposing the jugular vein which was dissected free and retracted laterally revealing the common carotid artery. Sharp dissection was used to dissect free the proximal common carotid artery with care taken to identify and protect the adjacent nerves. A writing was used to place a vessel approximately and a 5-0 Prolene pursestring suture was placed at the intended access site. The patient was in heparinized allowed to circulate for 3 minutes after which subsequent heparin dosing was performed based on ACT results. Under ultrasound guidance the right common femoral vein was accessed with a micropuncture needle wire and exchanged for micropuncture sheath. Through the micropuncture sheath a J-wire was advanced and the micropuncture sheath exchanged for the 8 [place] venous return sheath. Next using the micropuncture needle and wire we accessed the common carotid artery in antegrade fashion and then exchanged for the micropuncture sheath. Through the micropuncture sheath hand-injection subtraction angiography of the carotid was performed revealing satisfactory position within the true lumen and revealed the location of the carotid bifurcation. The micropuncture wire and dilator then readvanced through the sheath and engaged in the external carotid artery. The sheath was then advanced and again the wire and dilator withdrawn after which the J-wire was advanced into the external carotid artery. The micropuncture sheath was then exchanged for the 8 [place] flow reversal sheath which was advanced without difficulty. The flow reversal tubing was then attached both to the carotid sheath into the femoral venous sheath and adequate flow reversal confirmed. Next the proximal common carotid artery was occluded with Vesseloops and flow reversal again confirmed. Multiple oblique view subtraction angiography was performed of the carotid vessels until satisfactory visualization of the internal carotid artery and its lesion were obtained. Next the [address] wire was advanced and successfully navigated into the internal carotid artery and traversing the lesion into the distal internal carotid artery. A 5.5 x [address] [place] was then advanced over the wire and centered on the lesion. This was inflated to nominal for 30 seconds then deflated withdrawn. An en route tapered 10 to 8 x 40 stent was then advanced in the position and deployed with satisfactory stent expansion. 2 minutes of flow reversal was performed after which some repeat subtraction angiography images were obtained which revealed satisfactory resolution of the area of stenosis with no extravasation or dissection and no evidence of plaque prolapse. There was good wall apposition of the stent and brisk contrast transit. The carotid was then unclamped and an additional 1 minute of flow reversal performed after which the tubing was detached and blood returned into the femoral venous sheath. The femoral sheath was then withdrawn a minute pressure held for 5 minutes till hemostasis was observed. The pursestring in the common carotid artery was secured as the sheath was withdrawn and the vessel interrogated with Doppler and found to be patent with appropriate signal. The incision was inspected for hemostasis and there was some significant ooze from multiple surfaces of the musculature and adipose tissue which were controlled with combination of Bovie and topical hemoblast after which satisfactory stasis was observed. A 19 [place] channel ORI was placed via separate stab incision and incision was closed with 3-0 Vicryl followed by 4 Monocryl and Dermabond for the skin. At the conclusion of the case the patient was awakened anesthesia moving all extremities to command with cranial nerves intact. He was taken to the recovery room with anticipate admission to intensive care unit for hemodynamic and neurologic monitoring. Surgical Findings: see above Complications Complications: No
--- NOTE | 2024-12-28 10:56 | PCM.POST.ANE ---
Anesthesia: Postop Eval I Current Vital Signs Temperature: 97.3 F Pulse Rate: 59 Blood Pressure: 131/57 Respiratory Rate: 16 Pulse Ox: 94 Oxygen Delivery Method: Nasal Cannula Oxygen Flow Rate (L/min): 2 Assessment Airway patent: Yes Spontaneous unlabored respirations: Yes Mental status: Awake and Calm nausea: No Vomiting: No Anesthesia Complication: No Fluid Hydration Crystalloid volume administer (ml): 1,500 Total IV fluid infused: 1,500 Progress Note Anesthesia document: Postop Eval 1 completed: Yes
--- NOTE | 2024-12-28 13:35 | POSTOPAN2_ITS ---
Anesthesia Postop Eval I Sum Postop Eval Completion status Anesthesia document: Postop Eval 1 completed: Yes Anesthesia Postop Eval I Summary Anesthesia Postop Eval I Summary: Anesthesia Postop Eval I: Assessment Summary Airway patent Yes 12/28/24 10:56 MANAGER [email or web address] Spontaneous unlabored Yes 12/28/24 10:56 MANAGER [email or web address] respirations Mental status Awake,Calm 12/28/24 10:56 MANAGER [email or web address] nausea No 12/28/24 10:56 MANAGER [email or web address] Vomiting No 12/28/24 10:56 MANAGER [email or web address].SHOF Anesthesia Postop Eval I: Fluid Summary Crystalloid volume administer 1,500 12/28/24 10:56 MANAGER [email or web address].SHOF (ml) Colloids volume administered ( ml) Blood Product volume administered (ml) Total IV fluid infused 1,500 12/28/24 10:56 MANAGER [email or web address] Anesthesia Postop Eval I: Summary Notes Anesthesia Complication No 12/28/24 10:56 MANAGER [email or web address].SHOF Anesthesia Complication Comment: Post-operative progress note Anesthesia: Postop Eval II Evaluation Mental status: Awake and Calm Pain Level: 0 nausea: No Vomiting: No Complications Anesthesia Complication: No
--- NOTE | 2024-12-28 13:35 | PCM.POSTANE2 ---
Anesthesia Postop Eval I Sum Postop Eval Completion status Anesthesia document: Postop Eval 1 completed: Yes Anesthesia Postop Eval I Summary Anesthesia Postop Eval I Summary: Anesthesia Postop Eval I: Assessment Summary Airway patent Yes 12/28/24 10:56 RESEARCH GREENHOUSE [email or web address] Spontaneous unlabored Yes 12/28/24 10:56 RESEARCH GREENHOUSE [email or web address] respirations Mental status Awake,Calm 12/28/24 10:56 RESEARCH GREENHOUSE [email or web address] nausea No 12/28/24 10:56 RESEARCH GREENHOUSE SUPERVISOR.SHOF Vomiting No 12/28/24 10:56 RESEARCH GREENHOUSE SUPERVISOR.SHOF Anesthesia Postop Eval I: Fluid Summary Crystalloid volume administer 1,500 12/28/24 10:56 RESEARCH GREENHOUSE SUPERVISOR.SHOF (ml) Colloids volume administered ( ml) Blood Product volume administered (ml) Total IV fluid infused 1,500 12/28/24 10:56 RESEARCH GREENHOUSE SUPERVISOR.SHOF Anesthesia Postop Eval I: Summary Notes Anesthesia Complication No 12/28/24 10:56 RESEARCH GREENHOUSE SUPERVISOR.SHOF Anesthesia Complication Comment: Post-operative progress note Anesthesia: Postop Eval II Evaluation Mental status: Awake and Calm Pain Level: 0 nausea: No Vomiting: No Complications Anesthesia Complication: No
[2024-12-28] MEDS: BENZOCAINE/MENTHOL 1 LOZENGE MUCOUS MEM (21:30)
[2024-12-29] VITALS (11 sets, daily range): BP systolic 106–132; BP diastolic 42–64; PULSE 44–69; RESP 13–17; TEMP 36.4–36.7; O2SAT 50–100; BMI 35.3
[2024-12-29] MEDS: BENZOCAINE/MENTHOL 1 LOZENGE MUCOUS MEM (03:04)
[2024-12-29 03:09] LABS: Hematocrit 43.7 % (40-54); Hemoglobin 15.2 g/dL (13.0-16.5); Immature Granulocytes Count 0.020 X10^3/uL (0.0-0.0); Mean Corp Hgb Conc 34.8 g/dL (32-36); Mean Corpuscular Volume 93.2 fL (80-94); Mean Platelet Vol. 10.4 fl (6.2-12.0); NRBC Flagged by Analyzer 0 % (0-5); Platelet Count 179 K/mm3 (150-450); RBC Distribution Width CV 12.8 % (11.6-14.6); RBC Distribution Width SD 43.6 fl (35.1-43.9); Red Blood Count 4.69 M/mm3 (4.6-6.2); White Blood Count 8.8 K/mm3 (4.4-11.0)
[2024-12-29] MEDS: Aspirin E.C. 81 MG Tablet PO (08:22)
--- NOTE | 2024-12-29 08:50 | PCM.PN.SRG ---
Subjective Subjective I saw Mr. Espino resting comfortably in the bedside chair this morning. He relates that he had a sore throat last night, but this is improving. He has mild discomfort at the incision site. Otherwise, he has no complaints. He denies any headache, vision changes, new weakness/numbness, lightheadedness. His blood pressures have been stable, heart rate bradycardic at times but he is asymptomatic with this. He has been voiding without difficulty and tolerating a normal diet. Objective Data Objective Data Vital Signs: Vital Signs Temp Pulse Resp BP Pulse Ox O2 Del Method O2 Flow Rate 97.9 F 69 15 132/56 H 99 Room Air 2 12/29/24 04:00 12/29/24 08:00 12/29/24 08:00 12/29/24 08:00 12/29/24 08:00 12/29/24 08:00 12/28/24 11:17 Oxygen Flow Rate (L/min) 2 Oxygen Delivery Method Room Air Weight: 246 lb 11.156 oz Body Mass Index (BMI) 35.3 Intake & Output: Intake and Output for Last 24 Hours 12/27/24 12/28/24 12/29/24 23:59 23:59 23:59 Intake Total 1586.5 / 1586.5 Output Total 576 / 1076 500 / 500 Balance 1010.5 / 510.5 -500 / -500 Lab / Micro Data 12/29/24 02:55 12/21/24 10:36 Labs: Laboratory Results - last 24 hr 12/28/24 05:58: POC Glucose 101 12/28/24 08:08: Activated Clotting Time 326 H 12/28/24 08:44: Activated Clotting Time 268 H 12/28/24 12:50: POC Glucose 122 H 12/28/24 16:11: POC Glucose 178 H 12/28/24 21:25: POC Glucose 170 H 12/29/24 02:55: WBC 8.8, RBC 4.69, Hgb 15.2, Hct 43.7, MCV 93.2, MCH 32.4 H, MCHC 34.8, RDW Std Deviation 43.6, RDW Coeff of Nathaniel 12.8, Plt Count 179, MPV 10.4, Immature Gran % (Auto) 0.200, Neut % (Auto) 75.8 H, Lymph % (Auto) 15.7 L, [place] % (Auto) 7.6, Eos % (Auto) 0.5, Baso % (Auto) 0.2, Absolute Neuts (auto) 6.7, Absolute Lymphs (auto) 1.38, Nucleated RBC % 0 Physical Exam Const alert, oriented x3 and no apparent distress General Appearance: cooperative and comfortable HEENT normocephalic, head/scalp atraumatic, hearing grossly normal bilaterally, external ears normal and external nose normal Eyes EOMs intact bilaterally General Eye: normal appearance of both eyes Neck Neck Narrative: L neck incision site with skin glue intact, ORI drain with serosanguineous output; no significant swelling/ecchymosis, site is soft to palpation Resp normal respiratory effort, normal air movement, no retractions and no use of accessory muscles Effort and Inspection: able to speak in complete sentences; Negative for labored, grunting or stridor Cardio regular rate and regular rhythm Extremity Extremity Narrative: R groin access site with dry dressing C/D/I, no significant swelling/ecchymosis, area is soft to palpation Neuro oriented x3, CN's II-XII intact bilaterally, moves all extremities and no focal motor deficits Speech: speech normal Psych mental status grossly normal Appearance: grossly normal Attitude: calm and engaged Activity / Motor Behavior: appropriate eye contact Speech: normal speech Mood & Affect: euthymic mood Assessment & Plan Assessment/Plan (1) Carotid artery stenosis: QUALIFIERS: Laterality: left Qualified Code(s): I65.22 - Occlusion and stenosis of left carotid artery PLAN: Plan He is POD#1 from L TCAR. I removed the ORI drain this morning without issue, he tolerated this well. L neck incision site and R groin puncture site both satisfactory in appearance without hematoma. He is voiding to baseline, tolerating a normal diet, pain is well controlled, and he has been neurologically and hemodynamically stable. Plan to ambulate with nursing/PT today, if he ambulates well then anticipate discharge to home later today. Charges/Coding Procedures Integumentary 111xxx-113xx: [id number] Global Visit
--- NOTE | 2024-12-29 09:09 | PCM.DC.SUM ---
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 I removed the ORI drain this morning without issue, he tolerated this well. L neck incision site and R groin puncture site both satisfactory in appearance without hematoma. He is voiding to baseline, tolerating a normal diet, pain is well controlled, and he has been neurologically and hemodynamically stable. Plan to ambulate with nursing/PT today, if he ambulates well then anticipate discharge to home later today. Medications at Discharge Home Medications aspirin 81 mg tablet,delayed release (Adult Aspirin Regimen) 81 mg PO QDAY blood clotting 08/05/24 atorvastatin 80 mg tablet 80 mg PO QDAY cholesterol 08/05/24 clopidogrel 75 mg tablet 75 mg PO QDAY blood thinner 08/05/24 hydrochlorothiazide 25 mg tablet 25 mg PO QDAY blood pressure 08/05/24 levothyroxine 75 mcg capsule 225 mcg PO QDAY hypothyroid 08/05/24 metformin 1,000 mg tablet 1,000 mg PO BIDWMEAL diabetes 08/05/24 Held on 12/29/24. Instructions: Resume on 12/31/24. amlodipine 5 mg tablet 5 mg PO DAILY blood pressure 12/28/24 acetaminophen 500 mg tablet 1,000 mg (2 x 500 mg) PO Q8 #0 tabs 12/29/24 oxycodone 5 mg tablet 5 mg PO Q8H PRN PRN Pain Score 4-10 3 days #9 tabs 12/29/24 Hospital Course Operations - (L TCAR) Summary of Care Provided Hospital Course: Mr. Luis Espino is a 64 y/o male who underwent L TCAR 12/28/2024. The procedure was without complication and he tolerated it well. Postoperatively, he was routinely admitted to the ICU for ongoing hemodynamic and neurologic monitoring. He has remained neurologically intact and stable throughout his admission. He has been bradycardic at times but asymptomatic and otherwise hemodynamically stable. He has tolerated a normal diet, voided to his baseline, ambulated well and to his baseline, and his pain is wel controlled. ORI drain was removed POD#1 without issue. He is stable for discharge home with scheduled outpatient follow-up in the office. Physical Exam Const alert, oriented x3 and no apparent distress General Appearance: cooperative and comfortable HEENT normocephalic, head/scalp atraumatic, hearing grossly normal bilaterally, external ears normal and external nose normal Eyes EOMs intact bilaterally General Eye: normal appearance of both eyes Neck Neck Narrative: L neck incision site with skin glue intact, ORI drain with serosanguineous output; no significant swelling/ecchymosis, site is soft to palpation Resp normal respiratory effort, normal air movement, no retractions and no use of accessory muscles Effort and Inspection: able to speak in complete sentences; Negative for labored, grunting or stridor Cardio regular rate and regular rhythm Extremity Extremity Narrative: R groin access site with dry dressing C/D/I, no significant swelling/ecchymosis, area is soft to palpation Neuro oriented x3, CN's II-XII intact bilaterally, moves all extremities and no focal motor deficits Speech: speech normal Psych mental status grossly normal Appearance: grossly normal Attitude: calm and engaged Activity / Motor Behavior: appropriate eye contact Speech: normal speech Mood & Affect: euthymic mood Weight / BMI Weight Weight: 246 lb 11.156 oz Body Mass Index (BMI) 35.3 ABG / Lab / Microbiology Data 12/29/24 02:55 12/21/24 10:36 Laboratory: Laboratory Results - last 24 hr 12/28/24 05:58: POC Glucose 101 12/28/24 08:08: Activated Clotting Time 326 H 12/28/24 08:44: Activated Clotting Time 268 H 12/28/24 12:50: POC Glucose 122 H 12/28/24 16:11: POC Glucose 178 H 12/28/24 21:25: POC Glucose 170 H 12/29/24 02:55: WBC 8.8, RBC 4.69, Hgb 15.2, Hct 43.7, MCV 93.2, MCH 32.4 H, MCHC 34.8, RDW Std Deviation 43.6, RDW Coeff of Nathaniel 12.8, Plt Count 179, MPV 10.4, Immature Gran % (Auto) 0.200, Neut % (Auto) 75.8 H, Lymph % (Auto) 15.7 L, [place] % (Auto) 7.6, Eos % (Auto) 0.5, Baso % (Auto) 0.2, Absolute Neuts (auto) 6.7, Absolute Lymphs (auto) 1.38, Nucleated RBC % 0 D/C Instructions May shower in (days): 1 Weight Bearing Status: Weight bearing as tolerated Lifting Restricted to (Lbs): 20 Lifting Restrictions: Do not lift greater than 20 pounds for 3 weeks Call your doctor if your incision/area has: Continuous Slow Oozing, Sudden Increased Bleeding, Increased Pain/ Swelling and Foul Smelling Discharge Call your doctor if you observe: Fever of 101 or Higher and Uncontrolled pain Remove Dressing in: 1 day DC O2, CPAP, BIPAP Needs Home O2 Discharge instructions: No Additional Instructions: INCISION CARE: You have a small bandage on your neck over the site from which the surgical drain was removed and over the R groin puncture site. You may remove both bandages tomorrow. As long as there is no residual drainage, you may leave these sites open to air. If you do notice some continued drainage, you may re-cover with a Band-Aid. Your neck incision site is covered with skin glue which will continue to protect it. The skin glue will peel/flake off on its own over the next few weeks. Please do not pick at it. You may shower tomorrow. It is okay for soap and water to rinse over the incision site, pat to dry. Do not submerge the incision site in water such as to take a bath or go swimming etc. for 3 weeks. MEDICATION INSTRUCTIONS Continue to take Aspirin 81mg daily and Plavix (clopidogrel) 75mg daily. You have been prescribed oxycodone 5mg tablet to be taken by mouth every 8 hours as needed for pain. You may take this in addition to Tylenol as needed. You should not drive or operate machinery while taking this medication. Do not take this medication in combination with any other prescription pain medications. Call the office at [phone] with any questions about your medications ACTIVITY INSTRUCTIONS Do not lift greater than 20 pounds for 3 weeks. Otherwise, please continue with activity as tolerated. Do not drive until you can turn your head well enough to safely check your blind spots. FOLLOW-UP INSTRUCTIONS You are scheduled for follow-up in the office on 01/12/2025. If you need to change this appointment or have any other questions/concerns, please call the office at [phone]. Please Follow Up With: Zuly Ruggiero PA When: 01/12/25 Meaningful Use Info Meaningful Use Meaningful Use Diagnoses (Choose all that apply): None applicable Discharge Plan Admission Admit Date/Time: 12/28/24 10:11 Attending Provider: Roshan Burks Primary Care Provider: AMALIA RANGEL Instructions Additional Instructions / Restrictions: INCISION CARE: You have a small bandage on your neck over the site from which the surgical drain was removed and over the R groin puncture site. You may remove both bandages tomorrow. As long as there is no residual drainage, you may leave these sites open to air. If you do notice some continued drainage, you may re-cover with a Band-Aid. Your neck incision site is covered with skin glue which will continue to protect it. The skin glue will peel/flake off on its own over the next few weeks. Please do not pick at it. You may shower tomorrow. It is okay for soap and water to rinse over the incision site, pat to dry. Do not submerge the incision site in water such as to take a bath or go swimming etc. for 3 weeks. MEDICATION INSTRUCTIONS Continue to take Aspirin 81mg daily and Plavix (clopidogrel) 75mg daily. You have been prescribed oxycodone 5mg tablet to be taken by mouth every 8 hours as needed for pain. You may take this in addition to Tylenol as needed. You should not drive or operate machinery while taking this medication. Do not take this medication in combination with any other prescription pain medications. Call the office at [phone] with any questions about your medications ACTIVITY INSTRUCTIONS Do not lift greater than 20 pounds for 3 weeks. Otherwise, please continue with activity as tolerated. Do not drive until you can turn your head well enough to safely check your blind spots. FOLLOW-UP INSTRUCTIONS You are scheduled for follow-up in the office on 01/12/2025. If you need to change this appointment or have any other questions/concerns, please call the office at [phone]. Discharge Orders/Prescriptions Prescriptions: New acetaminophen 500 mg Tablet 1,000 mg PO Q8 Qty: 0 0RF oxycodone 5 mg Tablet 5 mg PO Q8H PRN PRN (Reason: Pain Score 4-10) 3 Days Qty: 9 0RF Continued aspirin [Adult Aspirin Regimen] 81 mg tablet,delayed release (DR/EC) 81 mg PO QDAY atorvastatin 80 mg tablet 80 mg PO QDAY clopidogrel 75 mg tablet 75 mg PO QDAY hydrochlorothiazide 25 mg tablet 25 mg PO QDAY levothyroxine 75 mcg capsule 225 mcg PO QDAY amlodipine 5 mg tablet 5 mg PO DAILY Held metformin 1,000 mg tablet 1,000 mg PO BIDWMEAL Hold Instructions: Resume on 12/31/24. Other Ambulatory Orders: 12 Lead EKG (Routine) Timeframe: 20241221 Location: None Selected Ordered By: Dr. Roshan Burks 12 Lead EKG (Routine) Timeframe: 20241215 Location: None Selected Ordered By: Dr. Roshan Burks Disposition Disposition (needs filled in before D/C Order can be placed): Home, Self Care Charges/Coding Procedures Integumentary 111xxx-113xx: [id number] Global Visit
--- NOTE | 2024-12-29 10:02 | CASEMGMT ---
DEANNE ETIENNE Assessment Face to Face with patient for initial transition planning/care coordination assessment. RN JAIMIE introduced self and role at [facility], pt voices understanding. Pt is A&Ox4 and is resting comfortably in bed and is calm. Care providers, pharmacy, and demographics verified. Admitting dx: Carotid Artery Stenosis LACE Strata: 1 PCP: Rachel Marks Specialists: Vitaliy (Vascular), Dr Ben Justice Preferred Pharmacy: [facility] Insurance: [facility] Prescription Benefit: Yes LNOK: Tia (W) Living Arrangements: Pt lives with his and his 's uncle (Age 92) in a single story home with 3 steps to enter ADLs/IADLs: Indep. Denies concerns Transportation: Self, , friends. denies concerns DME: [employer]. Pulse ox HHC/SNF: Denies hx or needs Pt?s goal: home Plan: Home today, no additional needs identified. Pt plans to follow up with the vascular team on 01/12 as scheduled. Pt states that he feels safe returning home with his family today and denies any further questions or concerns at this time. Pt's RN herman. Agnes Boyer RN, CM
== END 2024-12-29 11:07 | disposition home or self-care (01) | DRG 36 ==
LOC: ICU 11:15 → ACINP 15:59
PROVIDERS: Admitting Provider Surgery Trauma Surgery; Referring Provider Surgery Trauma Surgery; Visit Provider Surgery Trauma Surgery
PROC: 037J3DZ Dilation of Left Common Carotid Artery with Intraluminal Device, Percutaneous Approach (ICD-10-PCS; CPT 37236; principal; 2024-12-28 06:45)
DX: I65.22 Occlusion and stenosis of left carotid artery (principal); E11.9 Type 2 diabetes mellitus without complications; I10 Essential (primary) hypertension; E78.5 Hyperlipidemia, unspecified; R00.1 Bradycardia, unspecified; Z79.84 Long term (current) use of oral hypoglycemic drugs; Z87.891 Personal history of nicotine dependence; Z90.49 Acquired absence of other specified parts of digestive tract
CPT/HCPCS: 36415; 37215; 80048; 82962; 83036; 84443; 85025; 85027; 85347; 86850; 86900; 86901; 93005; 94668; 94762; 99252; A4648; C1725; C1769; C1876; C1884; C1894; Q9967; G0463; J2405

== ENCOUNTER → 2025-05-11 | Outpatient (CLI) | payer MEDICARE, SELFPAY ==
--- NOTE | 2025-05-11 14:11 | CT_ITS ---
PROCEDURE: CTA HEAD AND NECK W/ CONTRAST 05/11/2025 REASON FOR EXAM: SEVERE L ICA STENOSIS >70% TECHNIQUE: Procedure Code: CTCTA.HDNCK Modality: CT Procedure: CTA HEAD AND NECK W/ CONTRAST Multiplanar Sagittal and Coronal images were obtained. CONTRAST: VOLUME: mL One or more dose reduction techniques were used (e.g., Automated exposure control, adjustment of the mA and/or kV according to patient size, use of iterative reconstruction technique). COMPARISON: 09/14/2024. FINDINGS: HEAD: Atherosclerotic calcifications within the cavernous and supraclinoid segments of the bilateral ICAs result in less than 50% luminal narrowing. Otherwise the intracranial segments of the bilateral ICAs appear unremarkable. The bilateral ACAs appear unremarkable. The anterior communicating artery is patent. The bilateral MCAs appear unremarkable. Atherosclerotic calcifications within the intracranial segment of the left vertebral artery results in focal high-grade stenosis, with greater than 70% luminal stenosis. Atherosclerotic calcifications within the intracranial segment of the right vertebral artery results in less than 50% luminal narrowing. The basilar artery is unremarkable. The bilateral executive casino host are unremarkable. NECK: A patent endovascular stent is noted within the distal left common carotid artery, left carotid bulb, and proximal cervical left ICA. Mild calcified and soft atherosclerotic plaque within the bilateral common carotid arteries, carotid bulbs, and proximal ICAs result in less than 50% luminal narrowing. The cervical segments of the bilateral vertebral arteries appear unremarkable. No hemodynamically significant stenosis, major vessel occlusion/dissection, or aneurysm greater than [address]/CTA Head AND Neck W/ Contrast IMPRESSION: Focal high-grade stenosis within the intracranial segment (V4) of the left vert ebral artery, with greater than 70% luminal stenosis. This is similar to the previous study. Patent endovascular stent within the distal left common carotid artery, left ca rotid bulb, and proximal cervical left ICA. This is new since the previous study. Reading Location: [id number]
[2025-05-11 14:57] LABS: CREATININE FINGERSTICK 1.3 mg/dL (0.70-1.30); EGFR FINGERSTICK 60.0000 mL/min (>60)
== END | disposition home or self-care (01) ==
LOC: CT 14:09
PROVIDERS: Referring Provider Physician Assistant; Visit Provider Physician Assistant
DX: Z01.812 Encounter for preprocedural laboratory examination (principal); I65.22 Occlusion and stenosis of left carotid artery
CPT/HCPCS: 70496; 70498; Q9967